=== PATIENT | female | born 1950 | race Caucasian/White ===

== ENCOUNTER → 2019-09-03 15:00 | Outpatient (BNVA) | payer MEDICARE, SELFPAY | PROVIDERS: Family Provider Nurse Practitioner Family; PCP Specialist; Visit Provider Internal Medicine | DX: L40.50 Arthropathic psoriasis, unspecified (principal); I10 Essential (primary) hypertension; G62.9 Polyneuropathy, unspecified | CPT/HCPCS: 80053; 85025; 85651 ==

== ENCOUNTER → 2019-10-17 15:02 | Outpatient (BNVA) | payer MEDICARE, SELFPAY | PROVIDERS: Family Provider Nurse Practitioner Family; PCP Specialist; Visit Provider Internal Medicine Rheumatology | DX: M19.90 Unspecified osteoarthritis, unspecified site (principal); Z79.899 Other long term (current) drug therapy; Z11.59 Encounter for screening for other viral diseases; Z11.1 Encounter for screening for respiratory tuberculosis; L40.0 Psoriasis vulgaris; Z72.89 Other problems related to lifestyle | CPT/HCPCS: 36415; 80076; 82306; 82565; 85025; 85651; 86140; 86431; 86480; 86704; 86803; 87340; 99204 ==

== ENCOUNTER 2019-10-22 12:22 | Outpatient (CLI) | payer MEDICARE, SELFPAY ==
--- NOTE | 2019-10-22 12:27 | XR_ITS ---
WS: [id number] RIGHT HAND: 3 VIEW(S) TECHNIQUE: PA, oblique and lateral. HISTORY: inflammatory arthritis COMPARISON: None available. No acute fracture or dislocation. Mild diffuse interphalangeal joint space narrowing. Most significant at the second DIP joint. No subl uxations. No erosions at the metacarpal heads. No ulnar styloid erosion. XR/XR hand RT min 3V* [id number] IMPRESSION: Mild osteoarthritis.
--- NOTE | 2019-10-22 12:27 | XR_ITS ---
WS: [id number] CHEST 2 VIEWS HISTORY: inflammatory arthritis COMPARISON: 06/24/2013 Lungs: Clear with no abnormality. No pleural effusion or pneumothorax. Cardiac size: Normal. Mediastinum/Aorta: Mild atherosclerosis aorta. Bones: Thoracic spondylosis. XR/XR chest 2V* [id number] IMPRESSION: Mild atherosclerosis aorta.
--- NOTE | 2019-10-22 12:27 | XR_ITS ---
WS: [id number] LEFT HAND: 3 VIEW(S) TECHNIQUE: PA, oblique and lateral. HISTORY: inflammatory arthritis COMPARISON: None available. No acute fracture or dislocation. Mild interphalangeal joint space narrowing. No erosions at the metacarpal heads. XR/XR hand LT min 3V* [id number] IMPRESSION: Mild osteoarthritis. No metacarpal head erosions.
--- NOTE | 2019-10-22 12:27 | XR_ITS ---
WS: [id number] LEFT FOOT: 3 VIEW(S) TECHNIQUE: AP, oblique and lateral. HISTORY: inflammatory arthritis COMPARISON: 10/22/2008 No acute fracture or dislocation. Normal tarsal/metatarsal alignment. No erosions. No soft tissue abnormality or bone destruction. Moderate calcaneal spur. XR/XR foot LT min 3V* [id number] IMPRESSION: No metatarsal erosions. Moderate calcaneal spur.
--- NOTE | 2019-10-22 12:27 | XR_ITS ---
WS: [id number] RIGHT FOOT: 3 VIEW(S) TECHNIQUE: AP, oblique and lateral. HISTORY: inflammatory arthritis COMPARISON: 10/22/2008 No acute fracture or dislocation. Normal tarsal/metatarsal alignment. No erosions. No soft tissue abnormality or bone destruction. Small calcaneal spur. XR/XR foot RT min 3V* [id number] IMPRESSION: No erosions or inflammatory arthritic changes.
== END 2019-10-22 12:23 | disposition home or self-care (01) ==
LOC: RADWPI 12:26
PROVIDERS: Family Provider Nurse Practitioner Family; PCP Specialist; Visit Provider Internal Medicine Rheumatology
DX: M77.31 Calcaneal spur, right foot; M19.042 Primary osteoarthritis, left hand; M19.041 Primary osteoarthritis, right hand; M77.32 Calcaneal spur, left foot; I70.0 Atherosclerosis of aorta
CPT/HCPCS: 71046; 73130; 73630

== ENCOUNTER 2019-11-06 20:48 | Emergency (ER) | payer MEDICARE, SELFPAY ==
[2019-11-06 21:07] VITALS: BP 164/73; PULSE 70; RESP 16; TEMP 36.7; O2SAT 99; BMI 26.4
--- NOTE | 2019-11-06 21:27 | W.ED.GENADLT ---
HPI - General Adult General: Chief complaint: General Medical Stated complaint: back pain Time Seen by Provider: 11/06/19 21:27 History of Present Illness: HPI narrative: Patient is a 69-year-old female who comes to the ED with right-sided abdominal and back pain. Past medical history of psoriatic arthritis, hypertension, peripheral neuropathy and hyperlipidemia. patient says pain started about 2 weeks ago, but has gotten significantly worse in the last 2 to 3 days. Patient says the pain is rated as a 9 out of 10. Location of the pain is right upper quadrant of the abdomen and right thoracic back. Patient has a prescription for hydrocodone's for her psoriatic arthritis and has taken those to help with right sided abdominal pain and that has not provided any relief. Denies any recent trauma or injury to cause pain. Endorses decreased appetite and having some nausea and vomiting due to pain over the last 24 hours. She denies any fever, chills, diarrhea, constipation, dysuria, hematuria. Associated symptoms: Reports nausea and vomiting; Deny chest pain, dyspnea, headache(s), rash or palpitations Review of Systems Const: Reports: change in appetite (decrease); Denies: fever(s), chills or fatigue Eyes: Denies: change in vision or eye discomfort ENMT: Denies: throat pain, odynophagia, nasal discharge or nasal congestion Card: Denies: chest pain, palpitations, edema, swelling of feet/ankles, dyspnea on exertion or orthopnea Resp: Denies: dyspnea, productive cough or non-productive cough GI: Reports: abdominal pain, nausea and vomiting; Denies: diarrhea, constipation or hematochezia : Denies: flank pain, dysuria or hematuria Musc: Reports: back pain (right sided thoracic back pain); Denies: neck pain or extremity swelling Skin/Breast: Denies: rash or new lesions Neuro: Denies: headache(s), numbness in extremities or weakness in extremities PFS ED PFSH: Medical History Depression Essential (primary) hypertension Hyperlipemia Peripheral neuropathy Surgical History History of appendectomy History of carpal tunnel surgery History of section Family History Mother Cancer Other Aneurysm COPD (chronic obstructive pulmonary disease) Social History Smoking and tobacco status: former smoker Alcohol intake: former History of recent travel: No Current gender identity: Female Physical Exam Const: COMMON NORMALS: no acute distress, patient oriented x3 and alert GENERAL APPEARANCE: cooperative, comfortable and well hydrated HENMT: COMMON NORMALS: normocephalic HEAD & SCALP: normocephalic MOUTH: Normal oral and palatal mucosa present THROAT: posterior oropharynx normal and uvula midline Eye: COMMON NORMALS: Equal, round and reactive pupils present PUPIL: Yes Equal, round and reactive pupils present Neck/C-Spine: COMMON NORMALS: supple GENERAL: Yes normal visual inspection Resp: COMMON NORMALS: normal respiratory effort, No retractions, No use of accessory muscles and clear to auscultation bilaterally AUSCULTATION: clear to auscultation bilaterally Cardio: COMMON NORMALS: regular rate, regular rhythm, S1 normal heart sound present, S2 normal heart sound present, No gallops present (Cardio), No clicks present (Cardio), No murmurs present (Cardio) and Peripheral pulses 2+ throughout RATE: regular rate RHYTHM: regular rhythm HEART SOUNDS: S1 normal heart sound present and S2 normal heart sound present PERIPHERAL PULSES: Peripheral pulses 2+ throughout GI: COMMON NORMALS: Soft to palpation, non-tender and no masses INSPECTION: Yes normal to inspection and Yes central obesity AUSCULTATION: Yes normoactive bowel sounds PALPATION: Yes Soft to palpation and Yes Tenderness to palpation present (GI) Details: RUQ (mod tenderness, Positive dunham's sign) : COMMON NORMALS: Yes no CVA tenderness BLADDER/KIDNEY EXAM: Yes no CVA tenderness Back/Pelvis: COMMON NORMALS: no CVA tenderness Extremity: COMMON NORMALS: normal to inspection and no pedal edema Neuro: COMMON NORMALS: patient oriented x3 and moves all extremities SENSORIUM/ORIENTATION: Yes alert Skin: COMMON NORMALS: no rashes or lesions noted GENERAL SKIN EXAM: no rashes or lesions noted and dry skin Course Vital Signs: Vital signs: Vital Signs Temperature 98.1 F 11/06/19 21:07 Pulse Rate 60 11/07/19 00:30 Respiratory Rate 16 11/07/19 00:30 Blood Pressure 148/77 11/07/19 00:30 Pulse Oximetry 98 11/07/19 00:30 MDM - General Adult MDM Narrative: Medical decision making narrative: Patient is a 69-year-old female comes to the ED with right-sided abdominal pain and back pain. Physical exam was remarkable for right upper quadrant tenderness and a positive Dunham sign. Vital signs BP 148/77, pulse 60, respirations 16, temp 98.1, O2 98% on room air. CBC and UA was unremarkable, patient had a creatinine of 1.5 and a GFR of 32 but after looking back in patient's records that appears to be her norm. Sodium was 132. Total bili 0.3. ultrasound gallbladder was performed and showed some common bile duct dilation but no gallbladder wall thickness or stones seen. Patient was given IV fluids, Zofran and morphine to help manage pain while here in the ED. Patient diagnosed with biliary colic and told to follow-up with PCP in the next 5 to 7 days. I placed general surgery referral with case management. Patient has previously prescribed hydrocodone meds for psoriatic arthritis pain and I told her to take her hydrocodone pills to help with pain as needed. I told patient she can return to the ED if she is have any worsening symptoms. Patient understood and agreed with plan. Lab Data: Attestation: I reviewed the patient's lab results. Labs: Lab Results 11/06/19 11/06/19 11/06/19 Range/Units 22:40 22:40 23:01 WBC 8.6 (4.0-10.0) 10^3/ uL RBC 4.10 (4.1-5.3) 10^6/u L Hgb 11.7 (11.5-15.3) g/dL Hct 35.4 L (37.0-47.0) % MCV 86.3 (81-99) fL MCH 28.5 (28.0-34.0) pg MCHC 33.1 (30.0-36.0) g/dL RDW 12.7 (12.1-15.1) % Plt Count 306 (130-400) 10^3/c mm MPV 9.5 (7.4-10.4) fL Neut % (Auto) 61.8 % Lymph % (Auto) 28.2 % [place] % (Auto) 5.8 % Eos % (Auto) 3.5 % Baso % (Auto) 0.5 % Neut # (Auto) 5.3 (1.8-7.7) 10^3/u L Lymph # (Auto) 2.4 (0.8-4.8) 10^3/u L [place] # (Auto) 0.5 (0.2-0.9) 10^3/u L Eos # (Auto) 0.3 (0.0-0.8) 10^3/u L Baso # (Auto) 0.0 (0.0-0.1) 10^3/u L Nucleated RBC % (a uto) 0 % Nucleated RBCs # 0.0 /100WBC Sodium 132 L (136-145) mmol/L Potassium 4.2 (3.5-5.1) mmol/L Chloride 95 L (98-107) mmol/L Carbon Dioxide 22 (22-29) mmol/L Anion Gap 19.2 H (5-19) BUN 32 H (8-23) mg/dL Creatinine 1.5 H (0.5-0.9) mg/dL GFR Calculation 34.6 L (90-130) mL/min Glucose 115 (65-115) mg/dL Calculated Osmolal ity 272 L (285-295) mOsm/k g Calcium 10.4 (8.5-10.5) mg/dL Total Bilirubin 0.3 (0.15-1.2) mg/dL AST 22 (0-32) U/L ALT 14 (0-33) U/L Alkaline Phosphata se 109 H (35-105) IU/L Total Protein 8.4 (6.6-8.7) g/dL Albumin 4.7 (3.5-5.2) g/dL Globulin 3.7 (1.3-4.6) g/dL Lipase 22 (13-60) U/L Urine Color Yellow (Yellow) Urine Appearance Clear (CLEAR) Urine pH 5 (5-7) Ur Specific Gravit y 1.010 (1.005-1.030) Urine Protein Neg (Negative) Urine Glucose (UA) Norm (Normal) Urine Ketones Negative (Negative) Urine Blood 2+ H (Negative) Urine Nitrate Negative (Negative) Urine Bilirubin Neg (NEGATIVE) Urine Urobilinogen Norm (Negative) mg/dL Ur Leukocyte Jia ase 1+ H (Negative) Urine RBC Rare (0-2) /hpf Urine WBC 0-4 H (0-5) /hpf Ur Squamous Epith Cells 0-4 H (0-5) Urine Bacteria 1+ H (NONE) Imaging Data^: US: Attestation: I personally reviewed and interpreted this imaging study as follows: Radiologist's impression: Ultrasound gallbladder?prelim report--no gallbladder wall thickening, stones or inflammation. Common bile duct is dilated. Discharge Plan Discharge Patient Disposition: Home, Self-Care Clinical Impression: Biliary colic symptom Condition: Stable Prescriptions: No Action losartan-hydrochlorothiazide [Hyzaar] 100-25 mg tablet 1 tab PO DAILY RF: 0 amlodipine 2.5 mg tablet 2.5 mg PO DAILY RF: 0 hydrochlorothiazide 12.5 mg tablet 12.5 mg PO DAILY RF: 0 hydrocodone-acetaminophen [[place]] 7.5-325 mg tablet 1 - 2 tab PO Q6H PRNRF: 0 baclofen 10 mg tablet 10 mg PO TID RF: 0 ciprofloxacin HCl 500 mg tablet 500 mg PO BID Qty: 14 RF: 0 leflunomide 10 mg tablet 10 mg PO DAILY Qty: 30 RF: 2 Linzess 290 mcg capsule 290 mcg PO DAILY Qty: 30 RF: 3 Enbrel 50 mg/mL (1 mL) syringe 50 mg SUBCUT .Q7days Qty: 4 RF: 3 Discharge Orders: Discharge Order (Routine); Ordered 11/06/19 Ordered By: Alan Waldron Referrals: BRADFORD Travis, [facility] [Primary Care Provider] - Discharge Diet: Low Fat Discharge Activity: Resume usual activity Patient Instructions: Biliary Colic (ED) Activity Restrictions/Additional Instructions: Call your PCP to set up a follow-up appointment in the next 5 to 7 days. I placed a referral to general surgery, so you should be receiving a call from them to schedule an appointment in the next few days. Monitor your diet and try to avoid greasy and fatty foods that could aggravate symptoms. If you are having any pain you can take your previously prescribed hydrocodone tablets. Drink plenty of fluids and stay hydrated. 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
--- NOTE | 2019-11-06 22:11 | US_ITS ---
WS: [id number] ULTRASOUND ABDOMEN LIMITED CLINICAL INFORMATION: RUQ pain with positive johnson's sign COMPARISON: None. FINDINGS: Liver Size: Normal. Craniocaudal length: 11.9 cm. Echogenicity: Normal. Surface nodularity: None. Mass (size and location): None. Bile ducts Intrahepatic ducts: Dilated Common bile duct diameter: 1.3 cm. Gallbladder Fluid distended gallbladder. No significant gallbladder wall thickening. Gallbladder wall measures 1. 2 mm. No pericholecystic fluid. Pancreas Normal as visualized. Right kidney: Normal. Hydronephrosis: None. Size: 10.1 cm x 4.1 cm x 4.3 cm. Abdominal aorta and IVC Visualized portions are normal. Ascites: None. US/US gall bladder [id number] IMPRESSION: 1. Fluid distended gallbladder with normal gallbladder wall. No significant ch olelithiasis. 2. Dilated extrahepatic and common bile duct. Common bile duct measures 13 mm. This can be further evaluated MRCP.
[2019-11-06 22:48] LABS: Basophils % 0.5 %; Eosinophils # 0.3 10^3/uL (0.0-0.8); Eosinophils % 3.5 %; Hematocrit 35.4 % (37.0-47.0); Hemoglobin 11.7 g/dL (11.5-15.3); Lymphocytes # 2.4 10^3/uL (0.8-4.8); Lymphocytes % 28.2 %; Mean Corpuscular HGB Conc 33.1 g/dL (30.0-36.0); Mean Corpuscular Hemoglobin 28.5 pg (28.0-34.0); Mean Corpuscular Volume 86.3 fL (81-99); Mean Platelet Volume 9.5 fL (7.4-10.4); Monocytes # 0.5 10^3/uL (0.2-0.9); Monocytes % 5.8 %; Neutrophils # 5.3 10^3/uL (1.8-7.7); Neutrophils % 61.8 %; Nucleated Red Blood Cells % 0 %; Platelet Count 306 10^3/cmm (130-400); Red Cell Distribution Width 12.7 % (12.1-15.1); White Blood Count 8.6 10^3/uL (4.0-10.0)
[2019-11-06] MEDS: ketorolac 30 mg/mL INJ IVP (22:48)
[2019-11-06] MEDS: orphenadrine 30 mg/mL Inj 2 mL 60 MG IVP (22:49)
[2019-11-06] MEDS: sodium chloride 0.9% 500 ML IV (22:49)
[2019-11-06 23:02] LABS: Alanine Aminotransferase 14 U/L (0-33); Albumin Level 4.7 g/dL (3.5-5.2); Alkaline Phosphatase 109 IU/L (35-105); Anion Gap 19.2 (5-19); Aspartate Amino Transferase 22 U/L (0-32); Blood Urea Nitrogen 32 mg/dL (8-23); Calcium 10.4 mg/dL (8.5-10.5); Carbon Dioxide 22 mmol/L (22-29); Chloride 95 mmol/L (98-107); Globulin 3.7 g/dL (1.3-4.6); Glomerular Filtration Rate 34.6 mL/min (90-130); Glucose 115 mg/dL (65-115); Lipase 22 U/L (13-60); Osmolality Calculated 272 mOsm/kg (285-295); Potassium 4.2 mmol/L (3.5-5.1); Sodium 132 mmol/L (136-145); Total Bilirubin 0.3 mg/dL (0.15-1.2); Total Protein 8.4 g/dL (6.6-8.7)
[2019-11-06 23:23] VITALS: RESP 18; O2SAT 98
[2019-11-06] MEDS: ondansetron 2 mg/ML SDV 2 mL 4 MG IVP (23:23)
[2019-11-06] MEDS: morphine 4 mg/mL SDV 1 mL IVP (23:23)
[2019-11-06 23:33] LABS: Bacteria Urine 1+; Bilirubin Urine Neg (NEGATIVE); Blood Urine 2+ (Negative); Glucose Urine UA Norm (Normal); Ketones Urine Negative (Negative); Leukocyte Esterase Urine 1+ (Negative); Nitrate Urine Negative (Negative); Protein Urine Neg (Negative); RBC Urine RARE /hpf (0-2); Squamous Epithelial Cell Urine 0-4 (0-5); Urine Appearance Clear (CLEAR); Urine Color Yellow (Yellow); Urobilinogen Urine Norm (Negative); WBC Urine 0-4 /hpf (0-5); pH Urine 5 (5-7)
[2019-11-07 00:30] VITALS: BP 148/77; PULSE 60; RESP 16; O2SAT 98
--- NOTE | 2019-11-07 10:33 | DCPLANNER ---
manager property had message to schedule a follow up appointment for patient with general surgery. manager property called [facility], spoke with Maria E, a follow up appointment was scheduled for Tuesday, November 12, 2019 at 3:[address] Slaughter. Clinic will call patient with appointment information.
--- NOTE | 2019-11-13 14:21 | DCPLANNER ---
Patients appointment scheduled for 11.12.19 with [facility] was cancelled.
== END 2019-11-07 00:32 | disposition home or self-care (01) ==
PROVIDERS: Emergency Provider Physician Assistant; PCP Nurse Practitioner Family
DX: K80.50 Calculus of bile duct without cholangitis or cholecystitis without obstruction (principal); I10 Essential (primary) hypertension; E78.5 Hyperlipidemia, unspecified; Z87.891 Personal history of nicotine dependence
CPT/HCPCS: 12345; 76705; 80053; 81001; 83690; 85025; 96361; 96374; 96375; 99282; 99283; J1885; J2270; J2360; J2405; J7040

== ENCOUNTER 2019-11-28 09:21 | Outpatient (CLI) | payer MEDICARE, SELFPAY ==
[2019-11-28 10:10] LABS: Basophils % 0.7 %; Eosinophils # 0.2 10^3/uL (0.0-0.8); Eosinophils % 4.5 %; Hematocrit 36.8 % (37.0-47.0); Hemoglobin 11.9 g/dL (11.5-15.3); Lymphocytes # 2.2 10^3/uL (0.8-4.8); Lymphocytes % 50.7 %; Mean Corpuscular HGB Conc 32.3 g/dL (30.0-36.0); Mean Corpuscular Hemoglobin 29.2 pg (28.0-34.0); Mean Corpuscular Volume 90.2 fL (81-99); Mean Platelet Volume 9.9 fL (7.4-10.4); Monocytes # 0.3 10^3/uL (0.2-0.9); Monocytes % 5.7 %; Neutrophils # 1.7 10^3/uL (1.8-7.7); Neutrophils % 38.2 %; Nucleated Red Blood Cells % 0 %; Platelet Count 275 10^3/cmm (130-400); Red Blood Count 4.08 10^6/uL (4.1-5.3); Red Cell Distribution Width 13.1 % (12.1-15.1); White Blood Count 4.4 10^3/uL (4.0-10.0)
[2019-11-28 10:24] LABS: Alanine Aminotransferase 10 U/L (0-33); Albumin Level 4.7 g/dL (3.5-5.2); Alkaline Phosphatase 104 IU/L (35-105); Aspartate Amino Transferase 16 U/L (0-32); Globulin 2.7 g/dL (1.3-4.6); Glomerular Filtration Rate 37.5 mL/min (90-130); Total Bilirubin 0.2 mg/dL (0.15-1.2); Total Protein 7.4 g/dL (6.6-8.7)
[2019-11-28 11:04] LABS: C Reactive Protein 0.8 mg/L (0.0-4.9)
[2019-11-28 11:10] LABS: Erythrocyte Sedimentation Rate 38 mm/hr (0-15)
== END 2019-11-28 09:22 | disposition home or self-care (01) ==
LOC: LAB 09:27
PROVIDERS: PCP Internal Medicine; Visit Provider Internal Medicine Rheumatology
DX: L40.50 Arthropathic psoriasis, unspecified (principal); Z79.899 Other long term (current) drug therapy
CPT/HCPCS: 36415; 80076; 82565; 85025; 85651; 86140

== ENCOUNTER → 2019-12-24 13:00 | Outpatient (BNVA) | payer MEDICARE, SELFPAY | PROVIDERS: PCP Nurse Practitioner Family; Visit Provider Internal Medicine Rheumatology | DX: L40.50 Arthropathic psoriasis, unspecified (principal); L40.0 Psoriasis vulgaris; Z79.899 Other long term (current) drug therapy; K82.8 Other specified diseases of gallbladder | CPT/HCPCS: 99214 ==

== ENCOUNTER 2020-01-14 07:54 | Outpatient (CLI) | payer MEDICARE, SELFPAY ==
--- NOTE | 2020-01-14 08:02 | NM_ITS ---
WS: [id number] NUCLEAR MEDICINE HIDA SCAN CLINICAL INFORMATION: DYSFUNCTIONAL GALLBLADDER TECHNIQUE: Following intravenous administration of 8.2 mCi of technetium 99m mebrofenin, images of th e abdomen were obtained over the course of 60 minutes. Next, gallbladder ejection fraction was determ ined by obtaining preprandial and one-hour postprandial images of the gallbladder following oral shawn stion of Ensure. COMPARISON: Ultrasound November 06, 2019 and HIDA 8 FINDINGS: Normal hepatic uptake at 5 minutes. Common bile duct is visualized by 20 minutes. Normal gallbladder at 40 minutes. No evidence of acute cholecystitis. Gallbladder ejection fraction 68% within normal limits. No evidence of chronic cholecystitis. NM/NM hepatobiliary w phar* [id number] IMPRESSION: 1. No evidence of acute or chronic cholecystitis. 2. Gallbladder ejection fraction 68% within normal limits
== END 2020-01-14 07:55 | disposition home or self-care (01) ==
PROVIDERS: PCP Nurse Practitioner Family; Visit Provider Internal Medicine
DX: K82.8 Other specified diseases of gallbladder (principal)
CPT/HCPCS: 78227; A9537

== ENCOUNTER → 2020-05-03 13:03 | Outpatient (BNVA) | payer MEDICARE, SELFPAY | PROVIDERS: PCP Internal Medicine; Visit Provider Internal Medicine Rheumatology | DX: L40.50 Arthropathic psoriasis, unspecified (principal); Z79.899 Other long term (current) drug therapy; L40.0 Psoriasis vulgaris; M15.9 Polyosteoarthritis, unspecified; Z87.891 Personal history of nicotine dependence | CPT/HCPCS: 99214 ==

== ENCOUNTER 2020-05-05 09:13 | Outpatient (CLI) | payer MEDICARE, SELFPAY ==
[2020-05-05 09:42] LABS: Basophils % 0.1 %; Hematocrit 37.2 % (37.0-47.0); Lymphocytes % 12.9 %; Mean Corpuscular HGB Conc 32.3 g/dL (30.0-36.0); Mean Corpuscular Hemoglobin 29.8 pg (28.0-34.0); Mean Corpuscular Volume 92.3 fL (81-99); Mean Platelet Volume 9.7 fL (7.4-10.4); Monocytes # 0.4 10^3/uL (0.2-0.9); Monocytes % 5.3 %; Neutrophils # 6.53 10^3/uL (1.8-7.7); Neutrophils % 81.1 %; Nucleated Red Blood Cells % 0 %; Platelet Count 259 10^3/cmm (130-400); Red Blood Count 4.03 10^6/uL (4.1-5.3); Red Cell Distribution Width 13.5 % (12.1-15.1); White Blood Count 8.1 10^3/uL (4.0-10.0)
[2020-05-05 10:02] LABS: Alanine Aminotransferase 211 U/L (0-33); Albumin Level 4.7 g/dL (3.5-5.2); Alkaline Phosphatase 153 IU/L (35-105); Aspartate Amino Transferase 80 U/L (0-32); C Reactive Protein 0.4 mg/L (0.0-4.9); Globulin 3.1 g/dL (1.3-4.6); Glomerular Filtration Rate 32.2 mL/min (90-130); Total Bilirubin 0.2 mg/dL (0.15-1.2); Total Protein 7.8 g/dL (6.6-8.7)
[2020-05-05 10:35] LABS: Erythrocyte Sedimentation Rate 28 mm/hr (0-15)
== END 2020-05-05 09:14 | disposition home or self-care (01) ==
LOC: LAB 09:18
PROVIDERS: PCP Internal Medicine; Visit Provider Internal Medicine Rheumatology
DX: Z79.899 Other long term (current) drug therapy (principal)
CPT/HCPCS: 36415; 80076; 82565; 85025; 85651; 86140

== ENCOUNTER → 2020-05-12 11:00 | Outpatient (BNVA) | payer MEDICARE, SELFPAY | PROVIDERS: PCP Internal Medicine; Visit Provider Internal Medicine Rheumatology | DX: Z79.899 Other long term (current) drug therapy (principal) | CPT/HCPCS: 80076; 82565; 85025; 85651; 86140 ==

== ENCOUNTER 2020-05-21 13:34 | Outpatient (CLI) | payer MEDICARE, SELFPAY ==
[2020-05-21 14:14] LABS: Basophils % 0.6 %; Eosinophils # 0.1 10^3/uL (0.0-0.8); Eosinophils % 2.7 %; Hematocrit 34.7 % (37.0-47.0); Hemoglobin 11.2 g/dL (11.5-15.3); Lymphocytes % 42.1 %; Mean Corpuscular HGB Conc 32.3 g/dL (30.0-36.0); Mean Corpuscular Hemoglobin 29.6 pg (28.0-34.0); Mean Corpuscular Volume 91.6 fL (81-99); Monocytes # 0.5 10^3/uL (0.2-0.9); Monocytes % 10.5 %; Neutrophils # 2.08 10^3/uL (1.8-7.7); Neutrophils % 43.7 %; Nucleated Red Blood Cells % 0 %; Platelet Count 204 10^3/cmm (130-400); Red Blood Count 3.79 10^6/uL (4.1-5.3); Red Cell Distribution Width 13.4 % (12.1-15.1); White Blood Count 4.8 10^3/uL (4.0-10.0)
[2020-05-21 14:34] LABS: Alanine Aminotransferase 66 U/L (0-33); Albumin Level 3.8 g/dL (3.5-5.2); Alkaline Phosphatase 79 IU/L (35-105); Aspartate Amino Transferase 46 U/L (0-32); Globulin 2.8 g/dL (1.3-4.6); Glomerular Filtration Rate 40.9 mL/min (90-130); Total Bilirubin 0.3 mg/dL (0.15-1.2); Total Protein 6.6 g/dL (6.6-8.7)
== END 2020-05-21 13:35 | disposition home or self-care (01) ==
PROVIDERS: PCP Internal Medicine; Visit Provider Internal Medicine Rheumatology
DX: L40.0 Psoriasis vulgaris (principal); Z79.899 Other long term (current) drug therapy
CPT/HCPCS: 36415; 80076; 82565; 85025

== ENCOUNTER 2020-06-14 16:53 | Outpatient (CLI) | payer MEDICARE, SELFPAY ==
[2020-06-14 17:33] LABS: Basophils % 0.7 %; Eosinophils # 0.3 10^3/uL (0.0-0.8); Eosinophils % 6.1 %; Hematocrit 37.7 % (37.0-47.0); Hemoglobin 11.9 g/dL (11.5-15.3); Lymphocytes # 2.1 10^3/uL (0.8-4.8); Lymphocytes % 47.3 %; Mean Corpuscular HGB Conc 31.6 g/dL (30.0-36.0); Mean Corpuscular Hemoglobin 29.5 pg (28.0-34.0); Mean Corpuscular Volume 93.5 fL (81-99); Monocytes # 0.4 10^3/uL (0.2-0.9); Monocytes % 9.9 %; Neutrophils # 1.59 10^3/uL (1.8-7.7); Neutrophils % 35.8 %; Nucleated Red Blood Cells % 0 %; Platelet Count 254 10^3/cmm (130-400); Red Blood Count 4.03 10^6/uL (4.1-5.3); Red Cell Distribution Width 12.8 % (12.1-15.1); White Blood Count 4.4 10^3/uL (4.0-10.0)
[2020-06-14 17:48] LABS: INR 0.99 (0.8-1.2)
[2020-06-14 17:49] LABS: Partial Thromboplastin Time 34.5 SECONDS (23.9-36.7)
== END 2020-06-14 16:54 | disposition home or self-care (01) ==
PROVIDERS: PCP Internal Medicine; Visit Provider Internal Medicine Gastroenterology
DX: K75.4 Autoimmune hepatitis (principal)
CPT/HCPCS: 36415; 85025; 85610; 85730

== ENCOUNTER 2020-08-17 12:53 | Outpatient (CLI) | payer MEDICARE, SELFPAY ==
[2020-08-17 13:19] LABS: Basophils % 0.1 %; Hematocrit 41.8 % (37.0-47.0); Hemoglobin 13.4 g/dL (11.5-15.3); Lymphocytes # 1.5 10^3/uL (0.8-4.8); Mean Corpuscular HGB Conc 32.1 g/dL (30.0-36.0); Mean Corpuscular Hemoglobin 29.8 pg (28.0-34.0); Mean Corpuscular Volume 93.1 fL (81-99); Monocytes # 0.3 10^3/uL (0.2-0.9); Monocytes % 2.8 %; Neutrophils # 8.52 10^3/uL (1.8-7.7); Neutrophils % 82.4 %; Nucleated Red Blood Cells % 0 %; Platelet Count 319 10^3/cmm (130-400); Red Blood Count 4.49 10^6/uL (4.1-5.3); Red Cell Distribution Width 12.2 % (12.1-15.1); White Blood Count 10.3 10^3/uL (4.0-10.0)
[2020-08-17 13:30] LABS: INR 0.91 (0.8-1.2)
[2020-08-17 13:31] LABS: Partial Thromboplastin Time 20.6 SECONDS (23.9-36.7)
== END 2020-08-17 12:54 | disposition home or self-care (01) ==
LOC: LAB 12:55
PROVIDERS: PCP Internal Medicine; Visit Provider Internal Medicine Gastroenterology
DX: K75.4 Autoimmune hepatitis (principal)
CPT/HCPCS: 36415; 85025; 85610; 85730

== ENCOUNTER 2020-09-22 09:50 | Outpatient (CLI) | payer MEDICARE, SELFPAY ==
[2020-09-22 10:27] LABS: Basophils % 0.3 %; Eosinophils % 0.3 %; Hematocrit 37.5 % (37.0-47.0); Hemoglobin 11.6 g/dL (11.5-15.3); Lymphocytes # 1.1 10^3/uL (0.8-4.8); Mean Corpuscular HGB Conc 30.9 g/dL (30.0-36.0); Mean Corpuscular Volume 93.8 fL (81-99); Mean Platelet Volume 8.9 fL (7.4-10.4); Monocytes # 0.3 10^3/uL (0.2-0.9); Monocytes % 4.5 %; Neutrophils # 6.06 10^3/uL (1.8-7.7); Neutrophils % 80.1 %; Nucleated Red Blood Cells % 0 %; Platelet Count 255 10^3/cmm (130-400); Red Cell Distribution Width 13.5 % (12.1-15.1); White Blood Count 7.6 10^3/uL (4.0-10.0)
[2020-09-22 10:43] LABS: Alanine Aminotransferase 15 U/L (0-33); Albumin Level 4.1 g/dL (3.5-5.2); Alkaline Phosphatase 41 IU/L (35-105); Anion Gap 13.3 (5-19); Aspartate Amino Transferase 13 U/L (0-32); Blood Urea Nitrogen 22 mg/dL (8-23); Calcium 8.8 mg/dL (8.5-10.5); Carbon Dioxide 28 mmol/L (22-29); Chloride 102 mmol/L (98-107); Globulin 2.6 g/dL (1.3-4.6); Glomerular Filtration Rate 49.4 mL/min (90-130); Glucose 104 mg/dL (65-115); Osmolality Calculated 292 mOsm/kg (285-295); Potassium 4.3 mmol/L (3.5-5.1); Sodium 139 mmol/L (136-145); Total Bilirubin 0.3 mg/dL (0.15-1.2); Total Protein 6.7 g/dL (6.6-8.7)
== END 2020-09-22 09:51 | disposition home or self-care (01) ==
LOC: LAB 10:03
PROVIDERS: PCP Internal Medicine; Visit Provider Internal Medicine Gastroenterology
DX: K75.4 Autoimmune hepatitis (principal)
CPT/HCPCS: 36415; 80053; 85025

== ENCOUNTER 2020-10-14 13:36 | Outpatient (CLI) | payer MEDICARE, SELFPAY ==
[2020-10-14 14:03] LABS: Basophils % 0.2 %; Hematocrit 36.8 % (37.0-47.0); Hemoglobin 11.8 g/dL (11.5-15.3); Lymphocytes # 1.5 10^3/uL (0.8-4.8); Lymphocytes % 17.5 %; Mean Corpuscular HGB Conc 32.1 g/dL (30.0-36.0); Mean Corpuscular Hemoglobin 29.2 pg (28.0-34.0); Mean Corpuscular Volume 91.1 fL (81-99); Mean Platelet Volume 9.1 fL (7.4-10.4); Monocytes # 0.3 10^3/uL (0.2-0.9); Monocytes % 3.8 %; Neutrophils # 6.78 10^3/uL (1.8-7.7); Neutrophils % 77.5 %; Nucleated Red Blood Cells % 0 %; Platelet Count 346 10^3/cmm (130-400); Red Blood Count 4.04 10^6/uL (4.1-5.3); Red Cell Distribution Width 13.3 % (12.1-15.1); White Blood Count 8.8 10^3/uL (4.0-10.0)
[2020-10-14 14:15] LABS: Alanine Aminotransferase 11 U/L (0-33); Alkaline Phosphatase 50 IU/L (35-105); Anion Gap 15.6 (5-19); Aspartate Amino Transferase 12 U/L (0-32); Blood Urea Nitrogen 18 mg/dL (8-23); Calcium 8.7 mg/dL (8.5-10.5); Carbon Dioxide 24 mmol/L (22-29); Chloride 102 mmol/L (98-107); Globulin 2.5 g/dL (1.3-4.6); Glomerular Filtration Rate 55.1 mL/min (90-130); Glucose 102 mg/dL (65-115); Osmolality Calculated 286 mOsm/kg (285-295); Potassium 4.6 mmol/L (3.5-5.1); Sodium 137 mmol/L (136-145); Total Bilirubin 0.3 mg/dL (0.15-1.2); Total Protein 6.5 g/dL (6.6-8.7)
== END 2020-10-14 13:37 | disposition home or self-care (01) ==
LOC: LAB 13:39
PROVIDERS: PCP Internal Medicine; Visit Provider Internal Medicine Gastroenterology
DX: K75.4 Autoimmune hepatitis (principal)
CPT/HCPCS: 36415; 80053; 85025

== ENCOUNTER → 2020-10-20 13:11 | Outpatient (BNVA) | payer MEDICARE, SELFPAY | PROVIDERS: PCP Internal Medicine; Visit Provider Internal Medicine Rheumatology | DX: L40.50 Arthropathic psoriasis, unspecified (principal); L40.0 Psoriasis vulgaris; K75.4 Autoimmune hepatitis; Z79.899 Other long term (current) drug therapy; K82.8 Other specified diseases of gallbladder; Z87.891 Personal history of nicotine dependence | CPT/HCPCS: 99214 ==

== ENCOUNTER 2020-11-18 16:53 | Outpatient (CLI) | payer MEDICARE, SELFPAY ==
[2020-11-18 17:25] LABS: Basophils % 0.4 %; Eosinophils # 0.1 10^3/uL (0.0-0.8); Eosinophils % 1.8 %; Hemoglobin 11.4 g/dL (11.5-15.3); Lymphocytes # 2.7 10^3/uL (0.8-4.8); Lymphocytes % 49.7 %; Mean Corpuscular HGB Conc 30.8 g/dL (30.0-36.0); Mean Corpuscular Hemoglobin 28.4 pg (28.0-34.0); Monocytes # 0.4 10^3/uL (0.2-0.9); Neutrophils % 40.7 %; Nucleated Red Blood Cells % 0 %; Platelet Count 364 10^3/cmm (130-400); Red Blood Count 4.02 10^6/uL (4.1-5.3); Red Cell Distribution Width 12.9 % (12.1-15.1); White Blood Count 5.4 10^3/uL (4.0-10.0)
[2020-11-18 17:53] LABS: Alanine Aminotransferase 8 U/L (0-33); Albumin Level 3.5 g/dL (3.5-5.2); Alkaline Phosphatase 110 IU/L (35-105); Anion Gap 14.4 (5-19); Aspartate Amino Transferase 14 U/L (0-32); Blood Urea Nitrogen 11 mg/dL (8-23); Calcium 8.4 mg/dL (8.5-10.5); Carbon Dioxide 23 mmol/L (22-29); Chloride 102 mmol/L (98-107); Globulin 2.9 g/dL (1.3-4.6); Glomerular Filtration Rate 62.3 mL/min (90-130); Glucose 132 mg/dL (65-115); Osmolality Calculated 283 mOsm/kg (285-295); Potassium 3.4 mmol/L (3.5-5.1); Sodium 136 mmol/L (136-145); Total Bilirubin 0.2 mg/dL (0.15-1.2); Total Protein 6.4 g/dL (6.6-8.7)
== END 2020-11-18 16:54 | disposition home or self-care (01) ==
LOC: LAB 16:57
PROVIDERS: PCP Internal Medicine; Visit Provider Internal Medicine Gastroenterology
DX: K75.4 Autoimmune hepatitis (principal)
CPT/HCPCS: 36415; 80053; 85025

== ENCOUNTER 2020-12-23 14:22 | Outpatient (CLI) | payer MEDICARE, SELFPAY ==
[2020-12-23 14:44] LABS: Basophils % 0.2 %; Eosinophils % 0.2 %; Hematocrit 38.6 % (37.0-47.0); Hemoglobin 12.1 g/dL (11.5-15.3); Lymphocytes # 2.9 10^3/uL (0.8-4.8); Lymphocytes % 32.9 %; Mean Corpuscular HGB Conc 31.3 g/dL (30.0-36.0); Mean Corpuscular Hemoglobin 26.9 pg (28.0-34.0); Mean Corpuscular Volume 85.8 fL (81-99); Monocytes # 0.3 10^3/uL (0.2-0.9); Monocytes % 3.7 %; Neutrophils # 5.58 10^3/uL (1.8-7.7); Neutrophils % 62.8 %; Nucleated Red Blood Cells % 0 %; Platelet Count 316 10^3/cmm (130-400); Red Cell Distribution Width 12.8 % (12.1-15.1); White Blood Count 8.9 10^3/uL (4.0-10.0)
[2020-12-23 14:59] LABS: Alanine Aminotransferase 13 U/L (0-33); Albumin Level 3.9 g/dL (3.5-5.2); Alkaline Phosphatase 66 IU/L (35-105); Anion Gap 16.3 (5-19); Aspartate Amino Transferase 17 U/L (0-32); Blood Urea Nitrogen 18 mg/dL (8-23); Calcium 8.5 mg/dL (8.5-10.5); Carbon Dioxide 21 mmol/L (22-29); Chloride 103 mmol/L (98-107); Globulin 2.8 g/dL (1.3-4.6); Glomerular Filtration Rate 71.3 mL/min (90-130); Glucose 126 mg/dL (65-115); Osmolality Calculated 285 mOsm/kg (285-295); Potassium 4.3 mmol/L (3.5-5.1); Sodium 136 mmol/L (136-145); Total Bilirubin 0.2 mg/dL (0.15-1.2); Total Protein 6.7 g/dL (6.6-8.7)
== END 2020-12-23 14:23 | disposition home or self-care (01) ==
LOC: LAB 14:29
PROVIDERS: PCP Internal Medicine; Visit Provider Internal Medicine Gastroenterology
DX: K75.4 Autoimmune hepatitis (principal)
CPT/HCPCS: 36415; 80053; 85025

== ENCOUNTER → 2021-01-12 10:34 | Outpatient (BNVA) | payer MEDICARE, SELFPAY | PROVIDERS: PCP Internal Medicine; Visit Provider Internal Medicine Rheumatology | DX: L40.50 Arthropathic psoriasis, unspecified (principal); N12 Tubulo-interstitial nephritis, not specified as acute or chronic; Z71.89 Other specified counseling; Z79.899 Other long term (current) drug therapy | CPT/HCPCS: 36415 ==

== ENCOUNTER 2021-01-25 11:12 | Outpatient (CLI) | payer MEDICARE, SELFPAY ==
[2021-01-25 11:34] LABS: Basophils % 0.3 %; Eosinophils # 0.1 10^3/uL (0.0-0.8); Eosinophils % 0.9 %; Hematocrit 37.7 % (37.0-47.0); Hemoglobin 11.3 g/dL (11.5-15.3); Lymphocytes # 2.8 10^3/uL (0.8-4.8); Lymphocytes % 35.4 %; Mean Corpuscular Hemoglobin 26.8 pg (28.0-34.0); Mean Corpuscular Volume 89.3 fL (81-99); Mean Platelet Volume 9.5 fL (7.4-10.4); Monocytes # 0.3 10^3/uL (0.2-0.9); Monocytes % 4.3 %; Neutrophils # 4.65 10^3/uL (1.8-7.7); Neutrophils % 58.8 %; Nucleated Red Blood Cells % 0 %; Platelet Count 264 10^3/cmm (130-400); Red Blood Count 4.22 10^6/uL (4.1-5.3); Red Cell Distribution Width 12.9 % (12.1-15.1); White Blood Count 7.9 10^3/uL (4.0-10.0)
[2021-01-25 12:01] LABS: Alanine Aminotransferase 18 U/L (0-33); Albumin Level 3.7 g/dL (3.5-5.2); Alkaline Phosphatase 76 IU/L (35-105); Anion Gap 14.3 (5-19); Aspartate Amino Transferase 22 U/L (0-32); Blood Urea Nitrogen 17 mg/dL (8-23); Calcium 8.6 mg/dL (8.5-10.5); Carbon Dioxide 22 mmol/L (22-29); Chloride 102 mmol/L (98-107); Globulin 3.2 g/dL (1.3-4.6); Glomerular Filtration Rate 55.1 mL/min (90-130); Glucose 171 mg/dL (65-115); Osmolality Calculated 284 mOsm/kg (285-295); Potassium 4.3 mmol/L (3.5-5.1); Sodium 134 mmol/L (136-145); Total Bilirubin 0.2 mg/dL (0.15-1.2); Total Protein 6.9 g/dL (6.6-8.7)
== END 2021-01-25 11:13 | disposition home or self-care (01) ==
PROVIDERS: PCP Internal Medicine; Referring Provider Internal Medicine Rheumatology; Visit Provider Internal Medicine Gastroenterology
DX: K75.4 Autoimmune hepatitis (principal)
CPT/HCPCS: 36415; 80053; 82248; 85025; 86140

== ENCOUNTER → 2021-01-27 13:01 | Outpatient (BNVA) | payer MEDICARE, SELFPAY | PROVIDERS: PCP Internal Medicine; Visit Provider Internal Medicine Rheumatology | DX: L40.50 Arthropathic psoriasis, unspecified (principal); L40.0 Psoriasis vulgaris; K75.4 Autoimmune hepatitis; K82.8 Other specified diseases of gallbladder; Z79.899 Other long term (current) drug therapy; Z71.89 Other specified counseling; Z87.891 Personal history of nicotine dependence | CPT/HCPCS: 99214 ==

== ENCOUNTER 2021-05-11 10:35 | Outpatient (CLI) | payer MEDICARE, SELFPAY ==
[2021-05-11 10:52] LABS: Basophils % 0.5 %; Eosinophils # 0.2 10^3/uL (0.0-0.8); Eosinophils % 2.9 %; Hematocrit 38.1 % (37.0-47.0); Hemoglobin 11.8 g/dL (11.5-15.3); Lymphocytes # 3.6 10^3/uL (0.8-4.8); Lymphocytes % 45.7 %; Mean Corpuscular Hemoglobin 28.1 pg (28.0-34.0); Mean Corpuscular Volume 90.7 fl (81-99); Mean Platelet Volume 8.9 fL (7.4-10.4); Monocytes # 0.5 10^3/uL (0.2-0.9); Monocytes % 6.1 %; Neutrophils # 3.52 10^3/uL (1.8-7.7); Neutrophils % 44.5 %; Nucleated Red Blood Cells % 0 %; Platelet Count 264 10^3/cmm (130-400); Red Cell Distribution Width 13.3 % (12.1-15.1); White Blood Count 7.9 10^3/uL (4.0-10.0)
[2021-05-11 11:19] LABS: Alanine Aminotransferase 10 U/L (0-33); Albumin Level 3.8 g/dL (3.5-5.2); Alkaline Phosphatase 78 IU/L (35-105); Aspartate Amino Transferase 13 U/L (0-32); Blood Urea Nitrogen 16 mg/dL (8-23); Calcium 8.4 mg/dL (8.5-10.5); Carbon Dioxide 23 mmol/L (22-29); Chloride 101 mmol/L (98-107); Globulin 2.7 g/dL (1.3-4.6); Glomerular Filtration Rate 40.7 mL/min (90-130); Glucose 163 mg/dL (65-115); Osmolality Calculated 289 mOsm/kg (285-295); Sodium 137 mmol/L (136-145); Total Bilirubin 0.2 mg/dL (0.15-1.2); Total Protein 6.5 g/dL (6.6-8.7)
== END 2021-05-11 10:36 | disposition home or self-care (01) ==
LOC: LAB 10:39
PROVIDERS: PCP Internal Medicine; Visit Provider Internal Medicine Gastroenterology
DX: K75.4 Autoimmune hepatitis (principal)
CPT/HCPCS: 80053; 85025

== ENCOUNTER → 2021-06-01 13:09 | Outpatient (BNVA) | payer MEDICARE, SELFPAY | PROVIDERS: PCP Internal Medicine; Visit Provider Internal Medicine Rheumatology | DX: L40.50 Arthropathic psoriasis, unspecified (principal); L40.0 Psoriasis vulgaris; R79.89 Other specified abnormal findings of blood chemistry; Z79.899 Other long term (current) drug therapy; K75.4 Autoimmune hepatitis; Z71.89 Other specified counseling; Z87.891 Personal history of nicotine dependence | CPT/HCPCS: 99214 ==

== ENCOUNTER 2021-09-05 14:08 | Outpatient (CLI) | payer MEDICARE, SELFPAY ==
[2021-09-05 14:34] LABS: Basophils % 0.4 %; Eosinophils # 0.3 10^3/uL (0.0-0.8); Hemoglobin 11.1 g/dL (11.5-15.3); Lymphocytes # 4.3 10^3/uL (0.8-4.8); Lymphocytes % 45.6 %; Mean Corpuscular HGB Conc 30.8 g/dL (30.0-36.0); Mean Corpuscular Hemoglobin 26.2 pg (28.0-34.0); Mean Corpuscular Volume 84.9 fl (81-99); Mean Platelet Volume 9.1 fL (7.4-10.4); Monocytes # 0.8 10^3/uL (0.2-0.9); Neutrophils # 4.02 10^3/uL (1.8-7.7); Neutrophils % 42.7 %; Nucleated Red Blood Cells % 0 %; Platelet Count 320 10^3/cmm (130-400); Red Blood Count 4.24 10^6/uL (4.1-5.3); Red Cell Distribution Width 13.2 % (12.1-15.1); White Blood Count 9.4 10^3/uL (4.0-10.0)
[2021-09-05 14:55] LABS: Alanine Aminotransferase 12 U/L (0-33); Albumin Level 4.1 g/dL (3.5-5.2); Alkaline Phosphatase 104 IU/L (35-105); Anion Gap 16.8 (5-19); Aspartate Amino Transferase 20 U/L (0-32); Blood Urea Nitrogen 13 mg/dL (8-23); Calcium 9.3 mg/dL (8.5-10.5); Carbon Dioxide 24 mmol/L (22-29); Chloride 99 mmol/L (98-107); Globulin 3.6 g/dL (1.3-4.6); Glomerular Filtration Rate 49.2 mL/min (90-130); Glucose 115 mg/dL (65-115); Osmolality Calculated 281 mOsm/kg (285-295); Potassium 4.8 mmol/L (3.5-5.1); Sodium 135 mmol/L (136-145); Total Bilirubin 0.2 mg/dL (0.15-1.2); Total Protein 7.7 g/dL (6.6-8.7)
== END 2021-09-05 14:09 | disposition home or self-care (01) ==
LOC: LAB 14:10
PROVIDERS: PCP Internal Medicine; Visit Provider Internal Medicine Gastroenterology
DX: Z01.89 Encounter for other specified special examinations (principal)
CPT/HCPCS: 36415; 80053; 85025

== ENCOUNTER → 2021-10-24 14:45 | Outpatient (BNVA) | payer MEDICARE, SELFPAY | PROVIDERS: PCP Internal Medicine; Visit Provider Internal Medicine Rheumatology | DX: L40.50 Arthropathic psoriasis, unspecified (principal); L40.0 Psoriasis vulgaris; K75.4 Autoimmune hepatitis; Z79.899 Other long term (current) drug therapy; Z71.89 Other specified counseling | CPT/HCPCS: 99214 ==

== ENCOUNTER → 2021-12-27 15:10 | Outpatient (BNVA) | payer MEDICARE, SELFPAY | PROVIDERS: PCP Internal Medicine; Visit Provider Internal Medicine | DX: R42 Dizziness and giddiness (principal); R55 Syncope and collapse; I10 Essential (primary) hypertension | CPT/HCPCS: 80053; 83550; 84443; 85025 ==

== ENCOUNTER 2022-01-17 13:00 | Inpatient (IN) | payer MEDICARE, SELFPAY ==
--- NOTE | 2022-01-17 13:16 | XRR_ITS ---
PROCEDURE INFORMATION: Exam: XR Right Foot Exam date and time: 01/17/2022 1:23 PM Age: 71 years old Clinical indication: Pain; Swelling, leg or foot; Right; Additional info: Foot pain TECHNIQUE: Imaging protocol: Radiologic exam of the Right foot. Views: 1 or 2 views. COMPARISON: CR XR foot RT min 3V* [id number] 10/22/2019 12:31 PM FINDINGS: Bones/joints: Normal. Soft tissues: Normal. XR/XR foot RT 2V [id number] IMPRESSION: No acute findings.
[2022-01-17 14:15] VITALS: BP 166/68; PULSE 75; RESP 16; TEMP 36.3; O2SAT 94; BMI 26.5
--- NOTE | 2022-01-17 14:35 | W.ED.EXTPRO ---
Documented by User: MARTHA Lee 01/18/22 07:19 HPI - Extremity Problem General: Chief complaint: Extremity Problem,Nontraumatic Stated complaint: right foot pain Time Seen by Provider: 01/17/22 14:27 Source: patient and family Mode of arrival: ambulatory Limitations: no limitations History of Present Illness: Patient is a 71-year-old female who presents to ED today after being evaluated at a walk-in clinic by Dr. Eagle and referred to the ED for evaluation/treatment of right foot cellulitis. Patient states she initially began noticing symptoms approximately a week ago. She was seen by her PCP Dr. Her who for IM Rocephin and placed her on doxycycline. Patient states she has failed to improve. She does feel like redness and swelling worsens with ambulation. Patient states she does have a history of psoriatic arthritis. She states she is immunosuppressed secondary to her autoimmune hepatitis. She denies history of gout. MD Complaint: extremity pain, extremity swelling, joint swelling and joint pain Onset (ago): day(s) Pain Consistency: constant Location: right and lower extremity (foot) Radiation: none Relieving factors: elevation Exacerbating factors: weight bearing and walking Associated symptoms: Reports no associated symptoms; Deny chest pain or fever(s) Review of Systems Const: Denies: fever(s), chills, body aches, fatigue or malaise Card: Denies: chest pain Resp: Denies: dyspnea GI: Denies: abdominal pain Musc: Reports: extremity pain, extremity swelling, joint pain, joint swelling, joint redness and joint warmth; Denies: neck pain or back pain Neuro: Denies: headache(s), numbness in extremities or sensory changes PFSH ED PFSH: Medical History Autoimmune hepatitis Depression Dysfunctional gallbladder Encounter for screening for other viral diseases Essential (primary) hypertension High risk medication use Hyperlipemia Immunization counseling Inflammatory arthritis Insomnia Peripheral neuropathy Plaque psoriasis Psoriasis Surgical History History of appendectomy History of carpal tunnel surgery History of section Family History Mother Cancer Other Aneurysm COPD (chronic obstructive pulmonary disease) Social History (Reviewed 01/17/22 @ 15:23 by MARCELLUS Lee Smoking and tobacco status: former smoker Alcohol intake: former History of recent travel: No Current gender identity: Female Physical Exam Const: COMMON NORMALS: no acute distress, patient oriented x3, no limitations, alert and well nourished GENERAL APPEARANCE: cooperative ORIENTATION/CONSCIOUSNESS: Yes awake, Yes oriented to person, Yes oriented to place and Yes oriented to time HENMT: COMMON NORMALS: atraumatic HEAD & SCALP: atraumatic Resp: COMMON NORMALS: normal respiratory effort and clear to auscultation bilaterally AUSCULTATION: clear to auscultation bilaterally Cardio: COMMON NORMALS: regular rate and regular rhythm RATE: regular rate RHYTHM: regular rhythm Extremity: COMMON NORMALS: capillary refill normal and no calf tenderness GENERAL: Yes normal exam except as noted LEFT LOWER EXTREMITY: Yes foot & digits OTHER: pt has swelling, erythema, and warmth affecting mainly the distal medial portion of her R foot and mainly focusing around the 1st MTP joint; she maintains good fairly painless ROM here; there does appear to be some fluctuance/effusion; no lymphangitic streaking; no abrasions/puncture wounds/or infection entrance points noted Neuro: COMMON NORMALS: patient oriented x3 SENSORIUM/ORIENTATION: Yes alert, Yes oriented to person, Yes oriented to place and Yes oriented to time Course Vital Signs: Vital signs: Vital Signs Temperature 98.6 F 01/18/22 04:00 Pulse Rate 82 01/18/22 04:00 Respiratory Rate 18 01/18/22 04:32 Blood Pressure 148/67 01/18/22 04:00 Pulse Oximetry 92 01/18/22 04:00 Oxygen Delivery Me thod 01/18/22 04:00 MDM - Extremity (Nontraumatic) Lab Data : 01/18/22 04:36 01/18/22 04:36 Radiology Impressions Foot X-Ray 01/17/22 13:16 IMPRESSION: No acute findings. Foot CT 01/17/22 15:19 IMPRESSION: 1. Findings suspicious for an abscess with surrounding cellulitis/soft tissue infection virtually surrounding the head of the 1st metatarsal and the sesamoid bones in the right foot. Fluid also extends proximally along the extensive pollicis longus tendon to the level of the ankle, concerning for infected tenosynovitis. 2. Lysis on the under surface of the medial sesamoid bone. Possible osteomyelitis cannot be ruled out. Further evaluation with MRI of the the right foot without and with contrast may be obtained to further evaluate for osteomyelitis and possible septic arthritis. 3. Incidental/nonacute findings are listed in the report. ADDENDUM: 01/17/22 [id number] THIS REPORT CONTAINS FINDINGS THAT MAY BE CRITICAL TO PATIENT CARE. The findings were verbally communicated via telephone conference with MARTHA Waldron at 6:54 PM CDT on 01/17/2022. The findings were acknowledged and understood. Laboratory Results WBC 8.4 10^3/uL (4.0-10.0) 01/17/22 15:12 RBC 3.19 10^6/uL (4.1-5.3) L 01/17/22 15:12 Hgb 9.2 g/dL (11.5-15.3) L 01/17/22 15:12 Hct 28.5 % (37.0-47.0) L 01/17/22 15:12 MCV 89.3 fl (81-99) 01/17/22 15:12 MCH 28.8 pg (28.0-34.0) 01/17/22 15:12 MCHC 32.3 g/dL (30.0-36.0) 01/17/22 15:12 RDW 14.8 % (12.1-15.1) 01/17/22 15:12 Plt Count 437 10^3/cmm (130-400) H 01/17/22 15:12 MPV 9.5 fL (7.4-10.4) 01/17/22 15:12 Neut % (Auto) 60.1 % 01/17/22 15:12 Lymph % (Auto) 30.5 % 01/17/22 15:12 [place] % (Auto) 7.3 % 01/17/22 15:12 Eos % (Auto) 0.8 % 01/17/22 15:12 Baso % (Auto) 0.2 % 01/17/22 15:12 Neut # (Auto) 5.02 10^3/uL (1.8-7.7) 01/17/22 15:12 Lymph # (Auto) 2.6 10^3/uL (0.8-4.8) 01/17/22 15:12 [place] # (Auto) 0.6 10^3/uL (0.2-0.9) 01/17/22 15:12 Eos # (Auto) 0.1 10^3/uL (0.0-0.8) 01/17/22 15:12 Baso # (Auto) 0.0 10^3/uL (0.0-0.1) 01/17/22 15:12 Nucleated RBC % (auto) 0 % 01/17/22 15:12 Nucleated RBCs # 0.0 /100WBC 01/17/22 15:12 ESR 27 mm/hr (0-15) H 01/17/22 15:12 Sodium 130 mmol/L (136-145) L 01/17/22 15:12 Potassium 4.1 mmol/L (3.5-5.1) 01/17/22 15:12 Chloride 93 mmol/L (98-107) L 01/17/22 15:12 Carbon Dioxide 24 mmol/L (22-29) 01/17/22 15:12 Anion Gap 17.1 (5-19) 01/17/22 15:12 BUN 17 mg/dL (8-23) 01/17/22 15:12 Creatinine 1.2 mg/dL (0.5-0.9) H 01/17/22 15:12 GFR Calculation 44.5 mL/min (90-130) L 01/17/22 15:12 Glucose 111 mg/dL (65-115) 01/17/22 15:12 Estimat Average Glucose 120 01/17/22 15:12 Hemoglobin A1c 5.8 % (4.0-6.0) 01/17/22 15:12 Calculated Osmolality 272 mOsm/kg (285-295) L 01/17/22 15:12 Uric Acid 8.5 mg/dL (2.4-5.7) H 01/17/22 15:12 Calcium 9.4 mg/dL (8.5-10.5) 01/17/22 15:12 Total Bilirubin 0.3 mg/dL (0.15-1.2) 01/17/22 15:12 AST 32 U/L (0-32) 01/17/22 15:12 ALT 23 U/L (0-33) 01/17/22 15:12 Alkaline Phosphatase 88 IU/L (35-105) 01/17/22 15:12 C-Reactive Protein 79.7 mg/L (0.0-4.9) H 01/17/22 15:12 Total Protein 7.5 g/dL (6.6-8.7) 01/17/22 15:12 Albumin 3.5 g/dL (3.5-5.2) 01/17/22 15:12 Globulin 4.0 g/dL (1.3-4.6) 01/17/22 15:12 Discharge Plan Discharge Patient Disposition: Admitted As Inpatient Admit Provider: Kia Rodriguez Clinical Impression: Abscess of right foot Condition: Stable Sign Out Sign Out Data: Patient Sign Out occurred on 01/17/22 at 17:13. Patient's care was discussed, and care was transferred from to MARTHA Carr. Coding Level of Care Code ED Wood Science Professor for Chg Fwd Exam Detailed Documented by User: MARTHA Carr 01/17/22 20:48 HPI - Extremity Problem General: Chief complaint: Extremity Problem,Nontraumatic Stated complaint: right foot pain Time Seen by Provider: 01/17/22 14:27 PFSH ED PFSH: Medical History Autoimmune hepatitis Depression Dysfunctional gallbladder Encounter for screening for other viral diseases Essential (primary) hypertension High risk medication use Hyperlipemia Immunization counseling Inflammatory arthritis Insomnia Peripheral neuropathy Plaque psoriasis Psoriasis Surgical History History of appendectomy History of carpal tunnel surgery History of section Family History Mother Cancer Other Aneurysm COPD (chronic obstructive pulmonary disease) Social History Smoking and tobacco status: former smoker Alcohol intake: former History of recent travel: No Current gender identity: Female Course Consultations: Consultation #1: I contacted Dr. Begum and told about patient case and CT right foot findings of an abscess and also some signs of osteomyelitis of the medial sesamoid bone. He recommended having patient admitted and he will take her to the OR to drain abscess in the morning. Time: 18:55 Consultation #2: I contacted the hospitalist, spoke with them about patient case and that Dr. Begum wants patient admitted and patient will be taken to the OR tomorrow to have abscess and right foot drain. She accepted admission of patient. Time: 19:10 Vital Signs: Vital signs: Vital Signs Temperature 98.6 F 01/18/22 04:00 Pulse Rate 82 01/18/22 04:00 Respiratory Rate 18 01/18/22 04:32 Blood Pressure 148/67 01/18/22 04:00 Pulse Oximetry 92 01/18/22 04:00 Oxygen Delivery Me thod 01/18/22 04:00 MDM - Extremity (Nontraumatic) Medical Decision Making Patient is a 71-year-old female who comes to the ED with right foot pain and swelling. She was seen by her primary care doctor back on 01/11/2022 and diagnosed with cellulitis and put on antibiotic. Symptoms have not improved and she filled out patient antibiotic treatment. She was sent over here to the ED by Dr. Eagle for further evaluation and a CT of her right foot. White blood cell count was 8.4 CRP was 79.7 and ESR was 27. CT of right foot showed an abscess with surrounding cellulitis of the head of first metatarsal and sesamoid bones of right foot. Concern for infected tenosynovitis along with possible osteomyelitis of medial sesamoid bone. I contacted Dr. Begum and he recommended having patient admitted to hospitalist and he will see patient in the OR tomorrow to have abscess drained. I contacted the admitting hospitalist and told her about patient case and they agreed to have patient admitted. Patient was given IV Vanco while here in the ED. Dr. Cabral placed the admitting orders. Lab Data I reviewed the patient's lab results. : 01/18/22 04:36 01/18/22 04:36 Radiology Impressions Foot X-Ray 01/17/22 13:16 IMPRESSION: No acute findings. Foot CT 01/17/22 15:19 IMPRESSION: 1. Findings suspicious for an abscess with surrounding cellulitis/soft tissue infection virtually surrounding the head of the 1st metatarsal and the sesamoid bones in the right foot. Fluid also extends proximally along the extensive pollicis longus tendon to the level of the ankle, concerning for infected tenosynovitis. 2. Lysis on the under surface of the medial sesamoid bone. Possible osteomyelitis cannot be ruled out. Further evaluation with MRI of the the right foot without and with contrast may be obtained to further evaluate for osteomyelitis and possible septic arthritis. 3. Incidental/nonacute findings are listed in the report. ADDENDUM: 01/17/22 [id number] THIS REPORT CONTAINS FINDINGS THAT MAY BE CRITICAL TO PATIENT CARE. The findings were verbally communicated via telephone conference with MARTHA Waldron at 6:54 PM CDT on 01/17/2022. The findings were acknowledged and understood. Laboratory Results WBC 8.4 10^3/uL (4.0-10.0) 01/17/22 15:12 RBC 3.19 10^6/uL (4.1-5.3) L 01/17/22 15:12 Hgb 9.2 g/dL (11.5-15.3) L 01/17/22 15:12 Hct 28.5 % (37.0-47.0) L 01/17/22 15:12 MCV 89.3 fl (81-99) 01/17/22 15:12 MCH 28.8 pg (28.0-34.0) 01/17/22 15:12 MCHC 32.3 g/dL (30.0-36.0) 01/17/22 15:12 RDW 14.8 % (12.1-15.1) 01/17/22 15:12 Plt Count 437 10^3/cmm (130-400) H 01/17/22 15:12 MPV 9.5 fL (7.4-10.4) 01/17/22 15:12 Neut % (Auto) 60.1 % 01/17/22 15:12 Lymph % (Auto) 30.5 % 01/17/22 15:12 [place] % (Auto) 7.3 % 01/17/22 15:12 Eos % (Auto) 0.8 % 01/17/22 15:12 Baso % (Auto) 0.2 % 01/17/22 15:12 Neut # (Auto) 5.02 10^3/uL (1.8-7.7) 01/17/22 15:12 Lymph # (Auto) 2.6 10^3/uL (0.8-4.8) 01/17/22 15:12 [place] # (Auto) 0.6 10^3/uL (0.2-0.9) 01/17/22 15:12 Eos # (Auto) 0.1 10^3/uL (0.0-0.8) 01/17/22 15:12 Baso # (Auto) 0.0 10^3/uL (0.0-0.1) 01/17/22 15:12 Nucleated RBC % (auto) 0 % 01/17/22 15:12 Nucleated RBCs # 0.0 /100WBC 01/17/22 15:12 ESR 27 mm/hr (0-15) H 01/17/22 15:12 Sodium 130 mmol/L (136-145) L 01/17/22 15:12 Potassium 4.1 mmol/L (3.5-5.1) 01/17/22 15:12 Chloride 93 mmol/L (98-107) L 01/17/22 15:12 Carbon Dioxide 24 mmol/L (22-29) 01/17/22 15:12 Anion Gap 17.1 (5-19) 01/17/22 15:12 BUN 17 mg/dL (8-23) 01/17/22 15:12 Creatinine 1.2 mg/dL (0.5-0.9) H 01/17/22 15:12 GFR Calculation 44.5 mL/min (90-130) L 01/17/22 15:12 Glucose 111 mg/dL (65-115) 01/17/22 15:12 Estimat Average Glucose 120 01/17/22 15:12 Hemoglobin A1c 5.8 % (4.0-6.0) 01/17/22 15:12 Calculated Osmolality 272 mOsm/kg (285-295) L 01/17/22 15:12 Uric Acid 8.5 mg/dL (2.4-5.7) H 01/17/22 15:12 Calcium 9.4 mg/dL (8.5-10.5) 01/17/22 15:12 Total Bilirubin 0.3 mg/dL (0.15-1.2) 01/17/22 15:12 AST 32 U/L (0-32) 01/17/22 15:12 ALT 23 U/L (0-33) 01/17/22 15:12 Alkaline Phosphatase 88 IU/L (35-105) 01/17/22 15:12 C-Reactive Protein 79.7 mg/L (0.0-4.9) H 01/17/22 15:12 Total Protein 7.5 g/dL (6.6-8.7) 01/17/22 15:12 Albumin 3.5 g/dL (3.5-5.2) 01/17/22 15:12 Globulin 4.0 g/dL (1.3-4.6) 01/17/22 15:12 Discharge Plan Discharge Patient Disposition: Admitted As Inpatient Admit Provider: Kia Rodriguez Clinical Impression: Abscess of right foot Condition: Stable Sign Out Sign Out Data: Patient Sign Out occurred on 01/17/22 at 17:13. Patient's care was discussed, and care was transferred from to MARTHA Carr. Coding Level of Care Code ED Wood Science Professor for Yasemin Fwd Exam Detailed
--- NOTE | 2022-01-17 15:19 | CTR_ITS ---
PROCEDURE INFORMATION: Exam: CT Right Lower Extremity With Contrast, Foot Exam date and time: 01/17/2022 5:41 PM Age: 71 years old Clinical indication: Pain; Cellulitis and swelling, leg or foot; Right; Additional info: Cellulitis; Fluctuance at 1st mtp joint TECHNIQUE: Imaging protocol: CT of the Right lower extremity with intravenous contrast was performed. Exam focused on the foot. Sagittal and coronal reformatted images were created and reviewed. Radiation optimization: All CT scans at this facility use at least one of these dose optimization techniques: automated exposure control; mA and/or kV adjustment per patient size (includes targeted exams where dose is matched to clinical indication); or iterative reconstruction. Contrast material: OMNIPAQUE 350; Contrast volume: 90 ml; Contrast route: INTRAVENOUS (IV); COMPARISON: CR XR foot RT 2V [id number] 01/17/2022 1:23 PM RADIATION DOSE METRICS: Total DLP (mGy-cm): 197.91 FINDINGS: Bones/joints: Small plantar calcaneal bone spur. No acute fracture. No dislocation. Normal bone mineralization. No joint effusion. Rim enhancing fluid collection virtually surrounding the head of the 1st metatarsal and the sesamoid bones in the right foot, this measures 1.8 x 3.8 x 3.1 cm (series 7, image 5 and series 3, image 141). Findings are suspicious for an abscess. Fluid also extends proximally along the extensive pollicis longus tendon to the level of the ankle, concerning for infected tenosynovitis. Lysis on the under surface of the medial sesamoid bone (series 7, image 8). Possible osteomyelitis cannot be ruled out. Soft tissues: Small calcified enthesophyte at the Achilles tendon insertion. Marked subcutaneous/soft tissue inflammation around the distal 1st metatarsal extending distally to the proximal 1st toe. No radiopaque foreign body. CT/CT foot RT w con [id number] IMPRESSION: 1. Findings suspicious for an abscess with surrounding cellulitis/soft tissue infection virtually surrounding the head of the 1st metatarsal and the sesamoid bones in the right foot. Fluid also extends proximally along the extensive pollicis longus tendon to the level of the ankle, concerning for infected tenosynovitis. 2. Lysis on the under surface of the medial sesamoid bone. Possible osteomyelitis cannot be ruled out. Further evaluation with MRI of the the right foot without and with contrast may be obtained to further evaluate for osteomyelitis and possible septic arthritis. 3. Incidental/nonacute findings are listed in the report.
[2022-01-17 15:28] LABS: Basophils % 0.2 %; Eosinophils # 0.1 10^3/uL (0.0-0.8); Eosinophils % 0.8 %; Hematocrit 28.5 % (37.0-47.0); Hemoglobin 9.2 g/dL (11.5-15.3); Lymphocytes # 2.6 10^3/uL (0.8-4.8); Lymphocytes % 30.5 %; Mean Corpuscular HGB Conc 32.3 g/dL (30.0-36.0); Mean Corpuscular Hemoglobin 28.8 pg (28.0-34.0); Mean Corpuscular Volume 89.3 fl (81-99); Mean Platelet Volume 9.5 fL (7.4-10.4); Monocytes # 0.6 10^3/uL (0.2-0.9); Monocytes % 7.3 %; Neutrophils # 5.02 10^3/uL (1.8-7.7); Neutrophils % 60.1 %; Nucleated Red Blood Cells % 0 %; Platelet Count 437 10^3/cmm (130-400); Red Blood Count 3.19 10^6/uL (4.1-5.3); Red Cell Distribution Width 14.8 % (12.1-15.1); White Blood Count 8.4 10^3/uL (4.0-10.0)
[2022-01-17 15:33] LABS: Erythrocyte Sedimentation Rate 27 mm/hr (0-15)
[2022-01-17 15:48] LABS: Alanine Aminotransferase 23 U/L (0-33); Albumin Level 3.5 g/dL (3.5-5.2); Alkaline Phosphatase 88 IU/L (35-105); Anion Gap 17.1 (5-19); Aspartate Amino Transferase 32 U/L (0-32); Blood Urea Nitrogen 17 mg/dL (8-23); C Reactive Protein 79.7 mg/L (0.0-4.9); Calcium 9.4 mg/dL (8.5-10.5); Carbon Dioxide 24 mmol/L (22-29); Chloride 93 mmol/L (98-107); Glomerular Filtration Rate 44.5 mL/min (90-130); Glucose 111 mg/dL (65-115); Osmolality Calculated 272 mOsm/kg (285-295); Potassium 4.1 mmol/L (3.5-5.1); Sodium 130 mmol/L (136-145); Total Bilirubin 0.3 mg/dL (0.15-1.2); Total Protein 7.5 g/dL (6.6-8.7); Uric Acid 8.5 mg/dL (2.4-5.7)
[2022-01-17] MEDS: vancomycin 1,000 MG in sodium chloride 0.9% 250 ML 250 MG IV (16:11)
[2022-01-17] MEDS: sodium chloride 0.9% 500 ML 999 ML IV (18:13)
--- NOTE | 2022-01-17 19:45 | P.CONIM_ITS ---
Providers/Reason For Consult Consulting Physician/Specialty*: Dc Begum D.P.M. Reason for Consult*: Podiatry Primary Care Provider: Carlos Manuel Her MD History of Present Illness History of Present Illness Usman Hilliard is a 71 year old female presents to the emergency department with red hot swollen right first metatarsal phalangeal joint that started last week. She was seen by primary care on 01/11/2022 for this as well was given 1 g of intramuscular ceftriaxone and sent home with oral doxycycline 100 mg twice daily for 7 days. Over the weekend she endorsed a episode of fevers and chills. Went to urgent care today and was directed to the emergency department. Patient denies history of gout. History of autoimmune hepatitis. Low-dose prednisone 2.5 mg daily. Also has psoriasis. Is accompanied by her granddaughter. Medications/Allergies Home Medications Medication Instructions Recorded Confirmed Last Taken Type oxycodone 10 mg tablet 10 mg PO QID PRN 07/28/20 01/17/22 Unknown History amlodipine 2.5 mg tablet 2.5 mg PO DAILY #90 tabs 11/18/20 01/17/22 Unknown Rx amitriptyline 25 mg tablet 25 mg PO .hs 01/27/21 01/17/22 Unknown History prednisone 2.5 mg tablet 2.5 mg PO DAILY 01/27/21 01/17/22 Unknown History linaclotide 290 mcg capsule 290 mcg PO DAILY #30 caps 09/07/21 01/17/22 Unknown Rx (Linzess) tofacitinib 5 mg tablet (Xeljanz) 5 mg PO BID #60 tabs 11/29/21 01/17/22 Unknown Rx doxycycline hyclate 100 mg capsule 100 mg PO BID #14 caps 01/11/22 01/17/22 Unknown Rx ondansetron HCl 4 mg tablet 4 mg PO TID PRN nausea and 01/13/22 01/17/22 Unknown Rx vomiting #20 tabs Allergies Allergy/AdvReac Type Severity Reaction Status Date / Time codeine Allergy Mild Unknown Verified 01/17/22 12:18 isosorbide Allergy Mild Unknown Verified 01/17/22 12:18 lidocaine [From Lidoderm] Allergy Mild Unknown Verified 01/17/22 12:18 methadone Allergy Mild Unknown Verified 01/17/22 12:18 leflunomide AdvReac Mild nausea and Verified 01/17/22 12:18 vomiting azathioprine [From Imuran] AdvReac Unknown ADR-Vomitin Verified 01/17/22 12:18 g PFSH Acute PFSH: Medical History Autoimmune hepatitis Depression Dysfunctional gallbladder Encounter for screening for other viral diseases Essential (primary) hypertension High risk medication use Hyperlipemia Immunization counseling Inflammatory arthritis Insomnia Peripheral neuropathy Plaque psoriasis Psoriasis Surgical History History of appendectomy History of carpal tunnel surgery History of section Family History Mother Cancer Other Aneurysm COPD (chronic obstructive pulmonary disease) Social History Smoking and tobacco status: former smoker Alcohol intake: former History of recent travel: No Current gender identity: Female Vitals/I&O/Wt Last Vital Signs Temp 97.4 F L 01/17/22 14:15 Pulse 75 01/17/22 14:15 Resp 16 01/17/22 14:15 BP 166/68 01/17/22 14:15 Pulse Ox 94 01/17/22 14:15 O2 Del Method 01/17/22 14:15 Weight last 48 hrs Weight 145 lb Physical Exam Narrative: GENERAL: Patient is alert and oriented ?3 and in no acute distress. The following is a focused right lower extremity exam. Accompanied by her granddaughter bedside. VASCULAR: Dorsalis pedis palpable. Posterior tibial arteries palpable. Cap illary refill time less than 3 seconds to the distal hallux bilaterally. Calf is supple and nontender proximally and distally. Decreased pedal hair growth bilaterally. Edema to the right medial forefoot. NEUROLOGICAL: Protective sensation intact to light touch. DERMATOLOGICAL: Erythema with streaking to the midfoot medially from the first metatarsal phalangeal joint. No open wound. No crepitus with soft tissue palpation. Warmth at the first metatarsal phalangeal joint, right foot. MUSCULOSKELETAL: Tenderness to palpation right first metatarsal phalangeal joint, mild tenderness with range of motion, no crepitus. Data : 01/17/22 15:12 01/17/22 15:12 Micro: Microbiology 01/17/22 15:17 Blood Culture - Preliminary Blood SPECIMEN COLLECTED 01/17/22 15:12 Blood Culture - Preliminary Blood SPECIMEN COLLECTED A&P Assessment and plan (1) Right foot pain: Status: Acute (2) Cellulitis of right foot: Status: Acute Plan 71-year-old female presents with a red hot swollen right first metatarsal phalangeal joint over 1 week in duration, outpatient received 1 g of Rocephin and 7 days of doxycycline 100 mg twice daily with minimal improvement. Had an episode of fevers and chills over the weekend. At emergency department she is afebrile, no leukocytosis, ESR 27 and CRP 79.7 mg/L. No acute findings on x-ray right foot [address] scan of the right foot is suspicious for abscess with cellulitis surrounding the first metatarsal phalangeal joint and sesamoids with fluid tracking along the extensor houses longus tendon to the level of the ankle. She has erosive changes to the medial portion of the tibial sesamoid, osteomyelitis cannot be ruled out with CT. -Will follow-up imaging with MRI with and without contrast to rule out acute osteomyelitis and further evaluate for abscess collection. -Joint aspiration performed, right first metatarsal phalangeal joint -Patient getting admitted will start with antibiotics empirically -Will await imaging and potentially lab work-up for gout prior to surgical intervention. After obtaining verbal and written consent the right first metatarsophalangeal joint was scrubbed with chlorhexidine and 18-gauge needle utilized for joint aspiration total of 2.5 cc of serosanguineous fluid was collected and sent to laboratory. Ordered joint aspiration pathology to rule out gout/crystals, specimen also sent for microbiology for gram stain, culture and sensitivity. Consult Attestations Medical Necessity Statement: Cellulitis right lower extremity. Coding Level of Care Code Acute Nut Roaster Helper for [facility] Fw Diagnoses Right foot pain M79.671 Cellulitis of right foot L03.115
--- NOTE | 2022-01-17 19:56 | PM.HP ---
Providers/Chief Complaint Primary Care Provider: Carlos Manuel Her MD Chief Complaint: right foot pain History of Present Illness Usman Hilliard is a 71 year old female with history of autoimmune hepatitis, depression, hypertension, hyperlipidemia, psoriasis presented to the ER today after being sent from wound care clinic by Dr. Eagle for right foot cellulitis. She started noticing symptoms about a week ago and she was seen by her primary care doctor who ordered intramuscular Rocephin and placed on doxycycline. Patient did not improve and the redness and swelling has been worsening with ambulation. Patient denies a history of gout. She has 1 day left from her outpatient antibiotic. There is swelling and edema around the area as well. Patient follows with Dr. Ellington for rheumatology. Please see last note by rn peritoneal dialysis dated 10/24/2021 for rheumatological work-up and medications. ER course: On arrival BP 166/68, respiratory 16, pulse 75, temperature 97.4, pulse ox 94%. Foot CT was done which showed findings suspicious for abscess with surrounding cellulitis/soft tissue infection virtually surrounding head of first metatarsal and Sessa Gates bones in the right foot. Fluid also extends proximally along extensor pollicis longus tendon to the level of ankle concerning for infective tenosynovitis. Lysis on undersurface of medial sesamoid bone. Possible osteomyelitis cannot be ruled out. Further evaluation with MRI of the right foot without and with contrast may be obtained to further evaluate for osteomyelitis and possible septic arthritis. ER doctor spoke to Dr. Begum from podiatry who will take patient to the OR in a.m. for debridement. We will start empiric antibiotics. Dr. Begum evaluated patient in ER. He aspirated fluid from MTP joint to send for cytology and culture and crystals. He has a suspicion for gout. MRI has been ordered which will be done at 4 AM. Medications/Allergies Home Medications Medication Instructions Recorded Confirmed Last Taken Type oxycodone 10 mg tablet 10 mg PO QID PRN 07/28/20 01/17/22 Unknown History amlodipine 2.5 mg tablet 2.5 mg PO DAILY #90 tabs 11/18/20 01/17/22 Unknown Rx amitriptyline 25 mg tablet 25 mg PO .hs 01/27/21 01/17/22 Unknown History prednisone 2.5 mg tablet 2.5 mg PO DAILY 01/27/21 01/17/22 Unknown History linaclotide 290 mcg capsule 290 mcg PO DAILY #30 caps 09/07/21 01/17/22 Unknown Rx (Linzess) tofacitinib 5 mg tablet (Xeljanz) 5 mg PO BID #60 tabs 11/29/21 01/17/22 Unknown Rx doxycycline hyclate 100 mg capsule 100 mg PO BID #14 caps 01/11/22 01/17/22 Unknown Rx ondansetron HCl 4 mg tablet 4 mg PO TID PRN nausea and 01/13/22 01/17/22 Unknown Rx vomiting #20 tabs Allergies Allergy/AdvReac Type Severity Reaction Status Date / Time codeine Allergy Mild Unknown Verified 01/17/22 12:18 isosorbide Allergy Mild Unknown Verified 01/17/22 12:18 lidocaine [From Lidoderm] Allergy Mild Unknown Verified 01/17/22 12:18 methadone Allergy Mild Unknown Verified 01/17/22 12:18 leflunomide AdvReac Mild nausea and Verified 01/17/22 12:18 vomiting azathioprine [From Imuran] AdvReac Unknown ADR-Vomitin Verified 01/17/22 12:18 g PFSH Acute PFSH: Medical History Autoimmune hepatitis Depression Dysfunctional gallbladder Encounter for screening for other viral diseases Essential (primary) hypertension High risk medication use Hyperlipemia Immunization counseling Inflammatory arthritis Insomnia Peripheral neuropathy Plaque psoriasis Psoriasis Surgical History History of appendectomy History of carpal tunnel surgery History of section Family History Mother Cancer Other Aneurysm COPD (chronic obstructive pulmonary disease) Social History Smoking and tobacco status: former smoker Alcohol intake: former History of recent travel: No Current gender identity: Female Vitals/I&O/Wt Last Vital Signs Temp 97.4 F L 01/17/22 14:15 Pulse 75 01/17/22 14:15 Resp 16 01/17/22 14:15 BP 166/68 01/17/22 14:15 Pulse Ox 94 01/17/22 14:15 O2 Del Method 01/17/22 14:15 Weight last 48 hrs Weight 65.771 kg Physical Exam Narrative: General: Alert oriented x3, patient seen sitting up in bed appearing comfortable at this time HEENT: Normocephalic, atraumatic, EOMI, breathing normally without any acute distress. Cardio: Regular rate rhythm, normal S1-S2, Respiratory: Clear to auscultation bilaterally no wheezes no rhonchi GI: Abdomen soft, nontender, nondistended, bow swelling, erythema, warmth affecting distal medial portion of right foot around first MTP joint. Unrestricted range of motion, no pain elicited with movement. Some fluctuance noted around first MTP joint, no puncture wounds identified on examination Data : 01/17/22 15:12 01/17/22 15:12 Micro: Microbiology 01/17/22 15:17 Blood Culture - Preliminary Blood SPECIMEN COLLECTED 01/17/22 15:12 Blood Culture - Preliminary Blood SPECIMEN COLLECTED A&P Assessment and plan (1) Abscess of right foot: Status: Acute (2) Cellulitis of foot, right: Status: Acute (3) Essential (primary) hypertension: Status: Acute (4) Hyperlipemia: Status: Acute (5) Depression: Status: Acute Plan #Right Foot Cellulitis with Tenosynovitis, osteomyelitis not ruled out #History of autoimmune hepatitis, depression, hypertension, hyperlipidemia, psoriasis #Chronic kidney disease, baseline creatinine 1.1 ? ESR pending, CRP elevated, uric acid elevated. Denies history of gout ? CT foot shows findings suspicious for abscess, tenosynovitis, osteomyelitis cannot be ruled out ? We will check foot MRI with and without contrast ? Started on normal saline 100 cc/h ? N.p.o. at midnight ? Podiatry consulted. Fluid aspirated from MTP joint for evaluation of cytology culture, crystals. ? Decision for our department after results of fluid and MRI. Dr. Begum on board and following. -Continue patient's amitriptyline, amlodipine, prednisone 2.5 twice daily, tofacitinib and linaclotide. Some rheumatological medications are unavailable which patient will have to bring from home. -Patient's daughter updated at bedside. Full code DVT prophylaxis: Heparin subcu. We will hold morning dose. Attestations Medical Necessity Statement*: Expected to cross greater than 2 midnights for management of right foot cellulitis tenosynovitis and Osteomyelitis. Patient will go for debridement in OR in a.m. 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
--- NOTE | 2022-01-17 20:32 | PC.PHAR ---
Vancomycin is dosed at 1gm IVPB every 24 hours to produce a predicted trough level of 13.20 (population based pharmacokinetic analysis). A trough level has been ordered from the lab to be obtained before the fourth dose to confirm and adjust if needed. The Zosyn is dosed at 3.375gm IVPB every 8 hours on the basis of the creatinine clearance of 39.37
[2022-01-17 20:42] LABS: Estmated Average Glucose 120; Hemoglobin A1C 5.8 % (4.0-6.0)
--- NOTE | 2022-01-17 23:02 | MR_ITS ---
WS: [id number] MRI RIGHT FOOT with and without CONTRAST. COMPARISON: 01/17/2022 Multiplanar, multisequence imaging is performed with and without contrast. Sagittal and axial T1 fat sat sequences post-MultiHance 15 cc IV. The bursa surrounding the first metatarsal head is markedly distended with fluid with mild peripheral enhancement on the postcontrast sequences. Marked soft tissue thickening surrounds the extensor barraza ucis longus and brevis tendons and there is also edema and fluid extending to the abductor hallucis a nd flexor hallucis tendons. There is more significant edema displacing the abductor hallucis tendon w ith edema around the tendon sheath. Significant enhancement along the tendon sheath consistent with t enosynovitis. There is loss of the normal low signal cortex along the plantar surface of the first me tatarsal neck and head highly suspicious for osteomyelitis. There is increased T2 signal within the m edial sesamoid associated with the first metatarsal head but there is no enhancement. There are small erosions along the medial and lateral first metatarsal head. There is narrowing of th e first metatarsophalangeal joint. The remaining metatarsal heads are normal signal. Distal Achilles tendon is normal. There is a large amount of soft tissue edema throughout the foot but greatest along the medial foot e xtending from the tarsal bones to the distal first toe. MR/MR foot RT wo/w con [id number] IMPRESSION: 1. Marked bursal distention surrounding the first metatarsal head with periphe ral enhancement. Differential includes bursitis and septic joint. 2. Additional significant soft tissue enhancement involving the tendons surrou nding the first metatarsal and toe. 3. Suspect tenosynovitis and possible abscess development within the extensor hallucis tendon. 4. Loss of the normal cortex along the plantar surface first metatarsal neck w ith abnormal adjacent soft tissue enhancement. Highly suspicious for superficia l osteomyelitis.
[2022-01-17 23:10] VITALS: BP 158/68; PULSE 79; RESP 19; TEMP 36.9; O2SAT 100
[2022-01-17 23:16] VITALS: BP 158/68; PULSE 79; RESP 19; TEMP 36.9; O2SAT 100
[2022-01-18] VITALS (13 sets, daily range): BP systolic 123–155; BP diastolic 61–73; PULSE 70–84; RESP 12–20; TEMP 36.8–37.2; O2SAT 92–100; BMI 130.0
[2022-01-18] MEDS: oxyCODONE 5 mg IR Tab/Cap 10 MG PO ×2 (00:17→09:01)
[2022-01-18] MEDS: amitriptyline 25 mg Tablet PO ×2 (00:17→22:06)
[2022-01-18] MEDS: sodium chloride 0.9% 1,000 ML 100 ML IV ×2 (00:19→11:31)
[2022-01-18] MEDS: heparin 5,000 unit/mL INJ 1 mL 5000 UNIT SUBCUT ×2 (00:20→11:32)
[2022-01-18] MEDS: piperacillin-tazobactam 3.375 GM in sodium chloride 0.9% (plus) 50 ML IV ×4 (00:20→23:18)
[2022-01-18] MEDS: ondansetron 2 mg/ML SDV 2 mL 4 MG IVP (02:41)
[2022-01-18] MEDS: morphine 4 mg/mL SDV 1 mL 2 MG IVP ×3 (04:32→18:08)
[2022-01-18 05:38] LABS: Basophils % 0.3 %; Eosinophils # 0.1 10^3/uL (0.0-0.8); Eosinophils % 1.1 %; Hemoglobin 8.6 g/dL (11.5-15.3); Lymphocytes # 1.7 10^3/uL (0.8-4.8); Lymphocytes % 27.3 %; Mean Corpuscular HGB Conc 31.9 g/dL (30.0-36.0); Mean Corpuscular Hemoglobin 28.7 pg (28.0-34.0); Mean Platelet Volume 9.6 fL (7.4-10.4); Monocytes # 0.6 10^3/uL (0.2-0.9); Monocytes % 9.2 %; Neutrophils # 3.77 10^3/uL (1.8-7.7); Nucleated Red Blood Cells % 0 %; Platelet Count 447 10^3/cmm (130-400); Red Cell Distribution Width 15.2 % (12.1-15.1); White Blood Count 6.2 10^3/uL (4.0-10.0)
[2022-01-18 06:08] LABS: Alanine Aminotransferase 19 U/L (0-33); Alkaline Phosphatase 73 IU/L (35-105); Anion Gap 14.8 (5-19); Aspartate Amino Transferase 25 U/L (0-32); Blood Urea Nitrogen 13 mg/dL (8-23); Calcium 8.6 mg/dL (8.5-10.5); Carbon Dioxide 24 mmol/L (22-29); Chloride 102 mmol/L (98-107); Globulin 3.4 g/dL (1.3-4.6); Glomerular Filtration Rate 49.2 mL/min (90-130); Glucose 84 mg/dL (65-115); Osmolality Calculated 281 mOsm/kg (285-295); Potassium 4.8 mmol/L (3.5-5.1); Sodium 136 mmol/L (136-145); Total Bilirubin 0.2 mg/dL (0.15-1.2); Total Protein 6.4 g/dL (6.6-8.7)
[2022-01-18] MEDS: gadobenate dimeglumine 5 mL vial IV (06:36)
--- NOTE | 2022-01-18 07:26 | P.PN_ITS ---
Subjective Subjective: Patient seen bedside, denies any acute events overnight. Endorses pain to the right foot. Patient denies any subjective nausea, vomiting, fever, chills, shortness of breath or chest pain. Requesting pain medication to mirror her baseline at home pain medication. Vitals/I&O/Wt Last Vital Signs Temp 98.6 F 01/18/22 04:00 Pulse 82 01/18/22 04:00 Resp 18 01/18/22 04:32 BP 148/67 01/18/22 04:00 Pulse Ox 92 01/18/22 04:00 O2 Del Method 01/18/22 04:00 01/17/22 01/18/22 01/18/22 22:59 06:59 14:59 Intake Total 50 / 50 Balance 50 / 50 Weight last 48 hrs Weight 145 lb Weight 145 lb Physical Exam Narrative: ?Patient is alert and oriented ?3 and in no acute distress.? The following is a focused right lower extremity exam.? Accompanied by her granddaughter bedside. VASCULAR: Dorsalis pedis palpable.? Posterior tibial arteries palpable.? Capillary refill time less than 3 seconds to the distal hallux bilaterally. Calf is supple and nontender proximally and distally.? Decreased pedal hair growth bilaterally.? Edema to the right medial forefoot. NEUROLOGICAL: Protective sensation intact to light touch. DERMATOLOGICAL: Erythema with streaking to the midfoot medially from the first metatarsal phalangeal joint.? No open wound.? No crepitus with soft tissue palpation.? Warmth at the first metatarsal phalangeal joint, right foot. MUSCULOSKELETAL: Tenderness to palpation right first metatarsal phalangeal joint, mild tenderness with range of motion, no crepitus. Data : 01/18/22 04:36 01/18/22 04:36 Micro: Microbiology 01/17/22 15:17 Blood Culture - Preliminary Blood SPECIMEN COLLECTED 01/17/22 15:12 Blood Culture - Preliminary Blood SPECIMEN COLLECTED A&P Assessment and plan (1) Cellulitis of foot, right: Status: Acute (2) Right foot pain: Status: Acute Plan 71-year-old female presents with a red hot swollen right first metatarsal phalangeal joint over 1 week in duration, outpatient received 1 g of Rocephin and 7 days of doxycycline 100 mg twice daily with minimal improvement.? Had an episode of fevers and chills over the weekend.? At emergency department she is afebrile, no leukocytosis, ESR 27 and CRP 79.7 mg/L.? No acute findings on x-ray right foot [address] scan of the right foot is suspicious for abscess with cellulitis surrounding the first metatarsal phalangeal joint and sesamoids with fluid tracking along the extensor houses longus tendon to the level of the ankle.? She has erosive changes to the medial portion of the tibial sesamoid, osteomyelitis cannot be ruled out with CT. -MRI report pending this a.m. -Joint aspiration performed, right first metatarsal phalangeal joint, fluid analysis pending. -Empiric IV antibiotics for now -Will hold off on surgery this morning, MRI report is pending as well as fluid analysis for crystals also pending would like to have these finalized prior to I&D should this be gout. -Tentatively planning on surgical debridement tomorrow morning 01/19/2022 at 7 AM. 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
[2022-01-18] MEDS: predniSONE 1 mg Tablet 2.5 MG PO (07:58)
[2022-01-18] MEDS: amlodipine 5 mg Tablet 2.5 MG PO (07:59)
--- NOTE | 2022-01-18 10:26 | PC.CHAP ---
Pastoral Care Encounter/Spiritual Assessment Type of Contact [] Declined appliance parts counter clerk visit [] Patient/Family/Request visit [] Outpatient visit [] Follow-up visit [] Physician referral [] Code/Alert [x] Routine visit [] Staff referral [] Actively dying [] Patient sleeping [] Family support [] [] Out of room [] Palliative care [] [] Receiving care in room [] Pre-surgical visit [] Trauma [] Long length of stay [] ICU visit [] Other: Relational/Emotional Strength [x] Patient feels connected with others/family/visitors/staff [] Distress [] Loneliness/isolation [] Abandonment Spirituality of Patient [x] Person of Nery [x] Attends Latter Day of their Nery [x] Believes in Prayer [] Reads Bible or Uatsdin materials [] There are Spiritual issues to be addressed Landscape Maintenance Internship Interventions [x] Prayer [x] Active listening [] Non-anxious presence [] Spiritual/emotional support [] Crisis/trauma care [] Spiritual counseling [] Bereavement support [] Provided bereavement packet [] Provided Bible/devotional materials [] Provided toy/stuffed animal, coloring book to patient or family member [] Provided Communion [] Anointing/[place] [] Salvation [x] Completed spiritual assessment [] Other: Impact on Illness or Injury [] Angry [] Fearful [] Anxious [] Often cries [] Exhaustion [] Unable to work [] Unable to attend advent [] Unable to walk/stand [] Unable to read [] Unable to drive [] Unable to eat/drink [] Unable to sleep [] Unable to be with family [] Patient intubated [] Other: Summary Time spent with patient 10 min
[2022-01-18 10:59] LABS: Crystals, Fluid See Path Consult
--- NOTE | 2022-01-18 12:29 | PM.PN ---
Subjective Subjective: No active bleed, hemoglobin 8.6 No leukocytosis or fever MRI showed abscess, as per the pathology report there is evidence of inflammation and crystals from the fluid taken in the ER from her joint Septic joint with abscess Plan for I&D tomorrow Vitals/I&O/Wt Last Vital Signs Temp 98.5 F 01/18/22 12:00 Pulse 72 01/18/22 12:00 Resp 16 01/18/22 12:00 BP 134/64 01/18/22 12:00 Pulse Ox 97 01/18/22 12:00 O2 Del Method 01/18/22 12:00 01/17/22 01/18/22 01/18/22 22:59 06:59 14:59 Intake Total 750 / 750 50 / 800 1290 / 1290 Balance 750 / 750 50 / 800 1290 / 1290 Weight last 48 hrs Weight 65.771 kg Weight 65.771 kg Physical Exam Narrative: Her foot erythema noted, has demarcated the area No active swelling No signs of gangrene Patient is awake and alert Nonfocal neuro exam Satting well on room air Very pleasant and cooperative Euvolemic Abdomen soft Data : 01/18/22 04:36 01/18/22 04:36 Micro: Microbiology 01/17/22 15:17 Blood Culture - Preliminary Blood SPECIMEN COLLECTED 01/17/22 15:12 Blood Culture - Preliminary Blood SPECIMEN COLLECTED A&P Assessment and plan (1) Cellulitis of right foot: Status: Acute (2) Right foot pain: Status: Acute (3) Abscess of right foot: Status: Acute (4) Pre-syncope: Status: Acute (5) Plaque psoriasis: Status: Acute (6) Psoriatic arthritis: Status: Acute Plan Septic joint Abscess formation Crystal formation seen by the pathologist Tenosynovitis She has creatinine 1.1 which is on her baseline, judicious use of anti-inflammatory medication I will treat her with steroids for anti-inflammatory effect I&D tomorrow N.p.o. after midnight Avoid DVT prophylaxis Attestations Medical Necessity Statement*: I&D tomorrow Time Spent in Patient Care: 40 Coding Level of Care Code Acute Fourdrinier Tender for [facility] Fwd Diagnoses Cellulitis of right foot L03.115 Right foot pain M79.671 Abscess of right foot L02.611 Pre-syncope R55 Plaque psoriasis L40.0 Psoriatic arthritis L40.50
[2022-01-18] MEDS: predniSONE 20 mg Tablet 40 MG PO ×2 (13:28→18:05)
[2022-01-18] MEDS: oxyCODONE 5 mg IR Tab/Cap PO ×2 (15:35→22:06)
[2022-01-18] MEDS: vancomycin 1,000 MG in sodium chloride 0.9% 250 ML 250 MG IV (15:35)
[2022-01-19] VITALS (19 sets, daily range): BP systolic 94–171; BP diastolic 32–87; PULSE 65–93; RESP 14–20; TEMP 36.2–37.1; O2SAT 91–100; BMI 24.7
[2022-01-19] MEDS: sodium chloride 0.9% 1,000 ML 100 ML IV ×2 (01:36→15:24)
[2022-01-19] MEDS: oxyCODONE 5 mg IR Tab/Cap PO ×3 (04:06→17:54)
[2022-01-19 04:27] LABS: Basophils % 0.3 %; Hemoglobin 8.6 g/dL (11.5-15.3); Lymphocytes # 0.8 10^3/uL (0.8-4.8); Lymphocytes % 11.1 %; Mean Corpuscular HGB Conc 31.9 g/dL (30.0-36.0); Mean Corpuscular Hemoglobin 29.1 pg (28.0-34.0); Mean Corpuscular Volume 91.2 fl (81-99); Mean Platelet Volume 9.5 fL (7.4-10.4); Monocytes # 0.2 10^3/uL (0.2-0.9); Monocytes % 3.3 %; Neutrophils % 82.9 %; Nucleated Red Blood Cells % 0 %; Platelet Count 439 10^3/cmm (130-400); Red Blood Count 2.96 10^6/uL (4.1-5.3)
[2022-01-19 04:51] LABS: Blood Urea Nitrogen 12 mg/dL (8-23); Calcium 8.9 mg/dL (8.5-10.5); Carbon Dioxide 23 mmol/L (22-29); Chloride 104 mmol/L (98-107); Glucose 132 mg/dL (65-115); Osmolality Calculated 286 mOsm/kg (285-295); Sodium 137 mmol/L (136-145)
[2022-01-19] MEDS: piperacillin-tazobactam 3.375 GM in sodium chloride 0.9% (plus) 50 ML IV ×2 (09:10→16:58)
[2022-01-19] MEDS: predniSONE 20 mg Tablet 40 MG PO ×2 (09:12→17:54)
[2022-01-19] MEDS: amlodipine 5 mg Tablet 2.5 MG PO (09:13)
--- NOTE | 2022-01-19 11:38 | PM.PN ---
Subjective Subjective: Patient seen bedside in the preop holding. Has been n.p.o. since midnight in preparation for incision and debridement to the right foot. Has cellulitis with gout superimposed on possible abscess. Patient denies any subjective nausea, vomiting, fever, chills, shortness of breath or chest pain. Vitals/I&O/Wt Last Vital Signs Temp 98.8 F 01/19/22 11:36 Pulse 93 01/19/22 11:35 Resp 18 01/19/22 11:35 BP 169/69 01/19/22 11:35 Pulse Ox 100 01/19/22 11:35 O2 Del Method 01/19/22 11:35 01/18/22 01/19/22 01/19/22 22:59 06:59 14:59 Intake Total 1060 / 2350 350 / 2700 Balance 1060 / 2350 350 / 2700 Weight last 48 hrs Weight 145 lb Weight 145 lb Physical Exam Narrative: ?Patient is alert and oriented ?3 and in no acute distress.? The following is a focused right lower extremity exam.? Accompanied by her granddaughter bedside. VASCULAR: Dorsalis pedis palpable.? Posterior tibial arteries palpable.? Capillary refill time less than 3 seconds to the distal hallux bilaterally. Calf is supple and nontender proximally and distally.? Decreased pedal hair growth bilaterally.? Edema to the right medial forefoot. NEUROLOGICAL: Protective sensation intact to light touch. DERMATOLOGICAL: Erythema with streaking to the midfoot medially from the first metatarsal phalangeal joint.? No open wound.? No crepitus with soft tissue palpation.? Warmth at the first metatarsal phalangeal joint, right foot. MUSCULOSKELETAL: Tenderness to palpation right first metatarsal phalangeal joint, mild tenderness with range of motion, no crepitus. Data : 01/19/22 03:59 01/19/22 03:59 Micro: Microbiology 01/17/22 21:00 Gram Stain - Final Toe - Aspirate Body Fluid Culture - Preliminary 01/17/22 15:17 Blood Culture - Preliminary Blood NEGATIVE TO DATE 01/17/22 15:12 Blood Culture - Preliminary Blood NEGATIVE TO DATE A&P Assessment and plan (1) Cellulitis of foot, right: Status: Acute (2) Right foot pain: Status: Acute Plan 71-year-old female presents with a red hot swollen right first metatarsal phalangeal joint over 1 week in duration, outpatient received 1 g of Rocephin and 7 days of doxycycline 100 mg twice daily with minimal improvement.? Had an episode of fevers and chills over the weekend.? At emergency department she is afebrile, no leukocytosis, ESR 27 and CRP 79.7 mg/L.? No acute findings on x-ray right foot [address] scan of the right foot is suspicious for abscess with cellulitis surrounding the first metatarsal phalangeal joint and sesamoids with fluid tracking along the extensor houses longus tendon to the level of the ankle.? She has erosive changes to the medial portion of the tibial sesamoid, osteomyelitis cannot be ruled out with CT. -MRI right foot is suspicious for osteomyelitis at the medial aspect of the first metatarsal head and neck, tenosynovitis with possible abscess at the extensor houses longus tendon, differential also includes septic joint to the right first metatarsal phalangeal joint. -Joint aspiration performed, right first metatarsal phalangeal joint, fluid analysis positive for crystals. Concern for infection superimposed on gout. -Empiric IV antibiotics for now Has been n.p.o. 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
--- NOTE | 2022-01-19 11:41 | W.PM.OPSUD ---
Surgery/Procedure H&P Update DATE OF PROCEDURE: January 17, 2022 DATE H&P PERFORMED: 01/17/22 CHANGES TO PREVIOUS DOCUMENTATION: None PLANNED PROCEDURE: Operation Date: 01/19/22 12:00 Proposed Procedures p Incision And Drainage right foot(Right) - Dc Begum DPM
[2022-01-19] MEDS: sodium chloride 0.9% 1,000 ML 30 ML IV (11:45)
--- NOTE | 2022-01-19 12:20 | PM.PN ---
Subjective Subjective: Plan for I&D today Septic joint, osteomyelitis first metatarsal medial aspect No bacteremia, patient is not septic, afebrile No leukocytosis Vitals/I&O/Wt Last Vital Signs Temp 98.8 F 01/19/22 11:36 Pulse 93 01/19/22 11:35 Resp 18 01/19/22 11:35 BP 169/69 01/19/22 11:35 Pulse Ox 100 01/19/22 11:35 O2 Del Method 01/19/22 11:35 01/18/22 01/19/22 01/19/22 22:59 06:59 14:59 Intake Total 1060 / 2350 350 / 2700 Balance 1060 / 2350 350 / 2700 Weight last 48 hrs Weight 65.771 kg Weight 65.771 kg Physical Exam Narrative: Patient is awake and alert Nonfocal neuro exam Satting well on room air Abdomen soft No audible stridor or wheezing Right foot erythema improved Tender to touch No vascular compromise Data : 01/19/22 03:59 01/19/22 03:59 Micro: Microbiology 01/17/22 21:00 Gram Stain - Final Toe - Aspirate Body Fluid Culture - Preliminary 01/17/22 15:17 Blood Culture - Preliminary Blood NEGATIVE TO DATE 01/17/22 15:12 Blood Culture - Preliminary Blood NEGATIVE TO DATE A&P Assessment and plan (1) Cellulitis of right foot: Status: Acute (2) Right foot pain: Status: Acute (3) Abscess of right foot: Status: Acute (4) Cellulitis of foot, right: Status: Acute (5) Dizziness: Status: Acute (6) Plaque psoriasis: Status: Acute Plan Right foot first metatarsal septic joint MRI also showing changes concerning for osteomyelitis Will touch base with Dr. Begum For now continue IV antibiotics I&D today for abscess drainage Patient has remained afebrile Cultures negative to date, no leukocytosis No signs of bacteremia or sepsis Psoriasis plaques no acute exacerbation For possible gout flareup I have increased the dose of prednisone which has improved erythema of her foot I would not add allopurinol for acute presentation We can start DVT prophylaxis after her drainage She can have regular diet after her procedure I do not think patient will need rehab regarding treatment of osteomyelitis we will make further plans after discussion with Dr. 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
--- NOTE | 2022-01-19 13:07 | PM.OP ---
Operative Report Date of procedure: January 19, 2022 Pre-op diagnosis: Abscess right foot Post-op diagnosis: Septic joint right foot first metatarsal phalangeal joint Post-op findings: Color changes to the medial aspect of the first metatarsal head off yellow, normal density Procedure done: Incision and debridement down to bone cortex right foot. CPT code 62200 Implants: 4-0 Monocryl, 4-0 nylon, quarter inch silicone drain Specimens removed/disposition: Medial aspect of the right first metatarsal head sent to microbiology for gram stain and culture. Pathology: Additional bone wafer sent to pathology first metatarsal head medial aspect for evaluation for possible osteomyelitis Surgeon: Dc Begum D.P.M. [employer] Agent: Jeni Estimated blood loss: 5 16 IV fluids: 0 Urine output: None Complications: None Findings: See post finding Brief History: Red hot swollen right first metatarsophalangeal joint extending to the forefoot. Elevated CRP. MRI and CT both suggestive of possible osteomyelitis and septic joint. Joint aspiration shows gout crystals. Mixed clinical and laboratory work-up. Given imaging and laboratory and clinical work-up being mixed recommended I&D with possible bone culture patient is agreeable wishes to proceed. Has been n.p.o. since midnight. Risks include but are not limited to pain, bleeding, numbness, infection, need for further surgical intervention. Procedure: Under mild sedation the patient was brought to the operating room and remained on the gurney in supine position. A timeout was performed. Anesthesia was then administered by the anesthesia service. Local anesthesia was injected by myself consisting of one-to-one mixture 0.25% Marcaine plain and 1% lidocaine plain and a right Botello block fashion total of 25 cc utilized. Well-padded pneumatic tourniquet applied to the right ankle. Right lower extremity was then scrubbed, prepped and draped utilizing normal aseptic technique. Right foot was elevated and the tourniquet inflated to 250 mmHg. Attention was directed to the dorsal medial aspect of the right first metatarsal phalangeal joint where a linear longitudinal incision was made with a #15 blade through skin with dissection carried down through subcutaneous tissue utilizing sharp and blunt technique with care taken to retract and preserve neurovascular and tendinous structures. All bleeders were ligated and cauterized as necessary. Area of joint capsule medial to the first metatarsal phalangeal joint had a abnormal color was dark brown and was of poor consistency this was incised and medial aspect of the first metatarsal head was exposed also this area had a dark yellow-grayish appearance and was not bright white however density was appropriate. Small piece of bone sent to microbiology for gram stain, culture and sensitivity as well as await for utilizing osteotomy and osteotome sent to pathology for review to rule out osteomyelitis. The incision was flushed with copious months of sterile skin solution. No crepitus with soft tissue palpation or at the first metatarsal phalangeal joint with range of motion. The first metatarsal phalangeal joint was also irrigated with copious amounts of sterile skin solution. Subcutaneous tissue and capsule reapproximated with 4-0 Monocryl and skin with 4-0 nylon quarter inch silicone drain was inserted at the proximal/apex of the incision. Incision site was dressed with Adaptic, sterile 4 x 4's, Kerlix, Gary wrap and postop shoe. Tourniquet was deflated and a prompt hyperemic response is noted to the distal digits of the right foot. Patient tolerated the procedure well and was transferred to the PACU with vital signs stable and vascular status intact. Recommend waiting for bone culture and pathology report before de-escalating antibiotics, these may guide antibiotic selection for potential long-term antibiotic therapy. Will await cultures.
--- NOTE | 2022-01-19 13:12 | ANES.PREANE2 ---
Pre-Anesthetic Assessment Height/Weight: Height 71.12 cm Weight 65.771 kg Temp Pulse Resp BP Pulse Ox O2 Del Method 97.1 F L 79 16 94/61 98 01/19/22 12:46 01/19/22 13:08 01/19/22 13:08 01/19/22 13:08 01/19/22 13:08 01/19/22 13:08 Operation Date: 01/19/22 12:00 Proposed Procedures p Incision And Drainage right foot(Right) - Dc Begum DPM Familial anesthetic complications: none Was Beta Fariba taken within 24 hours: N/A Was Clonidine taken within 24 hours: N/A Last intake: Intake Last Liquid Date 01/19/22 Last Liquid Time 00:00 Last Solid Date 01/18/22 Last Solid Time 19:30 Social No alcohol and No tobacco Exam alert, oriented x 3, clear to auscultation bilaterally and regular rate & rhythm Airway Submandibular: within normal limits Cervical ROM: within normal limits Mallampati: Class II Dentition: false CV/HEM Hypertension Hepatic Hepatitis Metabolic Hyperlipidemia chronic steroids Neuropsych Depression and Neuropathy Anesthetic Plan ASA status: 3 Anesthesia: General Medications/Allergies Home Medications Medication Instructions Recorded Confirmed Last Taken Type oxycodone 10 mg tablet 10 - 20 mg PO QID PRN pain 07/28/20 01/18/22 Unknown History amlodipine 2.5 mg tablet 2.5 mg PO DAILY #90 tabs 11/18/20 01/18/22 Unknown Rx amitriptyline 25 mg tablet 25 mg PO BEDTIME 01/27/21 01/18/22 Unknown History prednisone 2.5 mg tablet 2.5 mg PO DAILY 01/27/21 01/18/22 Unknown History linaclotide 290 mcg capsule 290 mcg PO DAILY #30 caps 09/07/21 01/18/22 Unknown Rx (Linzess) tofacitinib 5 mg tablet (Xeljanz) 5 mg PO BID #60 tabs 11/29/21 01/18/22 Unknown Rx ondansetron HCl 4 mg tablet 4 mg PO TID PRN nausea and 01/13/22 01/18/22 Unknown Rx vomiting #20 tabs Allergies Allergy/AdvReac Type Severity Reaction Status Date / Time codeine Allergy Mild Unknown Verified 01/18/22 08:31 isosorbide Allergy Mild Unknown Verified 01/18/22 08:31 latex Allergy ALGY-Rash Verified 01/19/22 11:42 leflunomide AdvReac Mild nausea and Verified 01/18/22 08:31 vomiting azathioprine [From Imuran] AdvReac Unknown ADR-Vomitin Verified 01/18/22 08:31 g Current Medications Generic Name Dose Route Start Last Admin Trade Name Freq PRN Reason Stop Dose Admin Amitriptyline HCl 25 mg 01/17/22 23:30 01/18/22 22:06 Amitriptyline 25 Mg Tablet PO 25 mg BEDTIME COLTEN Administration Amlodipine Besylate 2.5 mg 01/18/22 09:00 01/19/22 09:13 Amlodipine 5 Mg Tablet PO 2.5 mg DAILY COLTEN Administration Famotidine 20 mg 01/18/22 09:00 01/19/22 09:14 Famotidine 20 Mg Tablet PO Not Given BID COLTEN Heparin Sodium (Porcine) 5,000 unit 01/18/22 00:00 01/18/22 11:32 Heparin 5,000 Unit/Ml Inj 1 Ml SUBCUT 5,000 unit Q12H COLTEN Administration Sodium Chloride 1,000 mls @ 100 mls/hr 01/17/22 20:15 01/19/22 01:36 Sodium Chloride 0.9% IV 100 mls/hr .Q10H COLTEN Administration Vancomycin HCl 1,000 mg/ 250 mls @ 250 mls/hr 01/18/22 16:00 01/18/22 16:35 Sodium Chloride IV Infused Q24H COLTEN Infusion Protocol As Directed Piperacillin Sod/Tazobactam 50 mls @ 12.5 mls/hr 01/18/22 00:00 01/19/22 09:10 Sod 3.375 gm/ Sodium Chloride IV 12.5 mls/hr Q8H COLTEN Administration Protocol Sodium Chloride 1,000 mls @ 30 mls/hr 01/19/22 11:45 01/19/22 11:45 Sodium Chloride 0.9% IV 01/20/22 11:44 30 mls/hr .Q24H COLTEN Administration Morphine Sulfate 2 mg 01/18/22 02:26 01/18/22 18:08 Morphine 4 Mg/Ml Sdv 1 Ml IVP 2 mg Q4H PRN Administration SEVERE PAIN Non-Formulary Medication 5 mg 01/18/22 09:00 01/19/22 10:48 Tofacitinib PO Not Given BID COLTEN Ondansetron HCl 4 mg 01/17/22 20:04 01/18/22 02:41 Ondansetron 2 Mg/Ml Sdv 2 Ml IVP 4 mg Q8H PRN Administration vomiting, or N/V if npo Oxycodone HCl 10 - 20 mg 01/18/22 12:00 01/19/22 10:48 Oxycodone 5 Mg Ir Tab/Cap PO 10 mg QID PRN Administration pain Prednisone 40 mg 01/18/22 12:35 01/19/22 09:12 Prednisone 20 Mg Tablet PO 40 mg BID COLTEN Administration PFSH Anesthesia Medical History Autoimmune hepatitis Depression Dysfunctional gallbladder Encounter for screening for other viral diseases Essential (primary) hypertension High risk medication use Hyperlipemia Immunization counseling Inflammatory arthritis Insomnia Peripheral neuropathy Plaque psoriasis Psoriasis Surgical History History of appendectomy History of carpal tunnel surgery History of section Family History Mother Cancer Other Aneurysm COPD (chronic obstructive pulmonary disease) Social History Smoking and tobacco status: former smoker Alcohol intake: former History of recent travel: No Current gender identity: Female Data Anesthesia : 01/19/22 03:59 01/19/22 03:59 Short CBC 01/17/22 01/18/22 01/19/22 Range/Units 15:12 04:36 03:59 WBC 8.4 6.2 7.0 (4.0-10.0) 10^3/uL Hgb 9.2 L 8.6 L 8.6 L (11.5-15.3) g/dL Hct 28.5 L 27.0 L 27.0 L (37.0-47.0) % MCV 89.3 90.0 91.2 (81-99) fl Plt Count 437 H 447 H 439 H (130-400) 10^3/cmm Neut % (Auto) 60.1 61.0 82.9 % Neut # (Auto) 5.02 3.77 5.80 (1.8-7.7) 10^3/uL BMP 01/17/22 01/18/22 01/19/22 15:12 04:36 03:59 Sodium 130 L 136 137 Potassium 4.1 4.8 5.0 Chloride 93 L 102 104 Carbon Dioxide 24 24 23 BUN 17 13 12 Creatinine 1.2 H 1.1 H 1.0 H Glucose 111 84 132 H Calcium 9.4 8.6 8.9 Liver Function 01/17/22 01/18/22 Range/Units 15:12 04:36 Total Bilirubin 0.3 0.2 (0.15-1.2) mg/dL AST 32 25 (0-32) U/L ALT 23 19 (0-33) U/L Alkaline Phosphatase 88 73 (35-105) IU/L Albumin 3.5 3.0 L (3.5-5.2) g/dL Coags 01/17/22 01/17/22 15:12 15:12 ESR 27 H C-Reactive Protein 79.7 H Microbiology 01/17/22 21:00 Gram Stain - Final Toe - Aspirate Body Fluid Culture - Preliminary 01/17/22 15:17 Blood Culture - Preliminary Blood NEGATIVE TO DATE 01/17/22 15:12 Blood Culture - Preliminary Blood NEGATIVE TO DATE Cardiac Studies: No Data to Display
--- NOTE | 2022-01-19 13:42 | ANE.PACU2 ---
Inpatient post-anesthesia follow up: Airway intact: Yes Vital signs: Temperature 97.1 F Pulse Rate 79 Respiratory Rate 16 Blood Pressure 94/61 Pulse Oximetry 98 Oxygen Delivery Me thod Room Air Oxygen Flow Rate Fraction of Inspir ed Oxygen Hydration adequate: Yes Nausea and vomiting: No Pain level: 1 Mental status: Baseline
[2022-01-19] MEDS: heparin 5,000 unit/mL INJ 1 mL 5000 UNIT SUBCUT (15:05)
[2022-01-19] MEDS: vancomycin 1,000 MG in sodium chloride 0.9% 250 ML 250 MG IV (15:24)
--- NOTE | 2022-01-19 15:28 | PC.NURSE ---
Patient returned from surgery without issues. Patient has no nausea or vomitting. Patient is back to regular diet at dinner time.
[2022-01-19] MEDS: morphine 4 mg/mL SDV 1 mL 2 MG IVP (19:51)
[2022-01-19] MEDS: amitriptyline 25 mg Tablet PO (21:17)
[2022-01-20] VITALS (10 sets, daily range): BP systolic 136–179; BP diastolic 69–78; PULSE 70–104; RESP 16–21; TEMP 36.6–36.7; O2SAT 95–98
[2022-01-20] MEDS: piperacillin-tazobactam 3.375 GM in sodium chloride 0.9% (plus) 50 ML IV ×4 (00:14→23:46)
[2022-01-20] MEDS: oxyCODONE 5 mg IR Tab/Cap PO ×2 (00:15→08:40)
[2022-01-20] MEDS: heparin 5,000 unit/mL INJ 1 mL 5000 UNIT SUBCUT ×3 (00:15→23:46)
[2022-01-20] MEDS: sodium chloride 0.9% 1,000 ML 100 ML IV (02:36)
[2022-01-20] MEDS: amlodipine 5 mg Tablet 2.5 MG PO (08:41)
[2022-01-20] MEDS: predniSONE 20 mg Tablet 40 MG PO (08:41)
[2022-01-20] MEDS: naproxen 500 mg Tablet PO ×2 (10:39→20:17)
--- NOTE | 2022-01-20 10:59 | P.PN_ITS ---
Subjective Subjective: This morning patient is stating that pain was unbearable this morning Will escalate her pain regimen Continue bowel regimen Last bowel movement was yesterday I did tell her that she might have to stay here until Sunday to see her final tissue culture report This might be too early to say cultures are negative She does have gouty arthritis presentation however there is concern for osteomyelitis as well continue antibiotics She has been afebrile no signs of sepsis We are waiting to see final culture report before making decision regarding PICC line Vitals/I&O/Wt Last Vital Signs Temp 98.0 F 01/20/22 07:13 Pulse 104 H 01/20/22 07:13 Resp 17 01/20/22 08:40 BP 176/71 01/20/22 07:13 Pulse Ox 98 01/20/22 08:40 O2 Del Method 01/20/22 07:13 01/19/22 01/20/22 01/20/22 22:59 06:59 14:59 Intake Total 1085 / 2135 1115 / 3250 240 / 240 Balance 1085 / 2133 1115 / 3248 240 / 240 Weight last 48 hrs Weight 61.235 kg Physical Exam Narrative: Patient is awake and alert Nonfocal exam Satting well on room air Abdomen soft S1, S2 Right foot is covered in Gary wraps Dressing was not removed No signs of ischemic ulcer of toes Family at the bedside Data : 01/19/22 03:59 01/19/22 03:59 Micro: Microbiology 01/19/22 12:30 Gram Stain - Final Foot - #1 01/17/22 21:00 Gram Stain - Final Toe - Aspirate Body Fluid Culture - Preliminary A&P Assessment and plan (1) Right foot pain: Status: Acute (2) Cellulitis of right foot: Status: Acute (3) Abscess of right foot: Status: Acute (4) Cellulitis of foot, right: Status: Acute (5) Gouty arthritis: Status: Acute (6) Hyperlipemia: Status: Acute (7) Depression: Status: Acute (8) Psoriatic arthritis: Status: Acute (9) Plaque psoriasis: Status: Acute Plan Gouty arthritis She is currently on steroids high-dose Signs of formation getting reduced Afebrile I would not start allopurinol, she will need uric acid level checked within 2 to 3 months She can start allopurinol once acute stages subsided Creatinine is not worsening, we can try NSAIDs for acute pain relief, will give her 1 dose of ketorolac Osteomyelitis to be ruled out MRI did show concerning changes Will have to wait until final cultures are back, waiting on PICC line placement for now Sandra might wait until Sunday For opioid I will add Dilaudid for her foot pain, oxycodone is also on board Continue bowel regimen Full code DVT prophylaxis on board Chronic kidney disease creatinine stable Acute on chronic anemia hemoglobin stable for now Attestations Medical Necessity Statement*: Will stay over the weekend Time Spent in Patient Care: 40 Coding Level of Care Code 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
--- NOTE | 2022-01-20 11:51 | PC.NURSE ---
Patient refused Ketorolac. Stated her pain is under control. She let it get out of control early this am but has had pain med and level is down to a 5
--- NOTE | 2022-01-20 12:34 | PM.OP ---
Operative Report Date of procedure: January 20, 2022 Pre-op diagnosis: Abscess right foot 119
--- NOTE | 2022-01-20 13:17 | PM.PN ---
Subjective Subjective: Patient seen bedside this morning, endorses some pain to her right foot. Had increased pain overnight. No strikethrough the dressing. States the pain is under control after getting back on her medications apparently there was an issue with Pyxis overnight. Patient denies any subjective nausea, vomiting, fever, chills, shortness of breath or chest pain. Vitals/I&O/Wt Last Vital Signs Temp 98.0 F 01/20/22 07:13 Pulse 85 01/20/22 11:33 Resp 16 01/20/22 11:33 BP 167/75 01/20/22 11:33 Pulse Ox 97 01/20/22 11:33 O2 Del Method 01/20/22 11:33 01/19/22 01/20/22 01/20/22 22:59 06:59 14:59 Intake Total 1085 / 2135 1115 / 3250 240 / 240 Balance 1085 / 2133 1115 / 3248 240 / 240 Weight last 48 hrs Weight 135 lb Physical Exam Narrative: ?Patient is alert and oriented ?3 and in no acute distress.? The following is a focused right lower extremity exam.? Accompanied by her granddaughter bedside. VASCULAR: Dorsalis pedis palpable.? Posterior tibial arteries palpable.? Capillary refill time less than 3 seconds to the distal hallux bilaterally. Calf is supple and nontender proximally and distally.? Decreased pedal hair growth bilaterally.? Edema to the right medial forefoot. NEUROLOGICAL: Protective sensation intact to light touch. DERMATOLOGICAL: Erythema with streaking to the midfoot medially from the first metatarsal phalangeal joint.? No open wound.? No crepitus with soft tissue palpation.? Warmth at the first metatarsal phalangeal joint, right foot. MUSCULOSKELETAL: Tenderness to palpation right first metatarsal phalangeal joint, mild tenderness with range of motion, no crepitus. Data : 01/19/22 03:59 01/19/22 03:59 Micro: Microbiology 01/19/22 12:30 Gram Stain - Final Foot - #1 01/17/22 21:00 Gram Stain - Final Toe - Aspirate Body Fluid Culture - Final A&P Assessment and plan (1) Cellulitis of foot, right: Status: Acute (2) Right foot pain: Status: Acute Plan 71-year-old female presents with a red hot swollen right first metatarsal phalangeal joint over 1 week in duration, outpatient received 1 g of Rocephin and 7 days of doxycycline 100 mg twice daily with minimal improvement.? Had an episode of fevers and chills over the weekend.? At emergency department she is afebrile, no leukocytosis, ESR 27 and CRP 79.7 mg/L.? No acute findings on x-ray right foot [address] scan of the right foot is suspicious for abscess with cellulitis surrounding the first metatarsal phalangeal joint and sesamoids with fluid tracking along the extensor houses longus tendon to the level of the ankle.? She has erosive changes to the medial portion of the tibial sesamoid, osteomyelitis cannot be ruled out with CT. -MRI right foot is suspicious for osteomyelitis at the medial aspect of the first metatarsal head and neck, tenosynovitis with possible abscess at the extensor houses longus tendon, differential also includes septic joint to the right first metatarsal phalangeal joint. -Joint aspiration performed, right first metatarsal phalangeal joint, fluid analysis positive for crystals. Concern for infection superimposed on gout. -Empiric IV antibiotics for now -Micro bone culture and pathology bone specimen reports are both pending. -New dry sterile dressing applied, there is a decrease in erythema and no purulent drainage appreciated. Added naproxen 500 mg twice daily for underlying gout flare. 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
--- NOTE | 2022-01-20 15:21 | PC.SOCIAL ---
IMM Update pg 2 of IMM updated and reviewed w/ patient. Copy provided and Copy dated, initialed and placed in chart.
[2022-01-20 15:33] LABS: Vancomycin Trough 12.9 ug/mL (10-15)
[2022-01-20] MEDS: oxyCODONE 5 mg IR Tab/Cap 10 MG PO ×2 (16:38→21:28)
[2022-01-20] MEDS: vancomycin 1,000 MG in sodium chloride 0.9% 250 ML 250 MG IV (16:47)
[2022-01-20] MEDS: amitriptyline 25 mg Tablet PO (20:17)
[2022-01-20] MEDS: morphine 4 mg/mL SDV 1 mL 2 MG IVP (23:57)
[2022-01-21] VITALS (11 sets, daily range): BP systolic 140–194; BP diastolic 62–91; PULSE 68–79; RESP 14–18; TEMP 36.5–37.1; O2SAT 96–99
[2022-01-21] MEDS: oxyCODONE 5 mg IR Tab/Cap 10 MG PO ×5 (02:34→20:31)
[2022-01-21] MEDS: docusate sodium 100 mg Capsule PO ×3 (03:34→18:19)
[2022-01-21] MEDS: sennosides 8.6 mg Tablet PO ×3 (03:34→18:19)
[2022-01-21] MEDS: pantoprazole DR 40 mg Tablet PO ×2 (05:07→08:05)
[2022-01-21] MEDS: ondansetron 2 mg/ML SDV 2 mL 4 MG IVP ×2 (05:07→13:12)
[2022-01-21 05:33] LABS: Basophils # 0.1 10^3/uL (0.0-0.1); Basophils % 0.5 %; Eosinophils % 0.1 %; Hematocrit 30.9 % (37.0-47.0); Hemoglobin 9.1 g/dL (11.5-15.3); Lymphocytes # 1.5 10^3/uL (0.8-4.8); Lymphocytes % 13.9 %; Mean Corpuscular HGB Conc 29.4 g/dL (30.0-36.0); Mean Corpuscular Hemoglobin 28.3 pg (28.0-34.0); Mean Corpuscular Volume 96.3 fl (81-99); Mean Platelet Volume 9.2 fL (7.4-10.4); Monocytes # 0.7 10^3/uL (0.2-0.9); Monocytes % 6.1 %; Neutrophils # 8.33 10^3/uL (1.8-7.7); Neutrophils % 76.3 %; Nucleated Red Blood Cells % 0.3 %; Platelet Count 470 10^3/cmm (130-400); Red Blood Count 3.21 10^6/uL (4.1-5.3); Red Cell Distribution Width 15.7 % (12.1-15.1); White Blood Count 10.9 10^3/uL (4.0-10.0)
[2022-01-21 06:00] LABS: Blood Urea Nitrogen 17 mg/dL (8-23); Calcium 9.2 mg/dL (8.5-10.5); Carbon Dioxide 25 mmol/L (22-29); Chloride 105 mmol/L (98-107); Glomerular Filtration Rate 49.2 mL/min (90-130); Glucose 105 mg/dL (65-115); Osmolality Calculated 296 mOsm/kg (285-295); Sodium 142 mmol/L (136-145)
--- NOTE | 2022-01-21 06:42 | PM.PN ---
Subjective Subjective: Patient seen bedside today status post incision and debridement with incision down to bone cortex, bone culture to micro pending. Patient denies any subjective nausea, vomiting, fever, chills, shortness of breath or chest pain. Has been able to walk around the hospital doing well with this. Vitals/I&O/Wt Last Vital Signs Temp 97.9 F 01/21/22 04:00 Pulse 68 01/21/22 04:00 Resp 14 01/21/22 04:00 BP 166/75 01/21/22 04:00 Pulse Ox 98 01/21/22 04:00 O2 Del Method 01/21/22 04:00 01/20/22 01/20/22 01/21/22 14:59 22:59 06:59 Intake Total 1290 / 1290 2584 / 3874 550 / 4424 Balance 1290 / 1290 2584 / 3874 550 / 4424 Weight last 48 hrs Weight 135 lb Physical Exam Narrative: ?Patient is alert and oriented ?3 and in no acute distress.? The following is a focused right lower extremity exam.? Accompanied by her granddaughter bedside. VASCULAR: Dorsalis pedis palpable.? Posterior tibial arteries palpable.? Capillary refill time less than 3 seconds to the distal hallux bilaterally. Calf is supple and nontender proximally and distally.? Decreased pedal hair growth bilaterally.? Edema to the right medial forefoot. NEUROLOGICAL: Protective sensation intact to light touch. DERMATOLOGICAL:No erythema, warmth or drainage at this time to the right foot. Incision is well coapted with sutures intact. No dehiscence. No periincisional erythema. MUSCULOSKELETAL: No tenderness to palpation right first metatarsal phalangeal joint, mild tenderness with range of motion. No crepitus to soft tissue at the right foot. Data : 01/21/22 05:13 01/21/22 05:13 Micro: Microbiology 01/19/22 12:30 Gram Stain - Final Foot - #1 01/17/22 21:00 Gram Stain - Final Toe - Aspirate Body Fluid Culture - Final A&P Assessment and plan (1) Cellulitis of foot, right: Status: Acute (2) Right foot pain: Status: Acute Plan 71-year-old female presents with a red hot swollen right first metatarsal phalangeal joint over 1 week in duration, outpatient received 1 g of Rocephin and 7 days of doxycycline 100 mg twice daily with minimal improvement.? Had an episode of fevers and chills over the weekend.? At emergency department she is afebrile, no leukocytosis, ESR 27 and CRP 79.7 mg/L.? No acute findings on x-ray right foot [address] scan of the right foot is suspicious for abscess with cellulitis surrounding the first metatarsal phalangeal joint and sesamoids with fluid tracking along the extensor houses longus tendon to the level of the ankle.? She has erosive changes to the medial portion of the tibial sesamoid, osteomyelitis cannot be ruled out with CT. MRI right foot is suspicious for osteomyelitis at the medial aspect of the first metatarsal head and neck, tenosynovitis with possible abscess at the extensor houses longus tendon, differential also includes septic joint to the right first metatarsal phalangeal joint. -Joint aspiration performed, right first metatarsal phalangeal joint, fluid analysis positive for crystals. Concern for infection superimposed on gout. Joint aspiration 01/18/2022 -Empiric IV antibiotics for now -Naproxen 500 mg every 12 for gout flare -New dry sterile dressing applied, there is a decrease in erythema and no purulent drainage appreciated. -Micro bone culture and pathology bone specimen reports are both pending. Once bone culture yields further information antibiotic selection and discharge planning is the neck step. 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
[2022-01-21] MEDS: piperacillin-tazobactam 3.375 GM in sodium chloride 0.9% (plus) 50 ML IV ×2 (08:04→17:49)
[2022-01-21] MEDS: predniSONE 20 mg Tablet 40 MG PO (08:05)
[2022-01-21] MEDS: amlodipine 5 mg Tablet 2.5 MG PO (08:05)
[2022-01-21] MEDS: naproxen 500 mg Tablet PO ×2 (08:08→20:30)
--- NOTE | 2022-01-21 11:40 | PM.PN ---
Subjective Subjective: No fever, mild leukocytosis I did counseling aide patient regarding as needed opiate use and bowel regimen She is hopeful to return home this weekend however she is also aware that we are waiting on bone culture report to decide on antibiotics Vitals/I&O/Wt Last Vital Signs Temp 98.3 F 01/21/22 08:00 Pulse 77 01/21/22 08:00 Resp 15 01/21/22 08:00 BP 140/91 01/21/22 08:00 Pulse Ox 97 01/21/22 08:00 O2 Del Method 01/21/22 08:00 01/20/22 01/21/22 01/21/22 22:59 06:59 14:59 Intake Total 2584 / 3874 550 / 4424 Balance 2584 / 3874 550 / 4424 Weight last 48 hrs Weight 61.235 kg Physical Exam Narrative: Signs ofAwake and alert Euvolemic Abdomen soft Erythema improving Given culture No active pain Very pleasant cooperative Saturating well on room air S1, S2 Data : 01/21/22 05:13 01/21/22 05:13 Micro: Microbiology 01/19/22 12:30 Gram Stain - Final Foot - #1 01/17/22 21:00 Gram Stain - Final Toe - Aspirate Body Fluid Culture - Final A&P Assessment and plan (1) Gouty arthritis: Status: Acute (2) Cellulitis of right foot: Status: Acute (3) Abscess of right foot: Status: Acute (4) Plaque psoriasis: Status: Acute (5) Essential (primary) hypertension: Status: Acute Plan We are waiting on micro bone cultures and pathology report She has gouty arthritis I am giving her prednisone for acute gout flare Her creatinine is 1.1, can try naproxen for 24 hours and see the response Continue IV antibiotics for possible septic joint however cultures are negative to date Afebrile We are waiting on culture report to decide on PICC line and selection of antibiotic at the discharge She may go home on p.o. 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
[2022-01-21] MEDS: heparin 5,000 unit/mL INJ 1 mL 5000 UNIT SUBCUT (12:07)
[2022-01-21] MEDS: vancomycin 1,000 MG in sodium chloride 0.9% 250 ML 250 MG IV (16:27)
[2022-01-21] MEDS: amitriptyline 25 mg Tablet PO (20:31)
[2022-01-22] VITALS (7 sets, daily range): BP systolic 170–213; BP diastolic 72–91; PULSE 67–84; RESP 15–17; TEMP 36.6; O2SAT 96–100
[2022-01-22] MEDS: heparin 5,000 unit/mL INJ 1 mL 5000 UNIT SUBCUT (00:01)
[2022-01-22] MEDS: piperacillin-tazobactam 3.375 GM in sodium chloride 0.9% (plus) 50 ML IV ×2 (00:01→08:19)
[2022-01-22] MEDS: oxyCODONE 5 mg IR Tab/Cap 10 MG PO ×2 (00:04→05:11)
[2022-01-22 07:05] LABS: Basophils % 0.2 %; Eosinophils % 0.1 %; Hematocrit 30.4 % (37.0-47.0); Hemoglobin 9.6 g/dL (11.5-15.3); Lymphocytes # 1.7 10^3/uL (0.8-4.8); Lymphocytes % 19.1 %; Mean Corpuscular HGB Conc 31.6 g/dL (30.0-36.0); Mean Corpuscular Hemoglobin 28.2 pg (28.0-34.0); Mean Corpuscular Volume 89.4 fl (81-99); Mean Platelet Volume 9.4 fL (7.4-10.4); Monocytes # 0.6 10^3/uL (0.2-0.9); Monocytes % 6.8 %; Neutrophils # 6.34 10^3/uL (1.8-7.7); Neutrophils % 69.5 %; Nucleated Red Blood Cells # 0.1 /100WBC; Nucleated Red Blood Cells % 0.5 %; Platelet Count 495 10^3/cmm (130-400); Red Cell Distribution Width 14.8 % (12.1-15.1); White Blood Count 9.1 10^3/uL (4.0-10.0)
[2022-01-22 07:50] LABS: Anion Gap 14.6 (5-19); Blood Urea Nitrogen 20 mg/dL (8-23); Calcium 8.9 mg/dL (8.5-10.5); Carbon Dioxide 25 mmol/L (22-29); Chloride 103 mmol/L (98-107); Glomerular Filtration Rate 44.5 mL/min (90-130); Glucose 82 mg/dL (65-115); Osmolality Calculated 290 mOsm/kg (285-295); Potassium 3.6 mmol/L (3.5-5.1); Sodium 139 mmol/L (136-145)
[2022-01-22] MEDS: pantoprazole DR 40 mg Tablet PO (08:20)
[2022-01-22] MEDS: predniSONE 20 mg Tablet 40 MG PO (08:21)
[2022-01-22] MEDS: naproxen 500 mg Tablet PO (08:21)
[2022-01-22] MEDS: docusate sodium 100 mg Capsule PO (08:21)
[2022-01-22] MEDS: sennosides 8.6 mg Tablet PO (08:21)
[2022-01-22] MEDS: amlodipine 5 mg Tablet 2.5 MG PO (08:21)
--- NOTE | 2022-01-22 09:27 | P.PN_ITS ---
Subjective Subjective: Patient seen bedside this morning. In good spirits. Tolerating regular diet. Denies pain to the right foot. Has been able to ambulate without pain. Patient denies any subjective nausea, vomiting, fever, chills, shortness of breath or chest pain. Vitals/I&O/Wt Last Vital Signs Temp 97.8 F 01/22/22 08:00 Pulse 72 01/22/22 08:00 Resp 17 01/22/22 08:00 BP 191/76 01/22/22 08:00 Pulse Ox 100 01/22/22 08:00 O2 Del Method 01/21/22 08:00 01/21/22 01/22/22 01/22/22 22:59 06:59 14:59 Intake Total 740 / 1350 200 / 1550 Balance 740 / 1350 200 / 1550 Physical Exam Narrative: ?Patient is alert and oriented ?3 and in no acute distress.? The following is a focused right lower extremity exam.? Accompanied by her granddaughter bedside. VASCULAR: Dorsalis pedis palpable.? Posterior tibial arteries palpable.? Capillary refill time less than 3 seconds to the distal hallux bilaterally. Calf is supple and nontender proximally and distally.? Decreased pedal hair growth bilaterally.? Edema to the right medial forefoot. NEUROLOGICAL: Protective sensation intact to light touch. DERMATOLOGICAL:No erythema, warmth or drainage at this time to the right foot. Incision is well coapted with sutures intact. No dehiscence. No periincisional erythema. MUSCULOSKELETAL: No tenderness to palpation right first metatarsal phalangeal joint, mild tenderness with range of motion. No crepitus to soft tissue at the right foot. Data : 01/22/22 06:25 01/22/22 06:25 Micro: Microbiology 01/19/22 12:30 Gram Stain - Final Foot - #1 Tissue Culture - Preliminary Staphylococcus species A&P Assessment and plan (1) Cellulitis of foot, right: Status: Acute (2) Right foot pain: Status: Acute Plan 71-year-old female presents with a red hot swollen right first metatarsal phalangeal joint over 1 week in duration, outpatient received 1 g of Rocephin and 7 days of doxycycline 100 mg twice daily with minimal improvement.? Had an episode of fevers and chills over the weekend.? At emergency department she is afebrile, no leukocytosis, ESR 27 and CRP 79.7 mg/L.? No acute findings on x-ray right foot [address] scan of the right foot is suspicious for abscess with cellulitis surrounding the first metatarsal phalangeal joint and sesamoids with fluid tracking along the extensor houses longus tendon to the level of the ankle.? She has erosive changes to the medial portion of the tibial sesamoid, osteomyelitis cannot be ruled out with CT. MRI right foot is suspicious for osteomyelitis at the medial aspect of the first metatarsal head and neck, tenosynovitis with possible abscess at the extensor houses longus tendon, differential also includes septic joint to the right first metatarsal phalangeal joint. -Micro bone culture and pathology bone specimen reports are both pending. -Micro bone culture and pathology bone specimen reports are both pending. -Clinically much improved, no erythema or warmth, no edema to the right foot. Right foot incision is well-healing with sutures intact. -Surgical culture showing staph species. Okay for discharge given her clinical improvement, planning on doxycycline and steroid taper at discharge. -Weightbearing as tolerated on the right foot, elevate right foot while resting. -Once daily dressing change gauze, Kerlix and Gary wrap. Keep right foot clean and dry at all times. -Will continue to follow culture and sensitivities and make any necessary a djustments to antibiotic regimen outpatient, will follow-up in podiatry clinic this week 01/27/2022 at 1:00 PM. Attestations Medical Necessity Statement*: Cellulitis with abscess right foot Coding Level of Care Code Acute Deputy Sheriff Custody for Yasemin Jay Diagnoses Cellulitis of foot, right L03.115 Right foot pain M79.671
[2022-01-22] MEDS: amlodipine 10 mg Tablet PO (09:45)
[2022-01-22] MEDS: lisinopril 10 mg Tablet PO (09:45)
--- NOTE | 2022-01-22 11:36 | P.DS_ITS ---
Discharge Providers Date of Admission: 01/17/22 19:05 Date of Discharge: January 22, 2022 Attending Provider at Admission: Kia Rodriguez MD Attending Provider at Discharge: Maximus Rinaldi MD Primary Care Provider: Carlos Manuel Her MD Diagnoses at Discharge Discharge Diagnosis (1) Cellulitis of foot, right: Status: Acute (2) Right foot pain: Status: Acute Reason for Visit Reason for Visit: right foot pain Hospital Course Hospital Course Usman Hilliard is a 71-year-old female presents with a red hot swollen right first metatarsal phalangeal joint over 1 week in duration, outpatient received 1 g of Rocephin and 7 days of doxycycline 100 mg twice daily with minimal improvement.? Had an episode of fevers and chills over the weekend.? At emergency department she is afebrile, no leukocytosis, ESR 27 and CRP 79.7 mg/L .? No acute findings on x-ray right foot [address] scan of the right foot is suspicious for abscess with cellulitis surrounding the first metatarsal phalangeal joint and sesamoids with fluid tracking along the extensor houses longus tendon to the level of the ankle.? She has erosive changes to the medial portion of the tibial sesamoid, osteomyelitis cannot be ruled out with CT. MRI right foot is suspicious for osteomyelitis at the medial aspect of the first metatarsal head and neck, tenosynovitis with possible abscess at the extensor houses longus tendon, differential also includes septic joint to the right first metatarsal phalangeal joint. -Micro bone culture and pathology bone specimen reports are both pending. -Micro bone culture and pathology bone specimen reports are both pending. -Clinically much improved, no erythema or warmth, no edema to the right foot.? Right foot incision is well-healing with sutures intact. -Surgical culture showing staph species.? Patient being discharged on doxycycline and steroid taper and oxycodone, bowel regimen prescription -Weightbearing as tolerated on the right foot, elevate right foot while resting. -Once daily dressing change gauze, Kerlix and Gary wrap.? Keep right foot clean and dry at all times. -Will continue to follow culture and sensitivities and make any necessary adjustments to antibiotic regimen outpatient, will follow-up in podiatry clinic this week 01/27/2022 at 1:00 PM. Physical Exam Narrative: Patient is alert and oriented ?3 and in no acute distress.? The following is a focused right lower extremity exam.? Accompanied by her granddaughter bedside. VASCULAR: Dorsalis pedis palpable.? Posterior tibial arteries palpable.? Capillary refill time less than 3 seconds to the distal hallux bilaterally. Calf is supple and nontender proximally and distally.? Decreased pedal hair growth bilaterally.? Edema to the right medial forefoot. NEUROLOGICAL: Protective sensation intact to light touch. DERMATOLOGICAL:No erythema, warmth or drainage at this time to the right foot.? Incision is well coapted with sutures intact.? No dehiscence.? No periincisional erythema. MUSCULOSKELETAL: No tenderness to palpation right first metatarsal phalangeal joint, mild tenderness with range of motion.? No crepitus to soft tissue at the right foot. Discharge Data Studies Completed and Pending Completed Studies During Hospitalization Category Date Time Status CT foot RT w con [id number] Urgent Cat Scan 01/17/22 15:19 Completed XR foot RT 2V [id number] Urgent Exams 01/17/22 13:16 Completed MR foot RT wo/w con [id number] Urgent MRI 01/17/22 23:02 Completed Pending at discharge Category Date Time Status Blood Culture Stat Lab 01/17/22 15:17 Results Tissue Culture and Gram Stain Routine Lab 01/19/22 12:30 Results Pathology: Surgical [PTH] Routine Pth 01/19/22 13:06 Received Radiology Impressions Foot X-Ray 01/17/22 13:16 IMPRESSION: No acute findings. Foot CT 01/17/22 15:19 IMPRESSION: 1. Findings suspicious for an abscess with surrounding cellulitis/soft tissue infection virtually surrounding the head of the 1st metatarsal and the sesamoid bones in the right foot. Fluid also extends proximally along the extensive pollicis longus tendon to the level of the ankle, concerning for infected tenosynovitis. 2. Lysis on the under surface of the medial sesamoid bone. Possible osteomyelitis cannot be ruled out. Further evaluation with MRI of the the right foot without and with contrast may be obtained to further evaluate for osteomyelitis and possible septic arthritis. 3. Incidental/nonacute findings are listed in the report. ADDENDUM: 01/17/22 [id number] THIS REPORT CONTAINS FINDINGS THAT MAY BE CRITICAL TO PATIENT CARE. The findings were verbally communicated via telephone conference with MARTHA Waldron at 6:54 PM CDT on 01/17/2022. The findings were acknowledged and understood. Foot MRI 01/17/22 23:02 IMPRESSION: 1. Marked bursal distention surrounding the first metatarsal head with peripheral enhancement. Differential includes bursitis and septic joint. 2. Additional significant soft tissue enhancement involving the tendons surrounding the first metatarsal and toe. 3. Suspect tenosynovitis and possible abscess development within the extensor hallucis tendon. 4. Loss of the normal cortex along the plantar surface first metatarsal neck with abnormal adjacent soft tissue enhancement. Highly suspicious for superficial osteomyelitis. Laboratory Results WBC 9.1 10^3/uL (4.0-10.0) 01/22/22 06:25 RBC 3.40 10^6/uL (4.1-5.3) L 01/22/22 06:25 Hgb 9.6 g/dL (11.5-15.3) L 01/22/22 06:25 Hct 30.4 % (37.0-47.0) L 01/22/22 06:25 MCV 89.4 fl (81-99) D 01/22/22 06:25 MCH 28.2 pg (28.0-34.0) 01/22/22 06:25 MCHC 31.6 g/dL (30.0-36.0) D 01/22/22 06:25 RDW 14.8 % (12.1-15.1) 01/22/22 06:25 Plt Count 495 10^3/cmm (130-400) H 01/22/22 06:25 MPV 9.4 fL (7.4-10.4) 01/22/22 06:25 Neut % (Auto) 69.5 % 01/22/22 06:25 Lymph % (Auto) 19.1 % 01/22/22 06:25 [place] % (Auto) 6.8 % 01/22/22 06:25 Eos % (Auto) 0.1 % 01/22/22 06:25 Baso % (Auto) 0.2 % 01/22/22 06:25 Neut # (Auto) 6.34 10^3/uL (1.8-7.7) 01/22/22 06:25 Lymph # (Auto) 1.7 10^3/uL (0.8-4.8) 01/22/22 06:25 [place] # (Auto) 0.6 10^3/uL (0.2-0.9) 01/22/22 06:25 Eos # (Auto) 0.0 10^3/uL (0.0-0.8) 01/22/22 06:25 Baso # (Auto) 0.0 10^3/uL (0.0-0.1) 01/22/22 06:25 Nucleated RBC % (auto) 0.5 % 01/22/22 06:25 Nucleated RBCs # 0.1 /100WBC 01/22/22 06:25 ESR 27 mm/hr (0-15) H 01/17/22 15:12 Sodium 139 mmol/L (136-145) 01/22/22 06:25 Potassium 3.6 mmol/L (3.5-5.1) 01/22/22 06:25 Chloride 103 mmol/L (98-107) 01/22/22 06:25 Carbon Dioxide 25 mmol/L (22-29) 01/22/22 06:25 Anion Gap 14.6 (5-19) 01/22/22 06:25 BUN 20 mg/dL (8-23) 01/22/22 06:25 Creatinine 1.2 mg/dL (0.5-0.9) H 01/22/22 06:25 GFR Calculation 44.5 mL/min (90-130) L 01/22/22 06:25 Glucose 82 mg/dL (65-115) 01/22/22 06:25 Estimat Average Glucose 120 01/17/22 15:12 Hemoglobin A1c 5.8 % (4.0-6.0) 01/17/22 15:12 Calculated Osmolality 290 mOsm/kg (285-295) 01/22/22 06:25 Lactic Acid 1.0 mmol/L (0.5-2.2) 01/17/22 20:31 Uric Acid 8.5 mg/dL (2.4-5.7) H 01/17/22 15:12 Calcium 8.9 mg/dL (8.5-10.5) 01/22/22 06:25 Magnesium 2.0 mg/dL (1.7-2.3) 01/18/22 04:36 Total Bilirubin 0.2 mg/dL (0.15-1.2) 01/18/22 04:36 AST 25 U/L (0-32) 01/18/22 04:36 ALT 19 U/L (0-33) 01/18/22 04:36 Alkaline Phosphatase 73 IU/L (35-105) 01/18/22 04:36 C-Reactive Protein 79.7 mg/L (0.0-4.9) H 01/17/22 15:12 Total Protein 6.4 g/dL (6.6-8.7) L 01/18/22 04:36 Albumin 3.0 g/dL (3.5-5.2) L 01/18/22 04:36 Globulin 3.4 g/dL (1.3-4.6) 01/18/22 04:36 Fluid Crystals See path consult 01/17/22 21:00 Vancomycin Trough 12.9 ug/mL (10-15) 01/20/22 15:02 Vitals Last Vital Signs Temp 97.9 F 01/22/22 11:34 Pulse 67 01/22/22 11:34 Resp 16 01/22/22 11:34 BP 170/72 01/22/22 11:34 Pulse Ox 99 01/22/22 11:34 O2 Del Method 01/21/22 08:00 Discharge Plan Discharge Patient Disposition: Home Condition: Stable Prescriptions: New docusate sodium 100 mg Capsule 100 mg PO BID Qty: 60 0RF oxycodone-acetaminophen 7.5-325 mg tablet 1 tab PO Q8H PRN (Reason: pain) Qty: 20 0RF doxycycline hyclate 100 mg tablet 100 mg PO BID 10 Days Qty: 20 0RF prednisone 10 mg tablet 10 mg PO DAILY Qty: 7 0RF Rx Instructions: 30 mg for 2 days, 20 mg for 2 days, 10 mg for 1 day and then you can start 2.5 mg daily sennosides-docusate sodium [Senna-S] 8.6-50 mg tablet 1 tab-cap PO DAILY Qty: 30 0RF Continued prednisone 2.5 mg tablet 2.5 mg PO DAILY amitriptyline 25 mg tablet 25 mg PO BEDTIME oxycodone 10 mg tablet 10 - 20 mg PO QID PRN (Reason: pain) Linzess 290 mcg capsule 290 mcg PO DAILY Qty: 30 3RF Xeljanz 5 mg tablet 5 mg PO BID Qty: 60 3RF ondansetron HCl 4 mg tablet 4 mg PO TID PRN (Reason: nausea and vomiting) Qty: 20 0RF Changed amlodipine 2.5 mg tablet 10 mg PO DAILY Qty: 90 3RF Discharge Orders: Discharge Order (Routine); Ordered 01/22/22 Ordered By: Maximus Rinaldi Referrals: Carlos Manuel Her MD [Primary Care Provider] - Dc Begum DPM [Physician] - 01/27/22 1:00 pm Patient Instructions: Opioid Safety Activity Restrictions/Additional Instructions: Micro bone culture and pathology bone specimen reports are both pending. -Micro bone culture and pathology bone specimen reports are both pending. -Clinically much improved, no erythema or warmth, no edema to the right foot.? Right foot incision is well-healing with sutures intact. -Surgical culture showing staph species.? -Weightbearing as tolerated on the right foot, elevate right foot while resting. -Once daily dressing change gauze, Kerlix and Gary wrap.? Keep right foot clean and dry at all times. -Will continue to follow culture and sensitivities and make any necessary adjustments to antibiotic regimen outpatient, will follow-up in podiatry clinic this week 01/27/2022 at 1:00 PM. Discharge Attestations Time Spent in Discharge Care*: less than 30 min Quality Metrics Clinical Quality Measures [ No reported AMI, CVA or VTE this stay] Coding Level of Care Code Acute Chg FW DC note Diagnoses Cellulitis of foot, right L03.115 Right foot pain M79.671
--- NOTE | 2022-01-22 12:04 | PC.NURSE ---
Discussed discharge, medications and follow up appointments. Verbalize understanding.
--- NOTE | 2022-01-22 13:13 | PC.SOCIAL ---
IMM Update pg 2 of IMM updated and reviewed w/ patient. Copy provided. Copy in chart dated and initialed.
--- NOTE | 2022-01-26 10:38 | PC.NURSE ---
MEDIATIONS CLARIFIED WITH [facility] AND PATIENT UPDATED
== END 2022-01-22 13:47 | disposition home or self-care (01) | DRG 504 ==
LOC: ER 22:02 → MEDSURG 22:47
PROVIDERS: Physician Assistant; Podiatrist Foot & Ankle Surgery; Admitting Provider Internal Medicine; Emergency Provider Physician Assistant; PCP Internal Medicine; Visit Provider Internal Medicine
PROC: 0QBN0ZZ Excision of Right Metatarsal, Open Approach (ICD-10-PCS; principal; 2022-01-19 12:00)
DX: M00.071 Staphylococcal arthritis, right ankle and foot (principal); L02.611 Cutaneous abscess of right foot; L03.115 Cellulitis of right lower limb; M86.9 Osteomyelitis, unspecified; M10.9 Gout, unspecified; K75.4 Autoimmune hepatitis; Z79.52 Long term (current) use of systemic steroids; L40.0 Psoriasis vulgaris; F32.A Depression, unspecified; I12.9 Hypertensive chronic kidney disease with stage 1 through stage 4 chronic kidney disease, or unspecified chronic kidney disease; N18.9 Chronic kidney disease, unspecified; E78.5 Hyperlipidemia, unspecified; G62.9 Polyneuropathy, unspecified; Z87.891 Personal history of nicotine dependence; D63.1 Anemia in chronic kidney disease; Z79.891 Long term (current) use of opiate analgesic; B95.8 Unspecified staphylococcus as the cause of diseases classified elsewhere
CPT/HCPCS: 36415; 73620; 73701; 73720; 80048; 80053; 80202; 80503; 83036; 83605; 83735; 84550; 85025; 85651; 86140; 87040; 87070; 87075; 87077; 87176; 87186; 87205; 88307; 88311; 96365; 96372; 99285; A9577; J1100; J1644; J2270; J2405; J2543; J2704; J3010; J3370; J3490; J7030; J7040; J7050; J7512

== ENCOUNTER → 2022-01-26 15:20 | Outpatient (BNVA) | payer MEDICARE, SELFPAY | PROVIDERS: PCP Internal Medicine; Visit Provider Podiatrist Foot & Ankle Surgery | DX: Z98.890 Other specified postprocedural states (principal); T81.31XA Disruption of external operation (surgical) wound, not elsewhere classified, initial encounter; L03.115 Cellulitis of right lower limb; Y83.8 Other surgical procedures as the cause of abnormal reaction of the patient, or of later complication, without mention of misadventure at the time of the procedure | CPT/HCPCS: 99024; 99213; 99214 ==

== ENCOUNTER → 2022-02-01 13:41 | Outpatient (BNVA) | payer MEDICARE, SELFPAY | PROVIDERS: PCP Internal Medicine; Visit Provider Internal Medicine Rheumatology | DX: L40.50 Arthropathic psoriasis, unspecified (principal); Z79.899 Other long term (current) drug therapy; Z71.89 Other specified counseling; L40.0 Psoriasis vulgaris; M15.9 Polyosteoarthritis, unspecified | CPT/HCPCS: 99214 ==

== ENCOUNTER → 2022-02-03 12:32 | Outpatient (BNVA) | payer MEDICARE, SELFPAY | PROVIDERS: PCP Internal Medicine; Visit Provider Podiatrist Foot & Ankle Surgery | DX: Z98.890 Other specified postprocedural states (principal); T81.31XA Disruption of external operation (surgical) wound, not elsewhere classified, initial encounter; Y83.8 Other surgical procedures as the cause of abnormal reaction of the patient, or of later complication, without mention of misadventure at the time of the procedure; L03.115 Cellulitis of right lower limb | CPT/HCPCS: 99213 ==

== ENCOUNTER → 2022-02-09 14:30 | Outpatient (BNVA) | payer MEDICARE, SELFPAY | PROVIDERS: PCP Internal Medicine; Visit Provider Podiatrist Foot & Ankle Surgery | DX: L03.115 Cellulitis of right lower limb (principal); T81.31XA Disruption of external operation (surgical) wound, not elsewhere classified, initial encounter; Y83.8 Other surgical procedures as the cause of abnormal reaction of the patient, or of later complication, without mention of misadventure at the time of the procedure; Z98.890 Other specified postprocedural states | CPT/HCPCS: 80053; 85025; 85651; 86140; 99024; 99214 ==

== ENCOUNTER → 2022-02-23 13:13 | Outpatient (BNVA) | payer MEDICARE, SELFPAY | PROVIDERS: PCP Internal Medicine; Visit Provider Podiatrist Foot & Ankle Surgery | DX: L03.115 Cellulitis of right lower limb (principal); T81.31XA Disruption of external operation (surgical) wound, not elsewhere classified, initial encounter; Y83.8 Other surgical procedures as the cause of abnormal reaction of the patient, or of later complication, without mention of misadventure at the time of the procedure; Z98.890 Other specified postprocedural states | CPT/HCPCS: 73630; 99214 ==

== ENCOUNTER 2022-03-06 12:59 | Outpatient (CLI) | payer MEDICARE, SELFPAY ==
[2022-03-06 13:39] LABS: Basophils % 0.4 %; Eosinophils # 0.1 10^3/uL (0.0-0.8); Eosinophils % 1.7 %; Hematocrit 34.2 % (37.0-47.0); Hemoglobin 10.6 g/dL (11.5-15.3); Lymphocytes # 3.7 10^3/uL (0.8-4.8); Lymphocytes % 45.3 %; Mean Corpuscular Hemoglobin 27.6 pg (28.0-34.0); Mean Corpuscular Volume 89.1 fl (81-99); Mean Platelet Volume 9.5 fL (7.4-10.4); Monocytes # 0.5 10^3/uL (0.2-0.9); Monocytes % 6.2 %; Neutrophils # 3.79 10^3/uL (1.8-7.7); Neutrophils % 46.2 %; Nucleated Red Blood Cells % 0 %; Platelet Count 311 10^3/cmm (130-400); Red Blood Count 3.84 10^6/uL (4.1-5.3); Red Cell Distribution Width 12.5 % (12.1-15.1); White Blood Count 8.2 10^3/uL (4.0-10.0)
[2022-03-06 13:49] LABS: Erythrocyte Sedimentation Rate 26 mm/hr (0-15)
[2022-03-06 14:03] LABS: Alanine Aminotransferase 17 U/L (0-33); Albumin Level 3.8 g/dL (3.5-5.2); Alkaline Phosphatase 76 U/L (35-105); Anion Gap 13.8 (5-19); Aspartate Amino Transferase 25 U/L (0-32); Blood Urea Nitrogen 12 mg/dL (8-23); C Reactive Protein 3.1 mg/L (0.0-4.9); Calcium 8.7 mg/dL (8.5-10.5); Carbon Dioxide 27 mmol/L (22-29); Chloride 100 mmol/L (98-107); Globulin 3.3 g/dL (1.3-4.6); Glomerular Filtration Rate 49.2 mL/min (90-130); Glucose 144 mg/dL (65-115); Osmolality Calculated 286 mOsm/kg (285-295); Potassium 3.8 mmol/L (3.5-5.1); Sodium 137 mmol/L (136-145); Total Bilirubin 0.2 mg/dL (0.15-1.2); Total Protein 7.1 g/dL (6.6-8.7)
== END 2022-03-06 13:00 | disposition home or self-care (01) ==
LOC: LAB 13:01
PROVIDERS: PCP Internal Medicine; Visit Provider Podiatrist Foot & Ankle Surgery
DX: L03.115 Cellulitis of right lower limb (principal)
CPT/HCPCS: 80053; 85025; 85651; 86140

== ENCOUNTER → 2022-03-07 13:52 | Outpatient (BNVA) | payer MEDICARE, SELFPAY | PROVIDERS: PCP Internal Medicine; Visit Provider Podiatrist Foot & Ankle Surgery | DX: T81.31XA Disruption of external operation (surgical) wound, not elsewhere classified, initial encounter (principal); Y83.8 Other surgical procedures as the cause of abnormal reaction of the patient, or of later complication, without mention of misadventure at the time of the procedure; L03.115 Cellulitis of right lower limb; M10.9 Gout, unspecified | CPT/HCPCS: 73630; 99213; 99214 ==

== ENCOUNTER → 2022-03-28 14:34 | Outpatient (BNVA) | payer MEDICARE, SELFPAY | PROVIDERS: PCP Internal Medicine; Visit Provider Podiatrist Foot & Ankle Surgery | DX: T81.31XA Disruption of external operation (surgical) wound, not elsewhere classified, initial encounter (principal); Y83.8 Other surgical procedures as the cause of abnormal reaction of the patient, or of later complication, without mention of misadventure at the time of the procedure; L03.115 Cellulitis of right lower limb; M10.9 Gout, unspecified; Z98.890 Other specified postprocedural states | CPT/HCPCS: 73630; 99214 ==

== ENCOUNTER → 2022-05-08 13:06 | Outpatient (BNVA) | payer MEDICARE, SELFPAY | PROVIDERS: PCP Internal Medicine; Visit Provider Internal Medicine Rheumatology | DX: L40.50 Arthropathic psoriasis, unspecified (principal); Z79.899 Other long term (current) drug therapy; Z71.89 Other specified counseling; L40.0 Psoriasis vulgaris; Z86.19 Personal history of other infectious and parasitic diseases | CPT/HCPCS: 99214 ==

== ENCOUNTER → 2022-05-31 09:46 | Outpatient (BNVA) | payer MEDICARE, SELFPAY | PROVIDERS: PCP Internal Medicine; Visit Provider Podiatrist Foot & Ankle Surgery | DX: Z98.890 Other specified postprocedural states (principal); T81.31XA Disruption of external operation (surgical) wound, not elsewhere classified, initial encounter; Y83.3 Surgical operation with formation of external stoma as the cause of abnormal reaction of the patient, or of later complication, without mention of misadventure at the time of the procedure; M10.9 Gout, unspecified; L03.115 Cellulitis of right lower limb | CPT/HCPCS: 36415; 73630; 80053; 85025; 85651; 86140; 99214 ==

== ENCOUNTER → 2022-08-15 12:02 | Outpatient (BNVA) | payer MEDICARE, SELFPAY | PROVIDERS: Visit Provider Internal Medicine Rheumatology | DX: R05.9 Cough, unspecified (principal); L40.50 Arthropathic psoriasis, unspecified; Z79.899 Other long term (current) drug therapy; Z71.89 Other specified counseling | CPT/HCPCS: 71046; 99214 ==

== ENCOUNTER 2022-09-11 13:59 | Oncology outpatient (recurring) (ONCR) | payer MEDICARE, SELFPAY ==
[2022-09-11 14:43] VITALS: BMI 26.9
[2022-09-11 15:05] VITALS: BP 194/77; PULSE 70; RESP 16; TEMP 36.1; O2SAT 99
[2022-09-11] MEDS: acetaminophen 325 mg Tablet 650 MG PO (15:17)
[2022-09-11] MEDS: sodium chloride 0.9% 250 ML 75 ML IV (15:19)
[2022-09-11] MEDS: diphenhydrAMINE 50 mg/mL SDV 1mL 25 MG IVP (15:22)
[2022-09-11 15:24] LABS: Basophils % 0.3 %; Eosinophils # 0.2 10^3/uL (0.0-0.8); Eosinophils % 3.3 %; Hematocrit 35.7 % (37.0-47.0); Hemoglobin 11.3 g/dL (11.5-15.3); Mean Corpuscular HGB Conc 31.7 g/dL (30.0-36.0); Mean Corpuscular Hemoglobin 27.8 pg (28.0-34.0); Mean Corpuscular Volume 87.9 fl (81-99); Mean Platelet Volume 8.9 fL (7.4-10.4); Monocytes # 0.4 10^3/uL (0.2-0.9); Monocytes % 6.8 %; Neutrophils % 57.1 %; Nucleated Red Blood Cells % 0 %; Platelet Count 339 10^3/cmm (130-400); Red Blood Count 4.06 10^6/uL (4.1-5.3); Red Cell Distribution Width 13.2 % (12.1-15.1); White Blood Count 6.3 10^3/uL (4.0-10.0)
[2022-09-11 15:34] LABS: Alanine Aminotransferase 20 U/L (0-33); Albumin Level 4.1 g/dL (3.5-5.2); Alkaline Phosphatase 80 U/L (35-105); Aspartate Amino Transferase 25 U/L (0-32); C Reactive Protein 3.3 mg/L (0.0-4.9); Globulin 3.5 g/dL (1.3-4.6); Glomerular Filtration Rate 54.8 mL/min (90-130); Total Bilirubin 0.2 mg/dL (0.15-1.2); Total Protein 7.6 g/dL (6.6-8.7)
[2022-09-11] MEDS: abatacept 500 MG in sodium chloride 0.9% (100 ml) 100 ML 200 MG IV (15:40)
[2022-09-11 16:33] VITALS: BP 158/77; PULSE 69; RESP 16; TEMP 36.5; O2SAT 97
== END 2022-09-15 23:59 | disposition home or self-care (01) ==
PROVIDERS: Visit Provider Internal Medicine Rheumatology
DX: L40.50 Arthropathic psoriasis, unspecified (principal); Z79.899 Other long term (current) drug therapy
CPT/HCPCS: 80076; 82565; 85025; 86140; 96365; 96375; J0129; J1200; J2920; J7050

== ENCOUNTER 2022-10-09 13:30 | Oncology outpatient (recurring) (ONCR) | payer MEDICARE, SELFPAY ==
[2022-09-25 13:24] VITALS: BMI 26.5
[2022-09-25 13:48] VITALS: BP 169/75; PULSE 73; RESP 18; TEMP 36.6; O2SAT 99
[2022-09-25] MEDS: sodium chloride 0.9% 250 ML 75 ML IV (13:50)
[2022-09-25] MEDS: acetaminophen 325 mg Tablet 650 MG PO (13:54)
[2022-09-25] MEDS: diphenhydrAMINE 50 mg/mL SDV 1mL 25 MG IVP (13:54)
[2022-09-25] MEDS: abatacept 500 MG in sodium chloride 0.9% (100 ml) 100 ML 200 MG IV (14:11)
[2022-09-25 15:15] VITALS: BP 152/71; PULSE 70; RESP 16; TEMP 36.6; O2SAT 99
[2022-10-09] MEDS: acetaminophen 325 mg Tablet 650 MG PO (14:10)
[2022-10-09] MEDS: diphenhydrAMINE 50 mg/mL SDV 1mL 25 MG IVP (14:12)
[2022-10-09] MEDS: sodium chloride 0.9% 250 ML 75 ML IV (14:12)
[2022-10-09 14:22] VITALS: BP 127/92; PULSE 87; RESP 16; TEMP 37.1; O2SAT 97
[2022-10-09 14:27] LABS: Basophils % 0.3 %; Eosinophils # 0.1 10^3/uL (0.0-0.8); Eosinophils % 2.1 %; Hematocrit 34.9 % (37.0-47.0); Hemoglobin 10.9 g/dL (11.5-15.3); Lymphocytes # 2.4 10^3/uL (0.8-4.8); Lymphocytes % 35.9 %; Mean Corpuscular HGB Conc 31.2 g/dL (30.0-36.0); Mean Corpuscular Hemoglobin 27.3 pg (28.0-34.0); Mean Corpuscular Volume 87.5 fl (81-99); Mean Platelet Volume 9.1 fL (7.4-10.4); Monocytes # 0.5 10^3/uL (0.2-0.9); Neutrophils # 3.52 10^3/uL (1.8-7.7); Neutrophils % 53.4 %; Nucleated Red Blood Cells % 0 %; Platelet Count 274 10^3/cmm (130-400); Red Blood Count 3.99 10^6/uL (4.1-5.3); Red Cell Distribution Width 13.2 % (12.1-15.1); White Blood Count 6.6 10^3/uL (4.0-10.0)
[2022-10-09] MEDS: abatacept 500 MG in sodium chloride 0.9% (100 ml) 100 ML 200 MG IV (14:33)
[2022-10-09 14:42] LABS: Alanine Aminotransferase 16 U/L (0-33); Albumin Level 3.9 g/dL (3.5-5.2); Alkaline Phosphatase 74 U/L (35-105); Anion Gap 14.4 (5-19); Aspartate Amino Transferase 24 U/L (0-32); Blood Urea Nitrogen 18 mg/dL (8-23); Calcium 8.8 mg/dL (8.5-10.5); Carbon Dioxide 23 mmol/L (22-29); Chloride 97 mmol/L (98-107); Globulin 3.1 g/dL (1.3-4.6); Glomerular Filtration Rate 49.1 mL/min (90-130); Glucose 99 mg/dL (65-115); Osmolality Calculated 272 mOsm/kg (285-295); Potassium 4.4 mmol/L (3.5-5.1); Sodium 130 mmol/L (136-145); Total Bilirubin 0.2 mg/dL (0.15-1.2)
[2022-10-09 15:18] VITALS: BP 194/76; PULSE 90; RESP 18; TEMP 36.6; O2SAT 98
== END 2022-10-15 23:59 | disposition home or self-care (01) ==
PROVIDERS: Internal Medicine Gastroenterology; Visit Provider Internal Medicine Rheumatology
DX: L40.50 Arthropathic psoriasis, unspecified (principal); K75.4 Autoimmune hepatitis
CPT/HCPCS: 80053; 85025; 96375; 96413; J0129; J1200; J2920; J7050

== ENCOUNTER 2022-11-08 13:22 | Oncology outpatient (recurring) (ONCR) | payer MEDICARE, SELFPAY ==
[2022-11-08 13:53] VITALS: BP 148/69; PULSE 76; RESP 18; TEMP 37; O2SAT 98
[2022-11-08] MEDS: acetaminophen 325 mg Tablet 650 MG PO (14:08)
[2022-11-08] MEDS: sodium chloride 0.9% 250 ML 50 ML IV (14:08)
[2022-11-08] MEDS: diphenhydrAMINE 50 mg/mL SDV 1mL 25 MG IVP (14:09)
[2022-11-08] MEDS: dexamethasone 10 mg/mL INJ 6 MG IVP (14:12)
[2022-11-08] MEDS: abatacept 500 MG in sodium chloride 0.9% (100 ml) 100 ML 200 MG IV (14:18)
[2022-11-08 14:59] VITALS: BP 161/78; PULSE 76; RESP 18; TEMP 37.1; O2SAT 99
== END 2022-11-15 23:59 | disposition home or self-care (01) ==
PROVIDERS: Visit Provider Internal Medicine Rheumatology
DX: L40.50 Arthropathic psoriasis, unspecified (principal)
CPT/HCPCS: 96365; 96375; J0129; J1100; J1200; J7050

== ENCOUNTER → 2022-11-14 10:06 | Outpatient (BNVA) | payer MEDICARE, SELFPAY | PROVIDERS: Visit Provider Internal Medicine Rheumatology | DX: L40.50 Arthropathic psoriasis, unspecified (principal); Z79.899 Other long term (current) drug therapy; Z71.89 Other specified counseling | CPT/HCPCS: 99214 ==

== ENCOUNTER 2022-12-06 12:43 | Oncology outpatient (recurring) (ONCR) | payer MEDICARE, SELFPAY ==
[2022-12-06 14:26] VITALS: BP 149/73; PULSE 70; RESP 18; TEMP 36.7; O2SAT 99
[2022-12-06 14:27] LABS: Basophils % 0.3 %; Eosinophils # 0.1 10^3/uL (0.0-0.8); Eosinophils % 1.9 %; Hematocrit 37.6 % (37.0-47.0); Hemoglobin 11.7 g/dL (11.5-15.3); Lymphocytes % 35.3 %; Mean Corpuscular HGB Conc 31.1 g/dL (30.0-36.0); Mean Corpuscular Hemoglobin 26.5 pg (28.0-34.0); Mean Corpuscular Volume 85.1 fl (81-99); Mean Platelet Volume 9.1 fL (7.4-10.4); Monocytes # 0.5 10^3/uL (0.2-0.9); Neutrophils # 3.12 10^3/uL (1.8-7.7); Nucleated Red Blood Cells % 0 %; Platelet Count 282 10^3/cmm (130-400); Red Blood Count 4.42 10^6/uL (4.1-5.3); Red Cell Distribution Width 13.6 % (12.1-15.1); White Blood Count 5.8 10^3/uL (4.0-10.0)
[2022-12-06] MEDS: sodium chloride 0.9% 250 ML 75 ML IV (14:46)
[2022-12-06] MEDS: acetaminophen 325 mg Tablet 650 MG PO (14:47)
[2022-12-06] MEDS: dexamethasone 10 mg/mL INJ 6 MG IVP (14:49)
[2022-12-06] MEDS: diphenhydrAMINE 50 mg/mL SDV 1mL 25 MG IVP (14:55)
[2022-12-06 15:05] LABS: Alanine Aminotransferase 26 U/L (0-33); Albumin Level 3.7 g/dL (3.5-5.2); Alkaline Phosphatase 81 U/L (35-105); Aspartate Amino Transferase 39 U/L (0-32); Globulin 3.2 g/dL (1.3-4.6); Glomerular Filtration Rate 54.8 mL/min (90-130); Total Bilirubin 0.2 mg/dL (0.15-1.2); Total Protein 6.9 g/dL (6.6-8.7)
[2022-12-06] MEDS: abatacept 500 MG in sodium chloride 0.9% (100 ml) 100 ML 200 MG IV (15:07)
[2022-12-06 16:00] VITALS: BP 147/78; PULSE 87; RESP 18; TEMP 36.6; O2SAT 98
== END 2022-12-15 23:59 | disposition home or self-care (01) ==
PROVIDERS: Visit Provider Internal Medicine Rheumatology
DX: L40.50 Arthropathic psoriasis, unspecified (principal)
CPT/HCPCS: 80076; 82565; 85025; 86140; 96365; 96375; J0129; J1100; J1200; J7050

== ENCOUNTER 2023-01-03 13:31 | Oncology outpatient (recurring) (ONCR) | payer MEDICARE, SELFPAY ==
[2023-01-03 13:59] VITALS: PULSE 87; RESP 16; TEMP 36.4; O2SAT 97
[2023-01-03] MEDS: acetaminophen 325 mg Tablet 650 MG PO (14:23)
[2023-01-03] MEDS: sodium chloride 0.9% 250 ML 75 ML IV (14:37)
[2023-01-03] MEDS: diphenhydrAMINE 50 mg/mL SDV 1mL 25 MG IVP (14:38)
[2023-01-03] MEDS: methylPREDNISolone sod succ 40 mg/mL INJ IVP (14:49)
[2023-01-03] MEDS: abatacept 500 MG in sodium chloride 0.9% (100 ml) 100 ML 200 MG IV (15:07)
[2023-01-03 16:00] VITALS: BP 90/61; PULSE 76; RESP 16; TEMP 37.2; O2SAT 97
== END 2023-01-15 23:59 | disposition home or self-care (01) ==
PROVIDERS: Visit Provider Internal Medicine Rheumatology
DX: L40.50 Arthropathic psoriasis, unspecified (principal)
CPT/HCPCS: 96365; 96375; J0129; J1200; J2920; J7050

== ENCOUNTER 2023-01-31 13:49 | Oncology outpatient (recurring) (ONCR) | payer MEDICARE, MEDICAID, SELFPAY ==
[2023-01-31 14:50] VITALS: BP 200/86; PULSE 70; RESP 18; TEMP 37.7; O2SAT 98
[2023-01-31 15:04] LABS: Basophils % 0.5 %; Eosinophils # 0.1 10^3/uL (0.0-0.8); Eosinophils % 1.6 %; Hemoglobin 13.8 g/dL (11.5-15.3); Lymphocytes # 2.7 10^3/uL (0.8-4.8); Lymphocytes % 30.7 %; Mean Corpuscular HGB Conc 32.9 g/dL (30.0-36.0); Mean Corpuscular Hemoglobin 27.9 pg (28.0-34.0); Mean Corpuscular Volume 84.8 fl (81-99); Mean Platelet Volume 8.9 fL (7.4-10.4); Monocytes # 0.6 10^3/uL (0.2-0.9); Monocytes % 7.4 %; Neutrophils # 5.16 10^3/uL (1.8-7.7); Neutrophils % 59.3 %; Nucleated Red Blood Cells % 0 %; Platelet Count 316 10^3/cmm (130-400); Red Blood Count 4.95 10^6/uL (4.1-5.3); Red Cell Distribution Width 13.3 % (12.1-15.1); White Blood Count 8.7 10^3/uL (4.0-10.0)
[2023-01-31 15:06] LABS: Erythrocyte Sedimentation Rate 21 mm/hr (0-15)
[2023-01-31] MEDS: methylPREDNISolone sod succ 40 mg SDV IVP (15:13)
[2023-01-31] MEDS: acetaminophen 325 mg Tablet 650 MG PO (15:13)
[2023-01-31] MEDS: sodium chloride 0.9% 250 ML 75 ML IV (15:13)
[2023-01-31] MEDS: diphenhydrAMINE 50 mg/mL SDV 1mL 25 MG IVP (15:16)
[2023-01-31 15:18] VITALS: BMI 27.1
[2023-01-31 15:22] LABS: Alanine Aminotransferase 21 U/L (0-33); Albumin Level 4.2 g/dL (3.5-5.2); Alkaline Phosphatase 95 U/L (35-105); Aspartate Amino Transferase 30 U/L (0-32); Globulin 3.4 g/dL (1.3-4.6); Glomerular Filtration Rate 44.4 mL/min (90-130); Total Bilirubin 0.2 mg/dL (0.15-1.2); Total Protein 7.6 g/dL (6.6-8.7)
[2023-01-31] MEDS: abatacept 500 MG in sodium chloride 0.9% (100 ml) 100 ML 200 MG IV (15:24)
[2023-01-31 16:17] VITALS: BP 194/88; PULSE 74; RESP 18; TEMP 36.7; O2SAT 100
== END 2023-02-15 23:59 | disposition home or self-care (01) ==
PROVIDERS: PCP Family Medicine; Visit Provider Internal Medicine Rheumatology
DX: L40.50 Arthropathic psoriasis, unspecified (principal)
CPT/HCPCS: 80076; 82565; 85025; 85651; 96365; 96375; J0129; J1200; J2920; J7050

== ENCOUNTER → 2023-02-12 10:11 | Outpatient (BNVA) | payer MEDICARE, SELFPAY | PROVIDERS: PCP Family Medicine; Visit Provider Internal Medicine Rheumatology | DX: L40.50 Arthropathic psoriasis, unspecified (principal); Z79.899 Other long term (current) drug therapy; Z71.89 Other specified counseling | CPT/HCPCS: 99214 ==

== ENCOUNTER 2023-03-07 13:06 | Outpatient (CLI) | payer MEDICARE, SELFPAY ==
[2023-03-07 13:31] LABS: Basophils % 0.4 %; Eosinophils # 0.2 10^3/uL (0.0-0.8); Eosinophils % 2.3 %; Hematocrit 41.3 % (36-47); Lymphocytes # 4.2 10^3/uL (0.8-4.8); Lymphocytes % 39.4 %; Mean Corpuscular HGB Conc 33.2 g/dL (30-55); Mean Corpuscular Hemoglobin 28.5 pg (27-33); Mean Platelet Volume 9.3 fL (7.4-10.4); Monocytes # 0.6 10^3/uL (0.2-0.9); Monocytes % 5.4 %; Neutrophils # 5.58 10^3/uL (1.8-7.7); Neutrophils % 52.4 %; Nucleated Red Blood Cells % 0 %; Platelet Count 299 10^3/cmm (157-399); Red Cell Distribution Width 12.8 % (12.1-15.1); White Blood Count 10.65 10^3/uL (3.29-11.43)
[2023-03-07 14:20] LABS: Alanine Aminotransferase 18 U/L (0-33); Albumin Level 4.5 g/dL (3.5-5.2); Alkaline Phosphatase 104 U/L (35-105); Aspartate Amino Transferase 24 U/L (0-32); Blood Urea Nitrogen 43 mg/dL (8-23); Calcium 9.5 mg/dL (8.5-10.5); Carbon Dioxide 20 mmol/L (22-29); Chloride 101 mmol/L (98-107); Globulin 3.6 g/dL (1.3-4.6); Glucose 195 mg/dL (65-115); Osmolality Calculated 294 mOsm/kg (285-295); Sodium 134 mmol/L (136-145); Total Bilirubin 0.2 mg/dL (0.15-1.2); Total Protein 8.1 g/dL (6.6-8.7)
== END 2023-03-07 13:07 | disposition home or self-care (01) ==
PROVIDERS: PCP Family Medicine; Visit Provider Internal Medicine Gastroenterology
DX: K75.4 Autoimmune hepatitis (principal); Z79.899 Other long term (current) drug therapy
CPT/HCPCS: 36415; 80053; 85025

== ENCOUNTER 2023-03-21 11:49 | Outpatient (CLI) | payer MEDICARE, MEDICAID, SELFPAY ==
--- NOTE | 2023-03-21 12:30 | USCV_ITS ---
Usman Hilliard Age: 72 Gender: F : 1950 Exam Date: 03/21/2023 12:21 Ordering Phys: Grupo Schaefer DO Technologist: RADHA Exam Location: [facility] [place] Indication: BRUIT Risk Factors: Previous Vascular Surgery: Right Brachial BP: / Left Brachial BP: / Right Left Velocity (cm/s) Spectral Plaque Velocity (cm/s) Spectral Plaque Syst/Diast Broadening Syst/Diast Broadening 100.00/13.00 Prox CCA 96.10 / 16.70 93.70/ 9.90 Mid CCA 101.30/ 16.70 66.80/ 13.20 Distal CCA 82.00 / 17.90 115.00/21.10 Prox ICA 122.10/ 26.70 132.30/33.70 Mid ICA 131.50/ 25.70 117.90/21.40 Distal ICA 71.60 / 14.20 162.60 ECA 221.20 1.32 ICA/CCA 1.30 Antegrade Vertebral Antegrade 64.30/ 8.60 cm/s 64.80/ 10.50 cm/s Tri Subclavian Tri 196.0 290.4 0 0 CONCLUSIONS Right ICA stenosis <50%. Moderate atheromatous plaque right carotid bulb/ICA. Left ICA stenosis <50%. Moderate atheromatous plaque left carotid bulb/ICA. Intimal thickening in the common carotid arteries and internal carotid arteries bilaterally. Normal antegrade Doppler flow noted in the right vertebral artery. Normal antegrade Doppler flow noted in the left vertebral artery. Farhad Gomez MD (Electronically Signed) Final Date: 21 March 2023 16:48 S
--- NOTE | 2023-03-21 13:00 | XR_ITS ---
WS: [id number] SCREENING DEXA SCAN [employer] CLINICAL INFORMATION: M81.0 - Age-related osteoporosis without current patholog... COMPARISON: None. FINDINGS: The L1-L4 bone mineral density measures 1.267 g/cm2. This corresponds to a T score score of 0.7 and Z score of 2.4. Left femoral neck bone mineral density measures 1.040 g/cm2. This corresponds to a T score of 0.3 and Z score of 1.8. Right femoral neck bone mineral density measures 0.965 g/cm2. This corresponds to a T score -0.3of an d Z score of 1.2. Mean femoral neck bone mineral density measures 1.003 g/cm2. This corresponds to a T score of 0.0 and Z score of 1.5. IMPRESSION: Normal bone mineralization lumbar spine and femoral necks. Patient's FRAX calculated 10 year probability for major osteoporotic fracture is 24.3% and osteoporot ic hip fracture is 4.1%.
--- NOTE | 2023-03-21 13:05 | MM_ITS ---
WS: [id number] BILATERAL 3D TOMOSYNTHESIS DIGITAL SCREENING MAMMOGRAPHY WITH CAD CLINICAL INFORMATION: Z12.31 - Encounter for screening mammogram for malignant ... HISTORY: Screening mammogram. No current complaints. COMPARISON: 2009 TECHNIQUE: Bilateral CC and MLO views. FINDINGS: Scattered fibroglandular densities bilaterally. No suspicious focal mass, asymmetry, calcifications, or architectural distortion. No evidence of malignancy. Lucent centered calcifications LEFT breast. IMPRESSION: MM/[place] [id number] BI-RADS: 2-Benign FOLLOW UP: 1 Year Follow-up Recommend return to annual screening mammography.
== END 2023-03-21 11:50 | disposition home or self-care (01) ==
PROVIDERS: PCP Family Medicine; Visit Provider Family Medicine
DX: Z12.31 Encounter for screening mammogram for malignant neoplasm of breast (principal); Z13.820 Encounter for screening for osteoporosis; M81.0 Age-related osteoporosis without current pathological fracture; R09.89 Other specified symptoms and signs involving the circulatory and respiratory systems; I65.23 Occlusion and stenosis of bilateral carotid arteries
CPT/HCPCS: 77063; 77067; 77080; 93880

== ENCOUNTER → 2023-05-14 10:48 | Outpatient (BNVA) | payer MEDICARE, MEDICAID, SELFPAY | PROVIDERS: PCP Family Medicine; Visit Provider Internal Medicine Rheumatology | DX: L40.50 Arthropathic psoriasis, unspecified (principal); Z79.899 Other long term (current) drug therapy; Z71.89 Other specified counseling | CPT/HCPCS: 36415; 81001; 82565; 84520; 87077; 87086; 87186; 99214 ==

== ENCOUNTER → 2023-05-16 11:20 | Outpatient (BNVA) | payer MEDICARE, MEDICAID, SELFPAY | PROVIDERS: PCP Family Medicine; Visit Provider Family Medicine | DX: N18.32 Chronic kidney disease, stage 3b (principal); R63.4 Abnormal weight loss; R61 Generalized hyperhidrosis; K75.4 Autoimmune hepatitis; E83.52 Hypercalcemia | CPT/HCPCS: 80053; 82150; 82306; 82728; 83690; 84443; 85025; 85651; 86140; 86480 ==

== ENCOUNTER 2023-05-25 08:37 | Outpatient (CLI) | payer MEDICARE, MEDICAID, SELFPAY ==
--- NOTE | 2023-05-25 08:45 | US_ITS ---
WS: [id number] Complete ABDOMINAL ULTRASOUND HISTORY: Autoimmune hepatitis COMPARISON: 02/05/2018, 11/06/2019. Liver: 14.0 cm in length. Normal size liver and echogenicity. No bile duct dilatation or mass. Portal Vein: Normal hepatopetal flow with monophasic waveform. Gallbladder: Normally distended gallbladder with no stones or wall thickening. CBD: 1.0 cm; common bile duct is dilated. There is been progressive dilatation of the common bile debo t over the last several RIGHT upper quadrant examinations. The pancreatic head is completely obscured on this exam. Pancreas: Completely obscured pancreas. Right kidney: 8.8 cm x 4.1 x 4.4 cm. Cortex:1.0 cm. Mild atrophy and increased echogenicity. No mass or obstruction. Left kidney: 8.5 cm x 2.9 cm x 3.8 cm. Cortex: 1.0 cm. Mild atrophy and increased echogenicity. No mass or obstruction. Spleen: 9.6 cm in length. Normal. Aorta and IVC: Unremarkable abdominal aorta and IVC. Impression: 1. Normal appearance of the liver. 2. Dilated common bile duct. Common bile duct has continued to slowly increase in size over the sever al last ultrasound examinations. Etiology is undetermined. Consider evaluation by MRCP. 3. Nonvisualization of the pancreas. 4. Mild atrophy of each kidney and mild chronic medical renal disease.
== END 2023-05-25 08:38 | disposition home or self-care (01) ==
PROVIDERS: PCP Family Medicine; Visit Provider Family Medicine
DX: R63.4 Abnormal weight loss (principal); R61 Generalized hyperhidrosis; N18.30 Chronic kidney disease, stage 3 unspecified; K75.4 Autoimmune hepatitis
CPT/HCPCS: 76700

== ENCOUNTER 2023-06-01 07:42 | Oncology outpatient (recurring) (ONCR) | payer MEDICARE, MEDICAID, SELFPAY ==
[2023-06-01 08:00] VITALS: BP 146/66; PULSE 75; RESP 16; TEMP 36.3; O2SAT 99
[2023-06-01] MEDS: sodium chloride 0.9% 250 ML 75 ML IV (08:38)
[2023-06-01] MEDS: acetaminophen 325 mg Tablet 650 MG PO (08:38)
[2023-06-01] MEDS: diphenhydrAMINE 50 mg/mL SDV 1mL 25 MG IVP (08:38)
[2023-06-01] MEDS: methylPREDNISolone sod succ 40 mg/mL INJ IVP (08:39)
[2023-06-01] MEDS: abatacept 750 MG in sodium chloride 0.9% (100 ml) 100 ML 200 MG IV (09:14)
[2023-06-01 09:45] VITALS: BP 142/64; PULSE 71; RESP 16; TEMP 36.9; O2SAT 98
== END 2023-06-17 23:59 | disposition home or self-care (01) ==
PROVIDERS: PCP Family Medicine; Visit Provider Internal Medicine Rheumatology
DX: L40.50 Arthropathic psoriasis, unspecified (principal)
CPT/HCPCS: 96365; 96375; A4222; J0129; J1200; J2920; J7050

== ENCOUNTER 2023-06-15 06:02 | Observation (INO) | payer MEDICARE, MEDICAID, SELFPAY ==
[2023-06-15] VITALS (38 sets, daily range): BP systolic 85–171; BP diastolic 34–130; PULSE 34–83; RESP 14–29; TEMP 36.9–37.1; O2SAT 95–100; BMI 25.7
--- NOTE | 2023-06-15 06:22 | ECG_ITS ---
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 Measurements Intervals [place] Rate: 35 P: 59 [place]: 161 QRS: 58 QRSD: 86 T: 70 QT: 476 QTc: 368 Interpretive Statements SINUS BRADYCARDIA No previous ECG available for comparison Electronically Signed On 06-15-2023 14:56:02 GLASS SILVERER by Terence Gong M.D. [id number]
--- NOTE | 2023-06-15 06:22 | XRR_ITS ---
PROCEDURE INFORMATION: Exam: XR Chest Exam date and time: 06/15/2023 6:50 AM Age: 73 years old Clinical indication: Shortness of breath; Additional info: Bradycardia TECHNIQUE: Imaging protocol: Radiologic exam of the chest. Views: 1 view. COMPARISON: CR XR chest 2V* [id number] 08/15/2022 12:03 PM FINDINGS: Tubes, catheters and devices: Transcutaneous pacemaker pads overlie and obscures the lower left chest. Lungs: Unremarkable. No consolidation. Pleural spaces: Unremarkable. No pleural effusion. No pneumothorax. Heart/Mediastinum: Unremarkable. No cardiomegaly. Bones/joints: Degenerative changes noted. XR/XR chest 1V portable [id number] IMPRESSION: Support hardware in place. No acute cardiopulmonary disease.
[2023-06-15] MEDS: sodium chloride 0.9% 1,000 ML 999 ML IV (06:23)
--- NOTE | 2023-06-15 06:25 | ED.C_ITS ---
HPI - Psych 2 General: Chief Complaint: Chest Pain Stated Complaint: hallucinations Time Seen by Provider: 06/15/23 06:21 History of Present Illness: Patient presents to the ER with complaints of hallucinations. And just not feeling well. She said this all started last night. Patient states that she was feeling fine yesterday. Patient says she never had anything like this before. She was just recently treated for UTI by her primary care doctor. 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 Patient denies any alcohol or drug use. Patient says she is never had anything like this before. Review of Systems 2 General: Reports: 10 or more systems reviewed and unremarkable except in HPI and below PFSH ED 2 PFSH: Medical History Psoriatic arthritis Gouty arthritis Cellulitis of right foot Right foot pain Abscess of right foot Cellulitis of foot, right Dizziness Pre-syncope Insomnia Autoimmune hepatitis Plaque psoriasis Dysfunctional gallbladder Inflammatory arthritis Psoriasis Encounter for screening for other viral diseases High risk medication use Immunization counseling Psoriatic arthritis Essential (primary) hypertension Peripheral neuropathy Hyperlipemia Depression Surgical History History of appendectomy History of section History of carpal tunnel surgery Family History Mother Cancer Other Aneurysm COPD (chronic obstructive pulmonary disease) Social History Smoking and tobacco/nicotine status: never used tobacco/nicotine Alcohol intake: former Current gender identity: Female Physical Exam 2 Const: COMMON NORMALS: no acute distress, average body habitus, patient oriented x3, no limitations, healthy appearing, alert and well nourished HENMT: COMMON NORMALS: normocephalic, atraumatic, hearing grossly normal bilaterally, external ears normal, Normal external nose present, moist oral mucous membranes and oropharynx normal HEAD & SCALP: normocephalic and atraumatic NOSE: Normal external nose present EXTERNAL EAR: Yes external ears normal Eye: COMMON NORMALS: Equal, round and reactive pupils present, EOMs intact bilaterally, conjunctivae normal and no scleral icterus CONJUNCTIVA: Yes conjunctivae normal PUPIL: Yes Equal, round and reactive pupils present Neck/C-Spine: COMMON NORMALS: full ROM, no lymphadenopathy, supple, no meningeal signs and no JVD Chest: COMMONS NORMALS: normal inspection of the chest and normal palpation of entire chest wall Resp: COMMON NORMALS: normal respiratory effort, No retractions, No use of accessory muscles and clear to auscultation bilaterally AUSCULTATION: clear to auscultation bilaterally Cardio: COMMON NORMALS: no JVD, regular rhythm, S1 normal heart sound present, S2 normal heart sound present, No gallops present (Cardio), No clicks present (Cardio), No murmurs present (Cardio) and No rub (Cardio); negative for regular rate (Bradycardia) RATE: abnormal rate (Bradycardia) RHYTHM: regular rhythm HEART SOUNDS: S1 normal heart sound present and S2 normal heart sound present GI: COMMON NORMALS: Normal to inspection, nondistended, normoactive bowel sounds present, Soft to palpation, non-tender, No hepatosplenomegaly present and no masses PALPATION: Yes Soft to palpation and Yes No hepatosplenomegaly present Extremity: NARRATIVE EXTREMITY EXAM: Negative edema bilateral lower extremities Neuro: COMMON NORMALS: patient oriented x3 SENSORIUM/ORIENTATION: Yes alert MENINGEAL SIGNS: Yes no meningeal signs Course 2 Vital Signs: Vital signs: Vital Signs Temperature 98.5 F 06/15/23 06:07 Pulse Rate 36 L 06/15/23 07:05 Respiratory Rate 16 06/15/23 07:05 Blood Pressure 90/56 06/15/23 07:05 Pulse Oximetry 97 06/15/23 07:05 Oxygen Delivery Me thod Room Air 06/15/23 06:07 [facility] - Psych Medical Decision Making Patient presents with hallucinations last night and significant bradycardia and hypotension. EKG showed sinus bradycardia. Patient was given a 1 L bolus of normal saline and her blood pressure was raised up to 95/50. Patient is alert and oriented with no complaints at this time. Lab work was essentially unremarkable for the patient however patient did have mild hyponatremia at 128 and improved but elevated BUN/creatinine at [address] Dietz was consulted who agreed to place patient in ICU for further evaluation and treatment. Dr. Cerrato was consulted and has agreed to see the patient. We will get a bladder scan, upright abdominal x-ray, and admit the patient to ICU. Medical Records I reviewed the patient's medical records. Lab Data I reviewed the patient's lab results. 06/15/23 06:21 06/15/23 06:21 Laboratory Results WBC 9.65 10^3/uL (3.29-11.43) 06/15/23 06:21 RBC 4.02 10^6/uL (3.85-5.65) 06/15/23 06:21 Hgb 11.40 g/dL (11.27-16.99) 06/15/23 06:21 Hct 35.3 % (36-47) L 06/15/23 06:21 MCV 87.8 fl (85-98) 06/15/23 06:21 MCH 28.4 pg (27-33) 06/15/23 06:21 MCHC 32.3 g/dL (30-55) 06/15/23 06:21 RDW 12.9 % (12.1-15.1) 06/15/23 06:21 Plt Count 332 10^3/cmm (157-399) 06/15/23 06:21 MPV 9.0 fL (7.4-10.4) 06/15/23 06:21 Neut % (Auto) 56.1 % 06/15/23 06:21 Lymph % (Auto) 34.7 % 06/15/23 06:21 [place] % (Auto) 6.0 % 06/15/23 06:21 Eos % (Auto) 2.6 % 06/15/23 06:21 Baso % (Auto) 0.4 % 06/15/23 06:21 Neut # (Auto) 5.41 10^3/uL (1.8-7.7) 06/15/23 06:21 Lymph # (Auto) 3.4 10^3/uL (0.8-4.8) 06/15/23 06:21 [place] # (Auto) 0.6 10^3/uL (0.2-0.9) 06/15/23 06:21 Eos # (Auto) 0.3 10^3/uL (0.0-0.8) 06/15/23 06:21 Baso # (Auto) 0.0 10^3/uL (0.0-0.1) 06/15/23 06:21 Nucleated RBC % (auto) 0 % 06/15/23 06:21 Nucleated RBCs # 0.0 /100WBC 06/15/23 06:21 PT 13.10 SECONDS (12.1-14.9) 06/15/23 06:21 INR 0.96 (0.8-1.2) 06/15/23 06:21 Sodium 128 mmol/L (136-145) L 06/15/23 06:21 Potassium 4.9 mmol/L (3.5-5.1) 06/15/23 06:21 Chloride 96 mmol/L (98-107) L 06/15/23 06:21 Carbon Dioxide 21 mmol/L (22-29) L 06/15/23 06:21 Anion Gap 15.9 (5-19) 06/15/23 06:21 BUN 25 mg/dL (8-23) H 06/15/23 06:21 Creatinine 1.4 mg/dL (0.5-0.9) H 06/15/23 06:21 GFR Calculation Not Reportable 06/15/23 06:21 Glucose 139 mg/dL (65-115) H 06/15/23 06:21 Calculated Osmolality 273 mOsm/kg (285-295) L 06/15/23 06:21 Calcium 9.3 mg/dL (8.5-10.5) 06/15/23 06:21 Magnesium 1.9 mg/dL (1.7-2.3) 06/15/23 06:21 Total Bilirubin 0.4 mg/dL (0.15-1.2) 06/15/23 06:21 AST 13 U/L (0-32) 06/15/23 06:21 ALT 9 U/L (0-33) 06/15/23 06:21 Alkaline Phosphatase 90 U/L (35-105) 06/15/23 06:21 Troponin T Baseline 12 ng/L (0-10) H 06/15/23 06:21 Total Protein 7.0 g/dL (6.6-8.7) 06/15/23 06:21 Albumin 3.7 g/dL (3.5-5.2) 06/15/23 06:21 Globulin 3.3 g/dL (1.3-4.6) 06/15/23 06:21 TSH 0.64 uIU/mL (0.27-4.20) 06/15/23 06:21 Urine Color Yellow (Yellow) 06/15/23 06:45 Urine Appearance Clear (CLEAR) 06/15/23 06:45 Urine pH 7 (5-7) 06/15/23 06:45 Ur Specific [place] 1.010 (1.005-1.030) 06/15/23 06:45 Urine Protein Neg (Negative) 06/15/23 06:45 Urine Glucose (UA) Norm (Normal) 06/15/23 06:45 Urine Ketones Negative (Negative) 06/15/23 06:45 Urine Blood Neg (Negative) 06/15/23 06:45 Urine Nitrate Negative (Negative) 06/15/23 06:45 Urine Bilirubin Neg (Negative) 06/15/23 06:45 Urine Urobilinogen Norm mg/dL (Negative) 06/15/23 06:45 Ur Leukocyte Esterase Negative (Negative) 06/15/23 06:45 Urine Opiates Screen Negative ng/mL (Negative) 06/15/23 06:45 Ur Barbiturates Screen Negative ng/mL (Negative) 06/15/23 06:45 Ur Phencyclidine Scrn Negative ng/mL (Negative) 06/15/23 06:45 Ur Amphetamines Screen Negative ng/mL (Negative) 06/15/23 06:45 U Benzodiazepines Scrn Negative ng/mL (Negative) 06/15/23 06:45 Urine Cocaine Screen Negative ng/mL (Negative) 06/15/23 06:45 U Marijuana (THC) Screen Negative ng/mL (Negative) 06/15/23 06:45 All radiology interpretation(s) finalized by discharge Discharge Plan Discharge Condition: Stable Prescriptions: No Action oxycodone 10 mg tablet 10 - 20 mg PO QID PRN (Reason: pain) abatacept (with maltose) [Orencia (with maltose)] See Rx Instructions .ROUTE .COMPLEX Rx Instructions: intravenously as directed lisinopril 30 mg tablet 30 mg PO DAILY Qty: 90 3RF amitriptyline 50 mg tablet 50 mg PO BEDTIME Qty: 30 2RF tizanidine 4 mg capsule 4 mg PO BID PRN (Reason: Muscle Spasm) ondansetron 4 mg tablet,disintegrating 4 mg PO Q8H PRN (Reason: nausea and vomiting) Qty: 60 5RF cholecalciferol (vitamin D3) 1,250 mcg (50,000 unit) capsule 50,000 unit PO .once weekly Qty: 12 0RF docusate sodium 100 mg Capsule 100 mg PO BID Qty: 60 0RF amlodipine 10 mg tablet 10 mg PO QPM Linzess 290 mcg capsule 290 mcg PO QPM prednisone 2.5 mg tablet 2.5 mg PO QPM Referrals: Grupo Schaefer DO [Primary Care Provider] - Coding Level of Care Code ED Staff Development Educator for Yasemin Jay
[2023-06-15 06:36] LABS: Basophils % 0.4 %; Eosinophils # 0.3 10^3/uL (0.0-0.8); Eosinophils % 2.6 %; Hematocrit 35.3 % (36-47); Lymphocytes # 3.4 10^3/uL (0.8-4.8); Lymphocytes % 34.7 %; Mean Corpuscular HGB Conc 32.3 g/dL (30-55); Mean Corpuscular Hemoglobin 28.4 pg (27-33); Mean Corpuscular Volume 87.8 fl (85-98); Monocytes # 0.6 10^3/uL (0.2-0.9); Neutrophils # 5.41 10^3/uL (1.8-7.7); Neutrophils % 56.1 %; Nucleated Red Blood Cells % 0 %; Platelet Count 332 10^3/cmm (157-399); Red Blood Count 4.02 10^6/uL (3.85-5.65); Red Cell Distribution Width 12.9 % (12.1-15.1); White Blood Count 9.65 10^3/uL (3.29-11.43)
[2023-06-15 06:50] LABS: INR 0.96 (0.8-1.2)
[2023-06-15 06:52] LABS: Troponin(5th) Baseline 12 ng/L (0-10)
[2023-06-15 06:54] LABS: Add Urine Microscopic? NO; Charge for UA Resulting for Rev
[2023-06-15 06:55] LABS: Alanine Aminotransferase 9 U/L (0-33); Albumin Level 3.7 g/dL (3.5-5.2); Alkaline Phosphatase 90 U/L (35-105); Anion Gap 15.9 (5-19); Aspartate Amino Transferase 13 U/L (0-32); Blood Urea Nitrogen 25 mg/dL (8-23); Calcium 9.3 mg/dL (8.5-10.5); Carbon Dioxide 21 mmol/L (22-29); Chloride 96 mmol/L (98-107); Globulin 3.3 g/dL (1.3-4.6); Glucose 139 mg/dL (65-115); Magnesium 1.9 mg/dL (1.7-2.3); Osmolality Calculated 273 mOsm/kg (285-295); Potassium 4.9 mmol/L (3.5-5.1); Sodium 128 mmol/L (136-145); Total Bilirubin 0.4 mg/dL (0.15-1.2)
[2023-06-15 06:56] LABS: Bilirubin Urine Neg (Negative); Blood Urine Neg (Negative); Glucose Urine UA Norm (Normal); Ketones Urine Negative (Negative); Leukocyte Esterase Urine Negative (Negative); Nitrate Urine Negative (Negative); Protein Urine Neg (Negative); Urine Appearance Clear (CLEAR); Urine Color Yellow (Yellow); Urobilinogen Urine Norm (Negative); pH Urine 7 (5-7)
[2023-06-15 07:01] LABS: Thyroid Stimulating Hormone 0.64 uIU/mL (0.27-4.20)
[2023-06-15 07:04] LABS: Amphetamines Screen Urine Negative (Negative); Barbiturates Screen Urine Negative (Negative); Benzodiazepines Screen Urine Negative (Negative); Cocaine Screen Urine Negative (Negative); Opiate Screen Urine Negative (Negative); PCP Screen Urine Negative (Negative); THC Screen Urine Negative (Negative)
--- NOTE | 2023-06-15 08:02 | ECG_ITS ---
[facility] Test Date: 2023-06-15 Pat Name: Usman Hilliard Department: Room: Gender: Female Distribution Superintendent: : 1950 Requested By: Hay Leon Order Number: [id number] Arnold MD: Terence Gong M.D. Measurements Intervals [place] Rate: 33 P: 110 FL: 169 QRS: 125 QRSD: 79 T: 114 QT: 482 QTc: 362 Interpretive Statements SINUS BRADYCARDIA ARM LEADS REVERSED [INVERTED P AND QRS IN I] Compared to ECG 06/15/2023 06:33:31 No significant changes Electronically Signed On 06-15-2023 15:40:30 CLINICAL NURSE REVIEWER by Terence Gong M.D. [email or web address]
--- NOTE | 2023-06-15 08:05 | XRR_ITS ---
PROCEDURE INFORMATION: Exam: XR Abdomen Exam date and time: 06/15/2023 8:15 AM Age: 73 years old Clinical indication: Abdominal pain; Generalized; Additional info: Bradycardia, ckd, , upright abdomen per Dr sanches TECHNIQUE: Imaging protocol: Radiologic exam of the abdomen. Views: Frontal supine view of the abdomen. 1 View. COMPARISON: US abdomen complete* [id number] 05/25/2023 8:49 AM FINDINGS: The study is limited as the images somewhat overpenetrated and there is exclusion of the lower abdomen and pelvis from the field. Tubes, catheters and devices: Transcutaneous pacemaker pads overlie the left lung base and upper quadrant of the abdomen. Gastrointestinal tract: The bowel gas pattern is nonspecific. Bones/joints: Degenerative changes are noted in the bones. XR/XR abdomen 1V* [id number] IMPRESSION: Limited study. Nonspecific bowel gas pattern.
[2023-06-15] MEDS: sodium chloride 0.9% 1,000 ML 100 ML IV ×2 (08:37→19:50)
[2023-06-15 08:45] LABS: Troponin 5 2HR 12.01 ng/L (0-10); Troponin 5 2HR Delta 0.01 ABS# (0-10)
--- NOTE | 2023-06-15 09:08 | P.HP_ITS ---
Documented by User: dru Juarez 06/15/23 09:55 Providers/Chief Complaint 2 Admitting Physician: Memo Dietz MD Primary Care Provider: Grupo Schaefer DO Chief Complaint: hallucinations History of Present Illness Patient is a 73-year-old female with a past medical history of CKD, IBS, carotid bruits, hypertension, neuropathy who presents the emergency room with acute onset of confusion and hallucinations. Patient will be admitted to the hospital for further medical management of bradycardia. Patient reports last night that she started having increased confusion as well as hallucinations while lying in bed. States that she started seeing trees in her room as well as her quilt turning different colors. Did report that whenever she stood up and went to the bathroom, she developed dizziness and lightheadedness while ambulating. Denies any previous history of this occurrence or any noted profound bradycardia that was found today. Does report some slight shortness of breath in nature though not acute. She denies any fevers, chills, or chest discomfort. States that she was recently treated for a urinary tract infection and completed antibiotic regimen but still feels as though she is not able to fully empty her bladder at this time. Does report some diarrhea and abdominal pain which is chronic in nature but denies any straining. Denies any acute pain at this time but does report chronic pain of neuropathy that is supplemented with narcotics. While in the emergency room, laboratory studies and radiology imaging were performed and discussed below. Patient received 1 L NS bolus. Review of Systems 2 Narrative: Comprehensive 10 point ROS is negative except as noted in the HPI above. Medications/Allergies Home Medications Medication Instructions Recorded Confirmed Last Taken Type oxycodone 10 mg tablet 10 - 20 mg PO QID PRN pain 07/28/20 06/15/23 06/15/23 History docusate sodium 100 mg capsule 100 mg PO BID #60 caps 01/22/22 06/15/23 06/14/23 Rx abatacept (with maltose) [Orencia See Rx Instructions .Route .COMPLEX 02/12/23 06/15/23 05/25/23 History (with maltose)] lisinopril 30 mg tablet 30 mg PO DAILY #90 tabs 02/15/23 06/15/23 06/14/23 Rx amitriptyline 50 mg tablet 50 mg PO BEDTIME #30 tabs 1106/15/23 06/14/23 Rx cholecalciferol (vitamin D3) 1,250 50,000 unit PO .once weekly #12 05/22/23 06/15/23 Unknown Rx mcg (50,000 unit) capsule caps ondansetron 4 mg disintegrating 4 mg PO Q8H PRN nausea and 05/28/23 06/15/23 Unknown Rx tablet vomiting #60 tabs tizanidine 4 mg capsule 4 mg PO BID PRN Muscle Spasm 05/28/23 06/15/23 Unknown History amlodipine 10 mg tablet 10 mg PO QPM 06/15/23 06/15/23 06/14/23 History linaclotide 290 mcg capsule 290 mcg PO QPM 06/15/23 06/15/23 06/14/23 History (Linzess) prednisone 2.5 mg tablet 2.5 mg PO QPM 06/15/23 06/15/23 06/14/23 History Allergies Allergy/AdvReac Type Severity Reaction Status Date / Time codeine Allergy Mild Unknown Verified 06/15/23 06:23 isosorbide Allergy Mild Unknown Verified 06/15/23 06:23 latex Allergy ALGY-Rash Verified 06/15/23 06:23 leflunomide AdvReac Mild nausea and Verified 06/15/23 06:23 vomiting azathioprine [From Imuran] AdvReac Unknown ADR-Vomitin Verified 06/15/23 06:23 g PFSH Acute 2 PFSH: Medical History Psoriatic arthritis Gouty arthritis Cellulitis of right foot Right foot pain Abscess of right foot Cellulitis of foot, right Dizziness Pre-syncope Insomnia Autoimmune hepatitis Plaque psoriasis Dysfunctional gallbladder Inflammatory arthritis Psoriasis Encounter for screening for other viral diseases High risk medication use Immunization counseling Psoriatic arthritis Essential (primary) hypertension Peripheral neuropathy Hyperlipemia Depression Surgical History History of appendectomy History of section History of carpal tunnel surgery Family History Mother Cancer Other Aneurysm COPD (chronic obstructive pulmonary disease) Social History Smoking and tobacco/nicotine status: never used tobacco/nicotine Alcohol intake: former Current gender identity: Female Vitals/I&O/Wt Last Vital Signs Temp 98.5 F 06/15/23 06:07 Pulse 34 L 06/15/23 08:39 Resp 16 06/15/23 08:39 BP 85/47 06/15/23 08:39 Pulse Ox 99 06/15/23 07:54 O2 Del Method Room Air 06/15/23 06:07 06/14/23 06/15/23 06/15/23 22:59 06:59 14:59 Intake Total 1000 / 1000 Balance 1000 / 1000 Weight last 48 hrs Weight 61.689 kg Physical Exam 2 Narrative: General: Alert, able to answer questions appropriately, pleasant HEENT: Dry mucous membranes, normocephalic Neck: Supple Lymph: No lymphadenopathy noted Chest: Normal to inspection, even rise and fall. Respiratory: Nonlabored respirations, clear lung sounds per auscultation throughout Cardio: Bradycardia(30's), distant heart tones, no murmur, no edema throughout GI: Active bowel sounds per auscultation, obese : Morton cath in place, clear urine in tubing. Neuro: Alert and oriented x 4, able to answer questions appropriately Urinary Catheter Management: Morton: Cath Placed During This Visit: yes Urinary Catheter Date of Insertion: 06/15/23 Data 06/15/23 06:21 06/15/23 06:21 Other Labs: Sodium 128, BUN 25, creatinine 1.4, troponin baseline 12, 2-hour post troponin 12, Negative urine drug screen CXR: My impression: Per my interpretation, no acute findings. Defibrillation pads in place Radiologist's impression: No acute cardiopulmonary disease. KUB: My impression: Noted stool and right lower quadrant. Radiologist's impression: No acute findings EKG 1: My Interpretation: Per my interpretation, sinus bradycardia rate 35, inverted T waves noted in V1 and V2. EKG computer-generated impression: Sinus bradycardia, EKG 2: My Interpretation: Per my interpretation, sinus bradycardia rate 33, no ST changes, EKG computer-generated impression: Sinus bradycardia A&P Assessment and plan (1) Bradycardia: Patient noted to be found with profound bradycardia with a heart rate of 30s while in emergency room. This could be multifactorial potentially due to medication usage, vasovagal, or other etiology. EKGs were performed while in the emergency room and discussed above. Patient reports chronic abdominal pain and states does have diarrhea, but denies straining though increased confusion and hallucinations could potentially could have fogged patient's memory. Will obtain CT abdomen pelvis with and without contrast for further evaluation We will hold patient's home medications of amlodipine, lisinopril and amitriptyline until further evaluation. Echocardiogram Cardiology consultation Telemetry N.p.o. CBC, CMP, magnesium in AM. Atropine 0.4mg IV push as needed at bedside for heart rate less than 40. Normal saline at 100 mL/h. (2) Essential hypertension: Noted to be hypotensive at this time. We will hold home medications of amlodipine and lisinopril IV hydration (3) CKD (chronic kidney disease) stage 3, GFR 30-59 ml/min: Elevated BUN. Creatinine noted to be slightly elevated which seems to be consistent with previous creatinine levels and history of chronic kidney disease. Continue to monitor labs. CMP in a.m. Morton cath in place for urinary retention. Qualifiers: Chronic kidney disease stage 3 subtype: stage 3b (GFR 30-44) Qualified Code(s): N18.32 - Chronic kidney disease, stage 3b (4) Peripheral neuropathy: Stable at this time. Patient states that she takes home oxycodone as needed. Plan Plan as stated above. Cardiology consultation. We will obtain an echocardiogram as well as CT abdominal pelvis with contrast and without contrast to further evaluate. Will hold home medications due to profound bradycardia and hypotension. IV hydration. Monitor labs in AM. Atropine at bedside. CODE STATUS: Full code. In the event patient is unable to make decisions for herself, Ruchi daughter, will make decisions for her. DVT prophylaxis: Heparin. Coding Level of Care Code Critical Care >/= 30 minutes Diagnoses Bradycardia R00.1 Essential hypertension I10 Stage 3b chronic kidney disease N18.32 Chronic kidney disease stage 3 subtype: stage 3b (GFR 30-44) Peripheral neuropathy G62.9 Documented by User: Memo Dietz MD 06/15/23 10:16 Providers/Chief Complaint 2 Chief Complaint: hallucinations History of Present Illness Patient is a 73-year-old female with a past medical history of CKD, IBS, carotid bruits, hypertension, neuropathy who presents the emergency room with acute onset of confusion and hallucinations. Patient will be admitted to the hospital for further medical management of bradycardia. Patient reports last night that she started having increased confusion as well as hallucinations while lying in bed. States that she started seeing trees in her room as well as her quilt turning different colors. Did report that whenever she stood up and went to the bathroom, she developed dizziness and lightheadedness while ambulating. Denies any previous history of this occurrence or any noted profound bradycardia that was found today. Does report some slight shortness of breath in nature though not acute. She denies any fevers, chills, or chest discomfort. States that she was recently treated for a urinary tract infection and completed antibiotic regimen but still feels as though she is not able to fully empty her bladder at this time. Does report some diarrhea and abdominal pain which is chronic in nature but denies any straining. Denies any acute pain at this time but does report chronic pain of neuropathy that is supplemented with narcotics. Some nausea. No fever. No recent respiratory illness. No significant change in medications. While in the emergency room, laboratory studies and radiology imaging were performed and discussed below. Patient received 1 L NS bolus. Review of Systems 2 Card: Denies: chest pain Resp: Denies: dyspnea GI: Reports: abdominal pain and nausea; Denies: vomiting, hematochezia or melena Medications/Allergies Home Medications Medication Instructions Recorded Confirmed Last Taken Type oxycodone 10 mg tablet 10 - 20 mg PO QID PRN pain 07/28/20 06/15/23 06/15/23 History docusate sodium 100 mg capsule 100 mg PO BID #60 caps 01/22/22 06/15/23 06/14/23 Rx abatacept (with maltose) [Orencia See Rx Instructions .Route .COMPLEX 02/12/23 06/15/23 05/25/23 History (with maltose)] lisinopril 30 mg tablet 30 mg PO DAILY #90 tabs 02/15/23 06/15/23 06/14/23 Rx amitriptyline 50 mg tablet 50 mg PO BEDTIME #30 tabs 05/16/23 06/15/23 06/14/23 Rx cholecalciferol (vitamin D3) 1,250 50,000 unit PO .once weekly #12 05/22/23 06/15/23 Unknown Rx mcg (50,000 unit) capsule caps ondansetron 4 mg disintegrating 4 mg PO Q8H PRN nausea and 05/28/23 06/15/23 Unknown Rx tablet vomiting #60 tabs tizanidine 4 mg capsule 4 mg PO BID PRN Muscle Spasm 05/28/23 06/15/23 Unknown History amlodipine 10 mg tablet 10 mg PO QPM 06/15/23 06/15/23 06/14/23 History linaclotide 290 mcg capsule 290 mcg PO QPM 06/15/23 06/15/23 06/14/23 History (Linzess) prednisone 2.5 mg tablet 2.5 mg PO QPM 06/15/23 06/15/23 06/14/23 History Allergies Allergy/AdvReac Type Severity Reaction Status Date / Time codeine Allergy Mild Unknown Verified 06/15/23 06:23 isosorbide Allergy Mild Unknown Verified 06/15/23 06:23 latex Allergy ALGY-Rash Verified 06/15/23 06:23 leflunomide AdvReac Mild nausea and Verified 06/15/23 06:23 vomiting azathioprine [From Imuran] AdvReac Unknown ADR-Vomitin Verified 06/15/23 06:23 g PFSH Acute 2 PFSH: Medical History Psoriatic arthritis Gouty arthritis Cellulitis of right foot Right foot pain Abscess of right foot Cellulitis of foot, right Dizziness Pre-syncope Insomnia Autoimmune hepatitis Plaque psoriasis Dysfunctional gallbladder Inflammatory arthritis Psoriasis Encounter for screening for other viral diseases High risk medication use Immunization counseling Psoriatic arthritis Essential (primary) hypertension Peripheral neuropathy Hyperlipemia Depression Surgical History History of appendectomy History of section History of carpal tunnel surgery Family History Mother Cancer Other Aneurysm COPD (chronic obstructive pulmonary disease) Social History Smoking and tobacco/nicotine status: never used tobacco/nicotine Alcohol intake: former Current gender identity: Female Physical Exam 2 Urinary Catheter Management: Morton: Cath Placed During This Visit: yes Data 06/15/23 06:21 06/15/23 06:21 A&P Assessment and plan (1) Bradycardia: Patient noted to be found with profound bradycardia with a heart rate of 30s while in emergency room. This could be multifactorial potentially due to medication usage, vasovagal, or other etiology. EKGs were performed while in the emergency room and discussed above. Patient reports chronic abdominal pain and states does have diarrhea, but denies straining though increased confusion and hallucinations could potentially could have fogged patient's memory. Will obtain CT abdomen pelvis with and without contrast for further evaluation We will hold patient's home medications of amlodipine, lisinopril and amitriptyline until further evaluation. Echocardiogram Cardiology consultation Telemetry N.p.o. CBC, CMP, magnesium in AM. Atropine 0.4mg IV push as needed at bedside for heart rate less than 40. Normal saline at 100 mL/h. Dopamine, titrate, if needed TSH and magnesium was checked and normal Serial troponins (2) Essential hypertension: (3) CKD (chronic kidney disease) stage 3, GFR 30-59 ml/min: Elevated BUN. Creatinine noted to be slightly elevated which seems to be consistent with previous creatinine levels and history of chronic kidney disease. Continue to monitor labs. CMP in a.m. Morton cath in place for urinary retention. Avoid renal toxic medication Qualifiers: Chronic kidney disease stage 3 subtype: stage 3b (GFR 30-44) Qualified Code(s): N18.32 - Chronic kidney disease, stage 3b (4) Peripheral neuropathy: Plan Hallucinations. Check CT head without contrast Plan as stated above. Cardiology consultation. We will obtain an echocardiogram as well as CT abdominal pelvis with contrast and without contrast to further evaluate. Will hold home medications due to profound bradycardia and hypotension. IV hydration. Monitor labs in AM. Atropine at bedside. CODE STATUS: Full code. In the event patient is unable to make decisions for herself, Ruchi daughter, will make decisions for her. DVT prophylaxis: Heparin. Attestations 2 Medical Necessity Statement*: Will need greater than 2 midnight stay for evaluation and treatment of significant bradycardia, with hypotension. Critical Care Time: The high probability of a clinically significant, sudden or life threatening deterioration of the patient's [cardiac, neurologic, renal] system(s) required my full and direct attention, intervention and personal management. The critical care time is as shown. This time is in addition to time spent performing any reported procedures but includes the following: [x] Data and vital sign review and interpretation [x] Patient assessment, examination and intervention [x] Documentation [x] Medication orders and management Critical Care Time (min): 64 Coding Level of Care Code Critical Care >/= 30 minutes Diagnoses Bradycardia R00.1 Essential hypertension I10 Stage 3b chronic kidney disease N18.32 Chronic kidney disease stage 3 subtype: stage 3b (GFR 30-44) Peripheral neuropathy G62.9
[2023-06-15] MEDS: lanolin oint 7 gm 1 APPLIC TOPICAL (09:16)
--- NOTE | 2023-06-15 09:24 | USCV_ITS ---
Usman Hilliard Age: 73 Gender: F : 1950 Exam Date: 06/15/2023 10:42 Ordering Phys: Memo Dietz MD Technologist: Stephen Magallanes Exam Location: [facility] – [place] Indication: bradycardia BP: 118 / 42 HR: 39 Rhythm: Sinus Technical Quality: Adequate MEASUREMENTS (Male / Female) Normal Values 2D ECHO LV Ejection Fraction MOD 2C 60.3 % LV Ejection Fraction 2C AL 59.8 % LA Diameter 3.8 cm LA Width 3.0 cm LA Height 4.7 cm RA Width 3.0 cm RA Height 4.5 cm Aorta at Sinotubular Diameter 2.4 cm IVC Diameter 2.0 cm M-MODE Aortic Annulus Diameter 2.4 cm LA Ao Ratio MM 1.7 MV E Point Septal Separation 0.5 cm DOPPLER AV Peak Velocity 144.0 cm/s LVOT Peak Velocity 94.0 cm/s MV Peak Velocity 130.0 cm/s MV Area PHT 5.0 cm squared Mitral E to A Ratio 0.8 MV E' Velocity 39.5 cm/s Mitral E to MV E' Ratio 8.5 Mitral E to LV E' Lateral Ratio 8.5 Mitral E to LV E' Septal Ratio 8.5 TR Peak Velocity 260.7 cm/s TR Peak Gradient 27.2 mmHg TR Mean Velocity 200.9 cm/s TR Mean Gradient 17.4 mmHg TR Velocity Time Integral 80.6 cm Right Atrial Pressure 3.0 mmHg Pulmonary Artery Systolic Pressu 30.2 mmHg PV Peak Velocity 78.0 cm/s RV Acceleration Time 0.1 s RV Ejection Time 0.4 s RV AcT/ET 0.3 FINDINGS Left Ventricle Left ventricle is normal size. LV systolic function is normal with EF 55 to 60%. No regional wall motion abnormalities are seen. Right Ventricle Normal in size and function Right Atrium Normal in size Left Atrium Normal in size Mitral Valve Structurally normal mitral valve. Trace mitral regurgitation. Aortic Valve Structurally normal aortic valve. Mild aortic regurgitation Tricuspid Valve Mild tricuspid regurgitation. Pulmonary artery systolic pressure is normal. Pulmonic Valve Trace pulmonic regurgitation. Pericardium Normal Aorta Normal in size IVC Appears to be normal CONCLUSIONS LV systolic function is normal with EF 55 to 60%. Trace mitral regurgitation Mild aortic regurgitation Mild tricuspid regurgitation Trace pulmonic regurgitation No comparison studies are available Terence Gong MD (Electronically Signed) Final Date: 15 June 2023 17:03 S
--- NOTE | 2023-06-15 09:24 | CTR_ITS ---
PROCEDURE INFORMATION: Exam: CT Head Without Contrast Exam date and time: 06/15/2023 11:16 AM Age: 73 years old Clinical indication: Altered mental status/memory loss; Additional info: Hallucination TECHNIQUE: Imaging protocol: Computed tomography of the head without contrast. Radiation optimization: All CT scans at this facility use at least one of these dose optimization techniques: automated exposure control; mA and/or kV adjustment per patient size (includes targeted exams where dose is matched to clinical indication); or iterative reconstruction. REPORTING DATA: Count of CT and Cardiac NM exams in prior 12 months: This patient has received 0 known CTs and 0 known cardiac nuclear medicine studies in the 12 months prior to the current study. COMPARISON: No relevant prior studies available. RADIATION DOSE METRICS: Total DLP (mGy-cm): 1047.85 FINDINGS: Brain: Normal. No hemorrhage. Unremarkable white matter. No mass effect. Cerebral ventricles: No ventriculomegaly. Paranasal sinuses: Visualized sinuses are unremarkable. No fluid levels. Mastoid air cells: Visualized mastoid air cells are well aerated. Bones/joints: Unremarkable. No acute fracture. Soft tissues: Unremarkable. CT/CT head wo con* [id number] IMPRESSION: No acute intracranial abnormality.
--- NOTE | 2023-06-15 09:24 | CTR_ITS ---
PROCEDURE INFORMATION: Exam: CT Abdomen And Pelvis With Contrast Exam date and time: 06/15/2023 11:21 AM Age: 73 years old Clinical indication: Abdominal pain; Generalized; Additional info: Abdominal pain, bradycardia TECHNIQUE: Imaging protocol: Computed tomography of the abdomen and pelvis with contrast. Radiation optimization: All CT scans at this facility use at least one of these dose optimization techniques: automated exposure control; mA and/or kV adjustment per patient size (includes targeted exams where dose is matched to clinical indication); or iterative reconstruction. Contrast material: OMNI 350; Contrast volume: 100 ml; Contrast route: INTRAVENOUS (IV); REPORTING DATA: Count of CT and Cardiac NM exams in prior 12 months: This patient has received 0 known CTs and 0 known cardiac nuclear medicine studies in the 12 months prior to the current study. COMPARISON: CR XR abdomen 1V* [id number] 06/15/2023 8:15 AM RADIATION DOSE METRICS: Total DLP (mGy-cm): 497.01 FINDINGS: Lungs: Small subpleural lung nodules, 1 on each side, the largest on the right (4-4) measuring 4 mm. Liver: Normal. No mass. Gallbladder and bile ducts: Normal. No calcified stones. No ductal dilation. Pancreas: Normal. No ductal dilation. Spleen: Normal. No splenomegaly. Adrenal glands: Normal. No mass. Kidneys and ureters: Normal. No hydronephrosis. Stomach and bowel: Diverticulosis without evidence of diverticulitis. There is mild thickening of the wall the sigmoid colon, a mild nonspecific colitis is present. No evidence of diverticulitis. Appendix: No evidence of appendicitis. Intraperitoneal space: Unremarkable. No free air. No significant fluid collection. Vasculature: Unremarkable. No abdominal aortic aneurysm. Lymph nodes: Unremarkable. No enlarged lymph nodes. Urinary bladder: Morton catheter nearly emptying the urinary bladder. Reproductive: Unremarkable as visualized. Bones/joints: Unremarkable. No acute fracture. Soft tissues: Unremarkable. CT/CT abdomen pelvis w con* [id number] IMPRESSION: 1. Mild nonspecific sigmoid colitis. 2. Tiny lower lobe pulmonary nodules. For patients at low risk (minimal or absent history of smoking and of other known risk factors), no routine follow-up is indicated. For patients at high risk (history of smoking or of other known risk factors), consider optional CT Chest at 12 months. (Reference: [place]) References: Sabino Reyna et al. Guidelines for Management of Incidental Pulmonary Nodules Detected on CT Images: From the Fleischner Society 2017. Radiology. 2017;284(1):228-243.
[2023-06-15] MEDS: iohexol 350 mg/mL 500 mL Btl (per mL) IV (11:31)
--- NOTE | 2023-06-15 11:36 | P.CONIM_ITS ---
Providers/Reason For Consult 2 Consulting Physician/Specialty*: Terence Gong MD/ Cardiology Reason for Consult*: Bradycardia Requesting Physician: Dr Leon Attending Physician: Memo Dietz MD Primary Care Provider: Grupo Schaefer DO History of Present Illness History of Present Illness Usman Hilliard is a 73 year old female with no significant prior cardiac history, history of hypertension, neuropathy currently on oxycodone who presented to hospital with confusion and hallucinations. Patient saw changing colors of objects. Family mentions that over the phone as she was noted to act differently in the last few days however yesterday was an acute change. She also felt dizzy and lightheaded. She had recent UTI and was treated for it. In the ER was found to have sinus bradycardia with heart rates in the 30s. She denies chest pain or shortness of breath. Has not passed out. Since coming to the ICU heart rates have improved and now in 60s. No pauses are seen. She has noted increased dyspnea on exertion in the last few months Review of Systems 2 Narrative: Comprehensive 10 point ROS is negative except as noted in the HPI above. Card: Denies: chest pain Resp: Denies: dyspnea GI: Reports: abdominal pain and nausea; Denies: vomiting, hematochezia or melena Medications/Allergies Home Medications Medication Instructions Recorded Confirmed Last Taken Type oxycodone 10 mg tablet 10 - 20 mg PO QID PRN pain 07/28/20 06/15/23 06/15/23 History docusate sodium 100 mg capsule 100 mg PO BID #60 caps 01/22/22 06/15/23 06/14/23 Rx abatacept (with maltose) [Orencia See Rx Instructions .Route .COMPLEX 02/12/23 06/15/23 05/25/23 History (with maltose)] lisinopril 30 mg tablet 30 mg PO DAILY #90 tabs 02/15/23 06/15/23 06/14/23 Rx amitriptyline 50 mg tablet 50 mg PO BEDTIME #30 tabs 05/16/23 06/15/23 06/14/23 Rx cholecalciferol (vitamin D3) 1,250 50,000 unit PO .once weekly #12 05/22/23 06/15/23 Unknown Rx mcg (50,000 unit) capsule caps ondansetron 4 mg disintegrating 4 mg PO Q8H PRN nausea and 05/28/23 06/15/23 Unknown Rx tablet vomiting #60 tabs tizanidine 4 mg capsule 4 mg PO BID PRN Muscle Spasm 05/28/23 06/15/23 Unknown History amlodipine 10 mg tablet 10 mg PO QPM 06/15/23 06/15/23 06/14/23 History linaclotide 290 mcg capsule 290 mcg PO QPM 06/15/23 06/15/23 06/14/23 History (Linzess) prednisone 2.5 mg tablet 2.5 mg PO QPM 06/15/23 06/15/23 06/14/23 History Allergies Allergy/AdvReac Type Severity Reaction Status Date / Time codeine Allergy Mild Unknown Verified 06/15/23 06:23 isosorbide Allergy Mild Unknown Verified 06/15/23 06:23 latex Allergy ALGY-Rash Verified 06/15/23 06:23 leflunomide AdvReac Mild nausea and Verified 06/15/23 06:23 vomiting azathioprine [From Imuran] AdvReac Unknown ADR-Vomitin Verified 06/15/23 06:23 g Current Medications Generic Name Dose Route Start Last Admin Trade Name Freq PRN Reason Stop Dose Admin Sodium Chloride 1,000 mls @ 100 mls/hr 06/15/23 08:45 06/15/23 08:37 Sodium Chloride 0.9% IV 100 mls/hr .Q10H COLTEN Administration PFSH Acute 2 PFSH: Medical History Psoriatic arthritis Gouty arthritis Cellulitis of right foot Right foot pain Abscess of right foot Cellulitis of foot, right Dizziness Pre-syncope Insomnia Autoimmune hepatitis Plaque psoriasis Dysfunctional gallbladder Inflammatory arthritis Psoriasis Encounter for screening for other viral diseases High risk medication use Immunization counseling Psoriatic arthritis Essential (primary) hypertension Peripheral neuropathy Hyperlipemia Depression Surgical History History of appendectomy History of section History of carpal tunnel surgery Family History Mother Cancer Other Aneurysm COPD (chronic obstructive pulmonary disease) Social History Smoking and tobacco/nicotine status: never used tobacco/nicotine Alcohol intake: former Current gender identity: Female Vitals/I&O/Wt Last Vital Signs Temp 98.5 F 06/15/23 06:07 Pulse 63 06/15/23 11:34 Resp 16 06/15/23 11:34 BP 111/80 06/15/23 11:34 Pulse Ox 95 06/15/23 11:34 O2 Del Method Room Air 06/15/23 09:17 06/14/23 06/15/23 06/15/23 22:59 06:59 14:59 Intake Total 1000 / 1000 Balance 1000 / 1000 Weight last 48 hrs Weight 136 lb Physical Exam 2 Narrative: GENERAL: Patient is alert, awake and oriented x3. [] NECK: No jugular vein distension. [] HEENT: No cyanosis. No icterus. No pallor. [] HEART: Regular S1 and S2. No murmur, rub or gallop. [] LUNGS: Clear to auscultate bilaterally. [] CENTRAL NERVOUS SYSTEM: Grossly nonfocal. [] EXTREMITIES: Lower extremities with no edema bilaterally. Urinary Catheter Management: Morton: Cath Placed During This Visit: yes Urinary Catheter Date of Insertion: 06/15/23 Data 06/16/23 03:50 06/16/23 03:50 A&P Assessment and plan (1) Bradycardia: (2) Essential hypertension: (3) CKD (chronic kidney disease) stage 3, GFR 30-59 ml/min: Qualifiers: Chronic kidney disease stage 3 subtype: stage 3b (GFR 30-44) Qualified Code(s): N18.32 - Chronic kidney disease, stage 3b Plan Patient has presented with sinus bradycardia with heart rate in 30s. It has improved to now. She is getting workup for acute confusion and hallucinations. CT head ordered. Continue telemonitoring for now. Sinus bradycardia could be related to medications overdose although patient denies chance of accidental increased doses Hold all rate controlling medications ECHO pending No other rhythm moderate changes are seen of her hospitalization, she can be discharged home with event monitor for 30 days. Thank you for involving us with care of this patient. Will continue to follow. Please call with questions Consult Attestations 2 Medical Necessity Statement: Care expected to cross 2 midnights. Coding Level of Care Code Acute Code for [facility] Fwd Diagnoses Bradycardia R00.1 Essential hypertension I10 Stage 3b chronic kidney disease N18.32 Chronic kidney disease stage 3 subtype: stage 3b (GFR 30-44)
--- NOTE | 2023-06-15 12:10 | PC.NURSE ---
Pt arrives to ICU. Pt alert and oriented. Junctional rhythm , rate in the 40's noted. Pt does complain of foot pain, awaiting pharmacy verification on medication.
[2023-06-15] MEDS: oxyCODONE 5 mg IR Tab/Cap 10 MG PO ×2 (12:47→18:21)
[2023-06-15] MEDS: predniSONE 5 mg Tablet PO (12:48)
[2023-06-15] MEDS: heparin 5,000 unit/mL INJ 1 mL 5000 UNIT SUBCUT (12:49)
[2023-06-15 13:22] LABS: Troponin 5 6HR 10.55 ng/L (0-10)
[2023-06-15 13:23] LABS: Troponin 5 6HR Delta -1.45 ng/L (0-12)
--- NOTE | 2023-06-15 13:25 | ECG_ITS ---
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 Measurements Intervals Josephine Rate: 53 P: 68 IN: 158 QRS: 44 QRSD: 81 T: 61 QT: 419 QTc: 394 Interpretive Statements SINUS BRADYCARDIA Compared to ECG 06/15/2023 08:02:30 No significant changes Electronically Signed On 06-15-2023 14:56:51 NOCTURNIST PHYSICIAN by Terence Gong M.D. [id number]
[2023-06-15] MEDS: sennosides-docusate Tablet 2 TAB PO (18:21)
[2023-06-15] MEDS: acetaminophen 325 mg Tablet 650 MG PO (19:53)
--- NOTE | 2023-06-15 19:58 | PC.NURSE ---
Shift summary: Pt has been resting in bed since her arrival to ICu. She remains alert and oriented. Junctional rhythm noted on admint. Her rhythm has since improved to sinus rhythm with the rate in 80's. VSS. NO ectopy noted on monitor this shift. Ns remains infusing. Pt has had poor appetite today but has had good fluid intake. her and granddaughter were at bedside this afternoon. She had 2000ml of urine output this shift. Her complaints of pain were chronic in nature, the neuropathy in her feet. Oxy IR admin, She stated it helped.
[2023-06-15] MEDS: amitriptyline 25 mg Tablet PO (21:03)
[2023-06-16] VITALS (18 sets, daily range): BP systolic 144–175; BP diastolic 61–81; PULSE 72–95; RESP 14–24; TEMP 36.6–37.3; O2SAT 97–100
[2023-06-16] MEDS: oxyCODONE 5 mg IR Tab/Cap 10 MG PO ×3 (00:27→12:14)
[2023-06-16] MEDS: heparin 5,000 unit/mL INJ 1 mL 5000 UNIT SUBCUT (00:29)
[2023-06-16 04:16] LABS: Basophils % 0.6 %; Eosinophils # 0.1 10^3/uL (0.0-0.8); Eosinophils % 1.5 %; Hematocrit 33.9 % (36-47); Lymphocytes % 36.9 %; Mean Corpuscular HGB Conc 32.4 g/dL (30-55); Mean Corpuscular Hemoglobin 28.1 pg (27-33); Mean Corpuscular Volume 86.7 fl (85-98); Monocytes # 0.3 10^3/uL (0.2-0.9); Monocytes % 5.7 %; Neutrophils % 55.1 %; Nucleated Red Blood Cells % 0 %; Platelet Count 275 10^3/cmm (157-399); Red Blood Count 3.91 10^6/uL (3.85-5.65); White Blood Count 5.44 10^3/uL (3.29-11.43)
[2023-06-16 04:40] LABS: Alanine Aminotransferase 11 U/L (0-33); Albumin Level 3.8 g/dL (3.5-5.2); Alkaline Phosphatase 98 U/L (35-105); Anion Gap 16.2 (5-19); Aspartate Amino Transferase 16 U/L (0-32); Blood Urea Nitrogen 17 mg/dL (8-23); Carbon Dioxide 18 mmol/L (22-29); Chloride 111 mmol/L (98-107); Creatinine Clr Calc Pharmacy 36.2188; Globulin 3.2 g/dL (1.3-4.6); Glucose 92 mg/dL (65-115); Magnesium 1.9 mg/dL (1.7-2.3); Osmolality Calculated 293 mOsm/kg (285-295); Potassium 4.2 mmol/L (3.5-5.1); Sodium 141 mmol/L (136-145); Total Bilirubin 0.3 mg/dL (0.15-1.2)
[2023-06-16] MEDS: sodium chloride 0.9% 1,000 ML 100 ML IV (06:07)
--- NOTE | 2023-06-16 08:34 | P.PN_ITS ---
Subjective 2 Subjective: Patient is doing well. No chest pain. Vitals/I&O/Wt Last Vital Signs Temp 99.2 F 06/16/23 06:00 Pulse 82 06/16/23 06:00 Resp 22 H 06/16/23 06:07 BP 162/71 06/16/23 06:00 Pulse Ox 98 06/16/23 06:07 O2 Del Method Room Air 06/15/23 20:00 06/15/23 06/16/23 06/16/23 22:59 06:59 14:59 Intake Total 1390 / 2490 1480 / 3970 Output Total 2800 / 2800 2450 / 5250 Balance -1410 / -310 -970 / -1280 Weight last 48 hrs Weight 126 lb Weight 129 lb Weight 136 lb Weight 136 lb Physical Exam 2 Narrative: GENERAL: Patient is alert, awake and oriented x3. [] NECK: No jugular vein distension. [] HEENT: No cyanosis. No icterus. No pallor. [] HEART: Regular S1 and S2. No murmur, rub or gallop. [] LUNGS: Clear to auscultate bilaterally. [] CENTRAL NERVOUS SYSTEM: Grossly nonfocal. [] EXTREMITIES: Lower extremities with no edema bilaterally. Urinary Catheter Management: Morton: Cath Placed During This Visit: yes Reason for Continuing Indwelling Catheter: Acute Urinary Retention or Obstruction Urinary Catheter Date of Insertion: 06/15/23 Data 06/16/23 03:50 06/16/23 03:50 A&P Assessment and plan (1) Bradycardia: (2) Essential hypertension: (3) CKD (chronic kidney disease) stage 3, GFR 30-59 ml/min: Qualifiers: Chronic kidney disease stage 3 subtype: stage 3b (GFR 30-44) Qualified Code(s): N18.32 - Chronic kidney disease, stage 3b Plan Patient's heart rate has stayed stable and she is in normal sinus rhythm since yesterday. Echo shows normal LV systolic function. Keep holding any rate limiting agents. Patient can be discharged home with 30-day event monitor. Thank you for involving us with care of this patient. Please call with questions Attestations 2 Medical Necessity Statement*: Care expected to cross 2 midnights. Coding Level of Care Code Acute Code for [facility] Fw Diagnoses Bradycardia R00.1 Essential hypertension I10 Stage 3b chronic kidney disease N18.32 Chronic kidney disease stage 3 subtype: stage 3b (GFR 30-44)
[2023-06-16] MEDS: pantoprazole DR 40 mg Tablet PO (08:45)
[2023-06-16] MEDS: predniSONE 5 mg Tablet PO (08:45)
[2023-06-16] MEDS: acetaminophen 325 mg Tablet 650 MG PO (08:50)
--- NOTE | 2023-06-16 12:51 | PM.DCS ---
Discharge Providers Date of Admission: 06/15/23 08:09 Date of Discharge: June 16, 2023 Attending Provider at Admission: Memo Dietz MD Attending Provider at Discharge: Conrado Way Primary Care Provider: Grupo Schaefer DO Diagnoses at Discharge Discharge Diagnosis (1) Bradycardia: Status: Acute (2) Essential hypertension: Status: Acute (3) CKD (chronic kidney disease) stage 3, GFR 30-59 ml/min: Status: Acute Qualifiers: Chronic kidney disease stage 3 subtype: stage 3b (GFR 30-44) Qualified Code(s): N18.32 - Chronic kidney disease, stage 3b Reason for Visit Reason for Visit: hallucinations Hospital Course Hospital Course Pleasant 73-year-old lady with history of chronic pain, on several different medications including narcotics, but also tizanidine, amitriptyline, presented with bradycardia, unclear etiology, with unremarkable thyroid function, electrolytes, with minimal troponin abnormality, without suggestion of cardiac ischemia, unremarkable UDS, additionally with some symptoms of hallucinations, was assessed by cardiology. Monitor on telemetry. Dopamine was on standby but did not require chronotropic intervention. Dose of amitriptyline was decreased. She additionally states that she increased her dose of tizanidine to twice her previous dose and that she has found that it can cause symptoms like she has been having. She is going to discontinue tizanidine. For now she is continue on half dose amitriptyline as discussed with her and will follow-up with primary provider for reassessment. Echocardiogram was obtained with finding of normal ejection fraction, trace MVR, mild AVR, mild TVR, trace OH. Her heart rates improved and bradycardia resolved, heart rates remaining in the 80s. She was reassessed by cardiology and found in good shape to be able to discharge home and follow-up outpatient with referral for monitoring manager as discussed with her. She is instructed to continue monitoring her heart rates, and continue monitoring blood pressures for optimization of chronic hypertension. Physical Exam Narrative: She reports she is doing very well, request to go home. Denies any additional hallucinations. Heart rate has improved. She ambulated around the unit without issues. Const: COMMON NORMALS: patient oriented x3 and alert GENERAL APPEARANCE: cooperative ORIENTATION/CONSCIOUSNESS: Yes awake HENMT: COMMON NORMALS: oropharynx normal Neck/C-Spine: COMMON NORMALS: no JVD Resp: COMMON NORMALS: normal respiratory effort and clear to auscultation bilaterally AUSCULTATION: clear to auscultation bilaterally Cardio: COMMON NORMALS: no JVD, regular rhythm, S1 normal heart sound present, S2 normal heart sound present and No murmurs present (Cardio) RHYTHM: regular rhythm HEART SOUNDS: S1 normal heart sound present and S2 normal heart sound present GI: COMMON NORMALS: Normal to inspection, nondistended, normoactive bowel sounds present, Soft to palpation and non-tender PALPATION: Yes Soft to palpation Extremity: COMMON NORMALS: no joint enlargement and no pedal edema Neuro: COMMON NORMALS: patient oriented x3 and moves all extremities SENSORIUM/ORIENTATION: Yes alert Skin: COMMON NORMALS: no rashes or lesions noted GENERAL SKIN EXAM: no rashes or lesions noted Urinary Catheter Management: Morton: Cath Placed During This Visit: yes Reason for Continuing Indwelling Catheter: Acute Urinary Retention or Obstruction Urinary Catheter Date of Insertion: 06/15/23 Discharge Data Studies Completed and Pending Completed Studies During Hospitalization Category Date Time Status CT abdomen pelvis w con* [id number] Stat Cat Scan 06/15/23 09:[address] head wo con* [id number] Stat Cat Scan 06/15/23 09:24 Completed XR abdomen 1V* [id number] Stat Exams 06/15/23 08:05 Completed XR chest 1V portable [id number] Stat Exams 06/15/23 06:22 Completed CV. echo complete* [id number] Routine Ultrasound 06/15/23 09:24 Completed Radiology Impressions Chest X-Ray 06/15/23 06:22 IMPRESSION: Support hardware in place. No acute cardiopulmonary disease. Abdomen X-Ray 06/15/23 08:05 IMPRESSION: Limited study. Nonspecific bowel gas pattern. Abdomen/Pelvis CT 06/15/23 09:24 IMPRESSION: 1. Mild nonspecific sigmoid colitis. 2. Tiny lower lobe pulmonary nodules. For patients at low risk (minimal or absent history of smoking and of other known risk factors), no routine follow-up is indicated. For patients at high risk (history of smoking or of other known risk factors), consider optional CT Chest at 12 months. (Reference: Sabino) References: Sabino Reyna, et al. Guidelines for Management of Incidental Pulmonary Nodules Detected on CT Images: From the Fleischner Society 2017. Radiology. 2017;284(1):228-243. Head CT 06/15/23 09:24 IMPRESSION: No acute intracranial abnormality. Laboratory Results WBC 5.44 10^3/uL (3.29-11.43) 06/16/23 03:50 RBC 3.91 10^6/uL (3.85-5.65) 06/16/23 03:50 Hgb 11.00 g/dL (11.27-16.99) L 06/16/23 03:50 Hct 33.9 % (36-47) L 06/16/23 03:50 MCV 86.7 fl (85-98) 06/16/23 03:50 MCH 28.1 pg (27-33) 06/16/23 03:50 MCHC 32.4 g/dL (30-55) 06/16/23 03:50 RDW 13.0 % (12.1-15.1) 06/16/23 03:50 Plt Count 275 10^3/cmm (157-399) 06/16/23 03:50 MPV 9.0 fL (7.4-10.4) 06/16/23 03:50 Neut % (Auto) 55.1 % 06/16/23 03:50 Lymph % (Auto) 36.9 % 06/16/23 03:50 [place] % (Auto) 5.7 % 06/16/23 03:50 Eos % (Auto) 1.5 % 06/16/23 03:50 Baso % (Auto) 0.6 % 06/16/23 03:50 Neut # (Auto) 3.00 10^3/uL (1.8-7.7) 06/16/23 03:50 Lymph # (Auto) 2.0 10^3/uL (0.8-4.8) 06/16/23 03:50 [place] # (Auto) 0.3 10^3/uL (0.2-0.9) 06/16/23 03:50 Eos # (Auto) 0.1 10^3/uL (0.0-0.8) 06/16/23 03:50 Baso # (Auto) 0.0 10^3/uL (0.0-0.1) 06/16/23 03:50 Nucleated RBC % (auto) 0 % 06/16/23 03:50 Nucleated RBCs # 0.0 /100WBC 06/16/23 03:50 PT 13.10 SECONDS (12.1-14.9) 06/15/23 06:21 INR 0.96 (0.8-1.2) 06/15/23 06:21 Sodium 141 mmol/L (136-145) D 06/16/23 03:50 Potassium 4.2 mmol/L (3.5-5.1) 06/16/23 03:50 Chloride 111 mmol/L (98-107) H 06/16/23 03:50 Carbon Dioxide 18 mmol/L (22-29) L 06/16/23 03:50 Anion Gap 16.2 (5-19) 06/16/23 03:50 BUN 17 mg/dL (8-23) 06/16/23 03:50 Creatinine 1.2 mg/dL (0.5-0.9) H 06/16/23 03:50 GFR Calculation Not Reportable 06/16/23 03:50 Glucose 92 mg/dL (65-115) 06/16/23 03:50 Calculated Osmolality 293 mOsm/kg (285-295) 06/16/23 03:50 Calcium 9.0 mg/dL (8.5-10.5) 06/16/23 03:50 Magnesium 1.9 mg/dL (1.7-2.3) 06/16/23 03:50 Total Bilirubin 0.3 mg/dL (0.15-1.2) 06/16/23 03:50 AST 16 U/L (0-32) 06/16/23 03:50 ALT 11 U/L (0-33) 06/16/23 03:50 Alkaline Phosphatase 98 U/L (35-105) 06/16/23 03:50 Troponin T Baseline 12 ng/L (0-10) H 06/15/23 06:21 Troponin T 120 Minute 12.01 ng/L (0-10) H 06/15/23 08:22 Delta Troponin T 0.01 ABS# (0-10) 06/15/23 08:22 Troponin T Hi Sens 6Hr 10.55 ng/L (0-10) H 06/15/23 12:28 Troponin T Hi Sens 6Hr Delta -1.45 ng/L (0-12) L 06/15/23 12:28 Total Protein 7.0 g/dL (6.6-8.7) 06/16/23 03:50 Albumin 3.8 g/dL (3.5-5.2) 06/16/23 03:50 Globulin 3.2 g/dL (1.3-4.6) 06/16/23 03:50 TSH 0.64 uIU/mL (0.27-4.20) 06/15/23 06:21 Urine Color Yellow (Yellow) 06/15/23 06:45 Urine Appearance Clear (CLEAR) 06/15/23 06:45 Urine pH 7 (5-7) 06/15/23 06:45 Ur Specific [place] 1.010 (1.005-1.030) 06/15/23 06:45 Urine Protein Neg (Negative) 06/15/23 06:45 Urine Glucose (UA) Norm (Normal) 06/15/23 06:45 Urine Ketones Negative (Negative) 06/15/23 06:45 Urine Blood Neg (Negative) 06/15/23 06:45 Urine Nitrate Negative (Negative) 06/15/23 06:45 Urine Bilirubin Neg (Negative) 06/15/23 06:45 Urine Urobilinogen Norm mg/dL (Negative) 06/15/23 06:45 Ur Leukocyte Esterase Negative (Negative) 06/15/23 06:45 Urine Opiates Screen Negative ng/mL (Negative) 06/15/23 06:45 Ur Barbiturates Screen Negative ng/mL (Negative) 06/15/23 06:45 Ur Phencyclidine Scrn Negative ng/mL (Negative) 06/15/23 06:45 Ur Amphetamines Screen Negative ng/mL (Negative) 06/15/23 06:45 U Benzodiazepines Scrn Negative ng/mL (Negative) 06/15/23 06:45 Urine Cocaine Screen Negative ng/mL (Negative) 06/15/23 06:45 U Marijuana (THC) Screen Negative ng/mL (Negative) 06/15/23 06:45 Vitals Last Vital Signs Temp 97.9 F 06/16/23 08:00 Pulse 87 06/16/23 12:00 Resp 14 06/16/23 12:14 BP 175/74 06/16/23 12:00 Pulse Ox 100 06/16/23 12:14 O2 Del Method Room Air 06/16/23 12:00 Discharge Plan Discharge Patient Disposition: Home Condition: Stable Prescriptions: New polyethylene glycol 3350 17 gram Powder In Packet 17 g PO BID Qty: 180 0RF amitriptyline 25 mg Tablet 25 mg PO BEDTIME Qty: 1 0RF Continued oxycodone 10 mg tablet 10 - 20 mg PO QID PRN (Reason: pain) abatacept (with maltose) [Orencia (with maltose)] See Rx Instructions .ROUTE .COMPLEX Rx Instructions: intravenously as directed lisinopril 30 mg tablet 30 mg PO DAILY Qty: 90 3RF ondansetron 4 mg tablet,disintegrating 4 mg PO Q8H PRN (Reason: nausea and vomiting) Qty: 60 5RF cholecalciferol (vitamin D3) 1,250 mcg (50,000 unit) capsule 50,000 unit PO .once weekly Qty: 12 0RF docusate sodium 100 mg Capsule 100 mg PO BID Qty: 60 0RF amlodipine 10 mg tablet 10 mg PO QPM Linzess 290 mcg capsule 290 mcg PO QPM prednisone 2.5 mg tablet 2.5 mg PO QPM Discontinued tizanidine 4 mg capsule 4 mg PO BID PRN (Reason: Muscle Spasm) Discharge Orders: Discharge Order (Routine); Ordered 06/16/23 Ordered By: Conrado Way Other Ambulatory Orders: MCT/Event Monitor 21 Days (Routine) Timeframe: 2 Days Facility: [facility] - Location: Radiology Ordered By: Conrado Way Referrals: Grupo Schaefer DO [Primary Care Provider] - 4-7 days Ruchi Cruz FNP [Nurse Practitioner] - 1 week ( 1. Specific procedure: 2. Estimated procedure time? 3. Any dates to be coordinated with appointment? 4. Date of Encounter/Order completed: 5. Special notes (ie. stone protocol, CSF contents cytology, LTD abdomen organ, standing order, etc.): 6. Correct CPT/ICD10/Procedure Codes: 7. Passed ABN? 8. Order signed? 9. Future Order? 10. Note signed and ready for review?) Discharge Diet: Cardiac Patient Instructions: Amitriptyline (By mouth), Tizanidine (By mouth), Bradycardia (GEN), Hypertension (GEN), Opioid Safety Activity Restrictions/Additional Instructions: Continue to monitor heart rates and blood pressures. If INR is persistently low heart rates, less than 60 or low blood pressures, less than 90/50, or any other worsening or new concerning symptoms, seek medical attention. Follow-up for heart monitor. Follow-up with cardiology in office. Continue to monitor blood pressure to help control hypertension. Write down values to bring to her appointment. Discussed with your primary doctor reduction in dose of amitriptyline as well as discontinuation of tizanidine. If your symptoms go away and do not return, consider avoiding tizanidine due to possible intolerance. Discuss consideration of resuming your usual dose of amitriptyline. Follow-up with your primary provider regarding other medical problems including chronic kidney disease, peripheral neuropathy. Please call on Sunday to schedule follow-up appointments with Dr. Schaefer and Ruchi Cruz. Discharge Attestations Time Spent in Discharge Care*: greater than 30 min Quality Metrics Clinical Quality Measures [ No reported AMI, CVA or VTE this stay] Coding Level of Care Code 71982 Total time (in minutes) for Discharge: 50 Diagnoses Bradycardia R00.1 Essential hypertension I10 Stage 3b chronic kidney disease N18.32 Chronic kidney disease stage 3 subtype: stage 3b (GFR 30-44)
--- NOTE | 2023-06-16 13:36 | PC.NURSE ---
Morton catheter removed, patient voided 350ml, IV previously removed per patient request, Patient ambulated in room as well as to and from bathroom and from bed to chair. No cardiac changes noted. Patient at bedside, education provided for follow up appointments with cardiology, primary dr, and for event monitor. Education over medications reviewed with patient, written education also provided. 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 Patient verbalized understanding of all teachings and had no questions. All belongings with patient who went to get vehicle. Patient transported to vehicle via wheelchair.
== END 2023-06-16 13:46 | disposition home or self-care (01) ==
LOC: ER 07:42 → ICU 06-16 08:50
PROVIDERS: Admitting Provider Internal Medicine; Emergency Provider Emergency Medicine; PCP Family Medicine; Visit Provider Internal Medicine
DX: R00.1 Bradycardia, unspecified (principal); R41.0 Disorientation, unspecified; R44.3 Hallucinations, unspecified; I12.9 Hypertensive chronic kidney disease with stage 1 through stage 4 chronic kidney disease, or unspecified chronic kidney disease; N18.32 Chronic kidney disease, stage 3b; E78.5 Hyperlipidemia, unspecified; I08.3 Combined rheumatic disorders of mitral, aortic and tricuspid valves; G62.9 Polyneuropathy, unspecified
CPT/HCPCS: 36415; 51702; 70450; 71045; 74018; 74177; 80053; 80306; 81003; 83735; 84443; 84484; 85025; 85610; 93005; 93306; 96372; 99285; G0378; J1644; J7030; J7512; Q9967

== ENCOUNTER 2023-07-18 13:30 | Oncology outpatient (recurring) (ONCR) | payer MEDICARE, MEDICAID, SELFPAY ==
--- NOTE | 2023-07-04 13:49 | PC.NURSE ---
patient reports recent uti and finished antibiotics 07/01/23. Per Dr. Poole's nurse Padmini, patient to wait 2 weeks from antibiotics and symptom free. patient verbalized understanding. patient to reschedule.
--- NOTE | 2023-07-17 08:57 | PC.NURSE ---
Called pt, verified no antibiotics or s/s of infection in the last two weeks. Confirmed pts appointment. ALTHEA
[2023-07-18] MEDS: sodium chloride 0.9% 250 ML 75 ML IV (14:51)
[2023-07-18] MEDS: acetaminophen 325 mg Tablet 650 MG PO (14:51)
[2023-07-18] MEDS: diphenhydrAMINE 50 mg/mL SDV 1mL 25 MG IVP (14:53)
[2023-07-18] MEDS: methylPREDNISolone sod succ 40 mg/mL INJ IVP (14:56)
[2023-07-18] MEDS: abatacept 750 MG in sodium chloride 0.9% (100 ml) 100 ML 200 MG IV (15:20)
[2023-07-18 15:56] VITALS: BP 148/72; PULSE 67; TEMP 36.4; O2SAT 98
== END 2023-07-18 23:59 | disposition home or self-care (01) ==
PROVIDERS: PCP Family Medicine; Visit Provider Internal Medicine Rheumatology
DX: Z53.9 Procedure and treatment not carried out, unspecified reason (principal); L40.50 Arthropathic psoriasis, unspecified
CPT/HCPCS: 96365; 96375; A4222; J0129; J1200; J2920; J7050

== ENCOUNTER 2023-08-09 11:33 | Outpatient (CLI) | payer MEDICARE, MEDICAID, SELFPAY ==
[2023-08-09 12:03] LABS: Basophils % 0.4 %; Eosinophils # 0.3 10^3/uL (0.0-0.8); Eosinophils % 4.2 %; Hematocrit 36.6 % (36-47); Lymphocytes % 39.9 %; Mean Corpuscular HGB Conc 32.2 g/dL (30-55); Mean Corpuscular Volume 89.9 fl (85-98); Mean Platelet Volume 8.6 fL (7.4-10.4); Monocytes # 0.5 10^3/uL (0.2-0.9); Monocytes % 7.2 %; Neutrophils # 3.54 10^3/uL (1.8-7.7); Neutrophils % 47.9 %; Nucleated Red Blood Cells % 0 %; Platelet Count 282 10^3/cmm (157-399); Red Blood Count 4.07 10^6/uL (3.85-5.65); Red Cell Distribution Width 13.5 % (12.1-15.1); White Blood Count 7.39 10^3/uL (3.29-11.43)
[2023-08-09 12:16] LABS: Alanine Aminotransferase 8 U/L (0-33); Alkaline Phosphatase 103 U/L (35-105); Anion Gap 16.2 (5-19); Aspartate Amino Transferase 12 U/L (0-32); Blood Urea Nitrogen 18 mg/dL (8-23); Calcium 8.5 mg/dL (8.5-10.5); Carbon Dioxide 20 mmol/L (22-29); Chloride 101 mmol/L (98-107); Globulin 3.5 g/dL (1.3-4.6); Glucose 100 mg/dL (65-115); Osmolality Calculated 278 mOsm/kg (285-295); Potassium 4.2 mmol/L (3.5-5.1); Sodium 133 mmol/L (136-145); Total Bilirubin 0.2 mg/dL (0.15-1.2); Total Protein 7.5 g/dL (6.6-8.7)
== END 2023-08-09 11:34 | disposition home or self-care (01) ==
LOC: LAB 11:39
PROVIDERS: PCP Family Medicine; Visit Provider Internal Medicine Gastroenterology
DX: K75.4 Autoimmune hepatitis (principal)
CPT/HCPCS: 36415; 80053; 85025

== ENCOUNTER → 2023-08-13 11:13 | Outpatient (BNVA) | payer MEDICARE, SELFPAY | PROVIDERS: PCP Family Medicine; Visit Provider Internal Medicine Rheumatology | DX: L40.50 Arthropathic psoriasis, unspecified (principal); Z79.899 Other long term (current) drug therapy; Z71.89 Other specified counseling | CPT/HCPCS: 99214 ==

== ENCOUNTER 2023-08-15 13:07 | Oncology outpatient (recurring) (ONCR) | payer MEDICARE, SELFPAY ==
[2023-08-15] MEDS: abatacept 750 MG in sodium chloride 0.9% (100 ml) 100 ML 200 MG IV (13:25)
[2023-08-15 14:01] VITALS: BP 126/65; PULSE 82; RESP 16; TEMP 36.4; O2SAT 99
[2023-08-15] MEDS: sodium chloride 0.9% 250 ML 75 ML IV (14:17)
[2023-08-15] MEDS: acetaminophen 325 mg Tablet 650 MG PO (14:18)
[2023-08-15] MEDS: diphenhydrAMINE 50 mg/mL SDV 1mL 25 MG IVP (14:18)
[2023-08-15] MEDS: methylPREDNISolone sod succ 40 mg/mL INJ IVP (14:18)
[2023-08-15 16:09] VITALS: BP 107/54; PULSE 80; TEMP 36.4; O2SAT 99
== END 2023-08-16 23:59 | disposition home or self-care (01) ==
LOC: ONCMED 13:07
PROVIDERS: PCP Family Medicine; Visit Provider Internal Medicine Rheumatology
DX: L40.50 Arthropathic psoriasis, unspecified (principal)
CPT/HCPCS: 96365; 96375; A4222; J0129; J1200; J2920; J7050

== ENCOUNTER 2023-09-12 12:59 | Oncology outpatient (recurring) (ONCR) | payer MEDICARE, MEDICAID, SELFPAY ==
[2023-09-12 13:34] VITALS: BP 114/60; PULSE 67; RESP 18; TEMP 36.2; O2SAT 95
[2023-09-12] MEDS: diphenhydrAMINE 50 mg/mL SDV 1mL 25 MG IVP (13:44)
[2023-09-12] MEDS: acetaminophen 325 mg Tablet 650 MG PO (13:44)
[2023-09-12] MEDS: sodium chloride 0.9% 250 ML 75 ML IV (13:44)
[2023-09-12] MEDS: methylPREDNISolone sod succ 40 mg/mL INJ IVP (13:48)
[2023-09-12] MEDS: abatacept 750 MG in sodium chloride 0.9% (100 ml) 100 ML 200 MG IV (14:15)
[2023-09-12 15:56] VITALS: BP 107/61; PULSE 65; RESP 16; TEMP 36.4; O2SAT 95
== END 2023-09-16 23:59 | disposition home or self-care (01) ==
PROVIDERS: PCP Family Medicine; Visit Provider Internal Medicine Rheumatology
DX: L40.50 Arthropathic psoriasis, unspecified (principal)
CPT/HCPCS: 96365; 96375; A4222; J0129; J1200; J2920; J7050

== ENCOUNTER 2023-10-10 13:04 | Oncology outpatient (recurring) (ONCR) | payer MEDICARE, MEDICAID, SELFPAY ==
[2023-10-10 13:32] VITALS: BP 133/59; PULSE 65; TEMP 36.2; O2SAT 98
[2023-10-10] MEDS: sodium chloride 0.9% 250 ML 75 ML IV (13:47)
[2023-10-10] MEDS: diphenhydrAMINE 50 mg/mL SDV 1mL 25 MG IVP (13:47)
[2023-10-10] MEDS: acetaminophen 325 mg Tablet 650 MG PO (13:49)
[2023-10-10] MEDS: methylPREDNISolone sod succ 40 mg/mL INJ IVP (13:50)
[2023-10-10] MEDS: abatacept 750 MG in sodium chloride 0.9% (100 ml) 100 ML 200 MG IV (14:10)
[2023-10-10 15:04] VITALS: BP 159/74; PULSE 74; RESP 16; TEMP 36.4; O2SAT 97
== END 2023-10-16 23:59 | disposition home or self-care (01) ==
LOC: ONCMED 13:05
PROVIDERS: PCP Family Medicine; Visit Provider Internal Medicine Rheumatology
DX: L40.50 Arthropathic psoriasis, unspecified; Z79.899 Other long term (current) drug therapy
CPT/HCPCS: 96365; 96375; A4222; J0129; J1200; J2919; J7050

== ENCOUNTER 2023-11-07 07:46 | Oncology outpatient (recurring) (ONCR) | payer MEDICARE, MEDICAID, SELFPAY ==
[2023-11-07 08:00] VITALS: BP 109/67; PULSE 61; RESP 16; TEMP 37.1; O2SAT 96; BMI 25.9
[2023-11-07 08:12] LABS: Basophils % 0.4 %; Eosinophils % 0.6 %; Hematocrit 33.4 % (36-47); Lymphocytes # 2.2 10^3/uL (0.8-4.8); Lymphocytes % 41.5 %; Mean Corpuscular HGB Conc 32.3 g/dL (30-55); Mean Corpuscular Hemoglobin 29.6 pg (27-33); Mean Corpuscular Volume 91.5 fl (85-98); Monocytes # 0.4 10^3/uL (0.2-0.9); Monocytes % 7.4 %; Neutrophils # 2.62 10^3/uL (1.8-7.7); Neutrophils % 49.5 %; Nucleated Red Blood Cells % 0 %; Platelet Count 222 10^3/cmm (157-399); Red Blood Count 3.65 10^6/uL (3.85-5.65); Red Cell Distribution Width 12.7 % (12.1-15.1); White Blood Count 5.28 10^3/uL (3.29-11.43)
[2023-11-07 08:18] VITALS: BP 121/64; PULSE 73; RESP 16; TEMP 36.4; O2SAT 98
[2023-11-07 08:19] LABS: Erythrocyte Sedimentation Rate 10 mm/hr (0-15)
[2023-11-07] MEDS: sodium chloride 0.9% 250 ML 75 ML IV (08:24)
[2023-11-07] MEDS: diphenhydrAMINE 50 mg/mL SDV 1mL 25 MG IVP (08:24)
[2023-11-07] MEDS: acetaminophen 325 mg Tablet 650 MG PO (08:24)
[2023-11-07] MEDS: methylPREDNISolone sod succ 40 mg/mL INJ IVP (08:25)
[2023-11-07 08:28] LABS: Alanine Aminotransferase 10 U/L (0-33); Alkaline Phosphatase 105 U/L (35-105); Aspartate Amino Transferase 17 U/L (0-32); Creatinine Clr Calc Pharmacy 37.8944; Globulin 2.9 g/dL (1.3-4.6); Total Bilirubin 0.2 mg/dL (0.15-1.2); Total Protein 6.9 g/dL (6.6-8.7)
[2023-11-07] MEDS: abatacept 750 MG in sodium chloride 0.9% (100 ml) 100 ML 200 MG IV (08:53)
[2023-11-07 09:41] VITALS: BP 114/65; PULSE 54; RESP 17; TEMP 36.7; O2SAT 95
== END 2023-11-16 23:59 | disposition home or self-care (01) ==
LOC: ONCMED 07:46
PROVIDERS: PCP Family Medicine; Visit Provider Internal Medicine Rheumatology
DX: L40.50 Arthropathic psoriasis, unspecified (principal)
CPT/HCPCS: 80076; 82565; 85025; 85651; 96365; 96375; A4222; J0129; J1200; J2919; J7050

== ENCOUNTER 2023-12-05 13:07 | Oncology outpatient (recurring) (ONCR) | payer MEDICARE, MEDICAID, SELFPAY ==
[2023-12-05 13:20] VITALS: BP 186/69; PULSE 80; RESP 16; TEMP 36.7; O2SAT 97
[2023-12-05 13:25] VITALS: BP 168/69
[2023-12-05] MEDS: diphenhydrAMINE 50 mg/mL SDV 1mL 25 MG IVP (13:50)
[2023-12-05] MEDS: acetaminophen 325 mg Tablet 650 MG PO (13:50)
[2023-12-05] MEDS: sodium chloride 0.9% 250 ML 75 ML IV (13:50)
[2023-12-05] MEDS: methylPREDNISolone sod succ 40 mg/mL INJ IVP (13:51)
[2023-12-05] MEDS: abatacept 750 MG in sodium chloride 0.9% (100 ml) 100 ML 200 MG IV (14:12)
[2023-12-05 14:44] VITALS: BP 176/68; PULSE 67; O2SAT 98
== END 2023-12-16 23:59 | disposition home or self-care (01) ==
PROVIDERS: PCP Family Medicine; Visit Provider Internal Medicine Rheumatology
DX: L40.50 Arthropathic psoriasis, unspecified (principal)
CPT/HCPCS: 96365; 96375; A4222; J0129; J1200; J2919; J7050

== ENCOUNTER → 2024-01-01 11:22 | Outpatient (BNVA) | payer MEDICARE, MEDICAID, SELFPAY | PROVIDERS: PCP Family Medicine; Visit Provider Internal Medicine Rheumatology | DX: L40.50 Arthropathic psoriasis, unspecified (principal); L40.0 Psoriasis vulgaris; Z79.899 Other long term (current) drug therapy; Z71.85 Encounter for immunization safety counseling; Z86.19 Personal history of other infectious and parasitic diseases | CPT/HCPCS: 99214 ==

== ENCOUNTER 2024-01-02 13:20 | Oncology outpatient (recurring) (ONCR) | payer MEDICARE, MEDICAID, SELFPAY ==
[2024-01-02 14:04] VITALS: BP 146/67; PULSE 78; RESP 16; TEMP 36.9; O2SAT 97
[2024-01-02] MEDS: acetaminophen 325 mg Tablet 650 MG PO (14:09)
[2024-01-02] MEDS: methylPREDNISolone sod succ 40 mg/mL INJ IVP (14:12)
[2024-01-02] MEDS: sodium chloride 0.9% 250 ML 75 ML IV (14:13)
[2024-01-02] MEDS: diphenhydrAMINE 50 mg/mL SDV 1mL 25 MG IVP (14:19)
[2024-01-02] MEDS: abatacept 1,000 MG in sodium chloride 0.9% (100 ml) 100 ML 200 MG IV (14:52)
[2024-01-02 15:39] VITALS: BP 164/65; PULSE 71; RESP 16; O2SAT 99
== END 2024-01-16 23:59 | disposition home or self-care (01) ==
LOC: ONCMED 13:21
PROVIDERS: PCP Family Medicine; Visit Provider Internal Medicine Rheumatology
DX: L40.50 Arthropathic psoriasis, unspecified (principal)
CPT/HCPCS: 96365; A4222; J0129; J1200; J2919; J7050

== ENCOUNTER 2024-01-30 13:05 | Oncology outpatient (recurring) (ONCR) | payer MEDICARE, MEDICAID, SELFPAY ==
[2024-01-30] MEDS: sodium chloride 0.9% 250 ML 75 ML IV (14:48)
[2024-01-30] MEDS: acetaminophen 325 mg Tablet 650 MG PO (14:48)
[2024-01-30] MEDS: diphenhydrAMINE 50 mg/mL SDV 1mL 25 MG IVP (14:49)
[2024-01-30] MEDS: methylPREDNISolone sod succ 40 mg/mL INJ IVP (14:54)
[2024-01-30] MEDS: abatacept 1,000 MG in sodium chloride 0.9% (100 ml) 100 ML 200 MG IV (15:18)
== END 2024-02-16 23:59 | disposition home or self-care (01) ==
LOC: ONCMED 13:06
PROVIDERS: PCP Family Medicine; Visit Provider Internal Medicine Rheumatology
DX: L40.50 Arthropathic psoriasis, unspecified (principal); Z79.899 Other long term (current) drug therapy
CPT/HCPCS: 96365; 96375; A4222; J0129; J1200; J2919; J7050

== ENCOUNTER 2024-02-11 08:05 | Outpatient (CLI) | payer MEDICARE, MEDICAID, SELFPAY ==
[2024-02-11 08:31] LABS: Basophils % 0.5 %; Eosinophils # 0.1 10^3/uL (0.0-0.8); Eosinophils % 0.8 %; Hematocrit 31.5 % (36-47); Lymphocytes # 2.2 10^3/uL (0.8-4.8); Lymphocytes % 25.1 %; Mean Corpuscular HGB Conc 32.1 g/dL (30-55); Mean Corpuscular Hemoglobin 28.5 pg (27-33); Mean Corpuscular Volume 88.7 fl (85-98); Mean Platelet Volume 9.2 fL (7.4-10.4); Monocytes # 0.6 10^3/uL (0.2-0.9); Monocytes % 6.7 %; Neutrophils # 5.69 10^3/uL (1.8-7.7); Neutrophils % 66.4 %; Nucleated Red Blood Cells % 0 %; Platelet Count 314 10^3/cmm (157-399); Red Blood Count 3.55 10^6/uL (3.85-5.65); Red Cell Distribution Width 12.1 % (12.1-15.1); White Blood Count 8.56 10^3/uL (3.29-11.43)
[2024-02-11 08:52] LABS: Alanine Aminotransferase 13 U/L (0-33); Albumin Level 3.8 g/dL (3.5-5.2); Alkaline Phosphatase 113 U/L (35-105); Anion Gap 20.2 (5-19); Aspartate Amino Transferase 16 U/L (0-32); Blood Urea Nitrogen 30 mg/dL (8-23); Calcium 8.3 mg/dL (8.5-10.5); Carbon Dioxide 19 mmol/L (22-29); Chloride 93 mmol/L (98-107); Globulin 2.5 g/dL (1.3-4.6); Glucose 154 mg/dL (65-115); Osmolality Calculated 275 mOsm/kg (285-295); Potassium 4.2 mmol/L (3.5-5.1); Sodium 128 mmol/L (136-145); Total Bilirubin 0.3 mg/dL (0.15-1.2); Total Protein 6.3 g/dL (6.6-8.7)
== END 2024-02-11 08:06 | disposition home or self-care (01) ==
LOC: LAB 08:09
PROVIDERS: PCP Family Medicine; Visit Provider Internal Medicine Gastroenterology
DX: K75.4 Autoimmune hepatitis (principal)
CPT/HCPCS: 36415; 80053; 85025

== ENCOUNTER 2024-02-27 13:00 | Oncology outpatient (recurring) (ONCR) | payer MEDICARE, MEDICAID, SELFPAY ==
[2024-02-27 14:00] VITALS: BP 162/68; PULSE 73; RESP 16; TEMP 36.8; O2SAT 99
[2024-02-27] MEDS: acetaminophen 325 mg Tablet 650 MG PO (14:17)
[2024-02-27] MEDS: sodium chloride 0.9% 250 ML 75 ML IV (14:18)
[2024-02-27] MEDS: methylPREDNISolone sod succ 40 mg/mL INJ IVP (14:19)
[2024-02-27] MEDS: diphenhydrAMINE 50 mg/mL SDV 1mL 25 MG IVP (14:21)
[2024-02-27] MEDS: abatacept 1,000 MG in sodium chloride 0.9% (100 ml) 100 ML 200 MG IV (15:12)
[2024-02-27 15:50] VITALS: BP 164/64; TEMP 37.4
== END 2024-03-17 23:59 | disposition home or self-care (01) ==
LOC: ONCMED 13:00
PROVIDERS: PCP Family Medicine; Visit Provider Internal Medicine Rheumatology
DX: L40.50 Arthropathic psoriasis, unspecified (principal); Z79.899 Other long term (current) drug therapy
CPT/HCPCS: 96365; 96375; A4222; J0129; J1200; J2919; J7050

== ENCOUNTER 2024-03-05 07:18 | Emergency (ER) | payer MEDICARE, MEDICAID, SELFPAY ==
[2024-03-05] VITALS (21 sets, daily range): BP systolic 81–194; BP diastolic 41–66; PULSE 76–102; RESP 16–33; TEMP 36.6; O2SAT 91–100; BMI 27.4
--- NOTE | 2024-03-05 07:22 | CT_ITS ---
WS: [id number] CT HEAD NONCONTRAST HISTORY: Encephalopathy, altered mental status TECHNIQUE: Contiguous axial imaging performed through the brain in 2.5 mm imaging. Bone and soft tiss ue windows. Sagittal and coronal reformats reviewed. All CT scans at [facility] use at least one of these dose optimization techniques: automated exposure control; mA and/or kV adjustment per pa tient size (includes targeted exams where dose is matched to clinical indication); or iterative recon struction. DLP: 1566.38 mGy.cm COMPARISON: 06/15/2023 No acute intracranial hemorrhage, midline shift or mass effect. Minimal cerebral atrophy. There is a new area of decreased attenuation with mild sulcal effacement in the posterior RIGHT parietal lobe which is suspicious for a subacute to acute infarct. Mild small ve ssel disease. Ventricles: Normal size with no hydrocephalus. No inferior displacement of the cerebellar tonsils. Paranasal sinuses: As visualized are clear. Mastoid air cells: Well pneumatized. Calvarium and scalp: Skull is intact with no soft tissue edema or swelling. CT/CT head wo con* [id number] IMPRESSION: 1. No acute intracranial hemorrhage or edema. 2. Subtle area of sulcal effacement and decreased attenuation involving the po sterior RIGHT parietal lobe. Evolving infarct is not excluded. 3. Otherwise mild small vessel ischemic disease. Notified Rosangela Lutz MD at 03/05/2024 8:05 AM.
--- NOTE | 2024-03-05 07:22 | XR_ITS ---
WS: [id number] PORTABLE CHEST HISTORY: Weakness COMPARISON: 06/15/2023 Mild pulmonary hyperinflation. No mass. Mild stranding posterior to the LEFT heart consistent with at electasis. No pleural effusion or pneumothorax. Cardiac size: Normal. Mediastinum/Aorta: Normal mediastinum. No osseous abnormality seen. XR/XR chest 1V portable [id number] IMPRESSION: 1. No pneumonia. 2. Suspect minimal subsegmental atelectasis posterior to the LEFT heart. 3. Mild emphysema.
--- NOTE | 2024-03-05 07:23 | ECG_ITS ---
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 Measurements Intervals [place] Rate: 95 P: 62 NM: 152 QRS: 49 QRSD: 99 T: 64 QT: 337 QTc: 425 Interpretive Statements SINUS RHYTHM Compared to ECG 06/15/2023 13:25:43 Sinus bradycardia no longer present Electronically Signed On 03-06-2024 0:18:19 CDT by Elliot Jones M.D. [id number]
[2024-03-05 07:25] LABS: ABG PCO2 36.5 mmHg (35-45); ABG PH Result 7.33 (7.35-7.45); Alveolar-Arterial Oxygen Gradi 0.1 mmHg (5-10); Blood Gas Operator Identificat AMH; Blood Gas Sample Site Brachial, right; Blood Gas Sample Type Arterial; HCO3 ABG 19.3 mmol/L (22-26); HGB O2 Sat 97.5 % (95-100); Ionized Calcium Level - ABG 1.1 mmol/L (1.1-1.4); Methemoglobin 0.1 % (0.4-1.5); Oxygen Saturation ABG 98.6; Potassium Level - ABG 4.3 mmol/L (3.5-5.0); Total Hemoglobin 10.8 g/dL (12-16)
[2024-03-05 07:32] LABS: Glucose Point of Care 172 mg/dL (70-110)
[2024-03-05 07:41] LABS: Basophils % 0.2 %; Eosinophils # 0.1 10^3/uL (0.0-0.8); Eosinophils % 0.4 %; Hematocrit 33.9 % (36-47); Lymphocytes # 3.8 10^3/uL (0.8-4.8); Lymphocytes % 21.3 %; Mean Corpuscular HGB Conc 32.7 g/dL (30-55); Mean Corpuscular Hemoglobin 28.5 pg (27-33); Mean Corpuscular Volume 87.1 fl (85-98); Mean Platelet Volume 9.1 fL (7.4-10.4); Monocytes # 1.3 10^3/uL (0.2-0.9); Monocytes % 7.3 %; Neutrophils # 12.47 10^3/uL (1.8-7.7); Neutrophils % 69.9 %; Nucleated Red Blood Cells % 0 %; Platelet Count 282 10^3/cmm (157-399); Red Blood Count 3.89 10^6/uL (3.85-5.65); Red Cell Distribution Width 12.5 % (12.1-15.1); White Blood Count 17.86 10^3/uL (3.29-11.43)
[2024-03-05 07:53] LABS: Troponin(5th) Baseline 20 ng/L (0-10)
[2024-03-05] MEDS: sodium chloride 0.9% 1,000 ML 999 ML IV ×3 (07:53→09:43)
[2024-03-05 07:54] LABS: Alanine Aminotransferase 14 U/L (0-33); Albumin Level 4.1 g/dL (3.5-5.2); Alkaline Phosphatase 144 U/L (35-105); Anion Gap 21.6 (5-19); Aspartate Amino Transferase 15 U/L (0-32); Blood Urea Nitrogen 44 mg/dL (8-23); C Reactive Protein 163.1 mg/L (0.0-4.9); Calcium 8.7 mg/dL (8.5-10.5); Carbon Dioxide 18 mmol/L (22-29); Chloride 91 mmol/L (98-107); Creatinine Clr Calc Pharmacy 17.9445; Globulin 2.8 g/dL (1.3-4.6); Glucose 184 mg/dL (65-115); Osmolality Calculated 278 mOsm/kg (285-295); Potassium 4.6 mmol/L (3.5-5.1); Sodium 126 mmol/L (136-145); Total Bilirubin 0.6 mg/dL (0.15-1.2); Total Protein 6.9 g/dL (6.6-8.7)
[2024-03-05 08:05] LABS: Acetaminophen < 5.0 ug/mL (10-30); Alcohol Level < 10 mg/dL (0-10); Salicylate < 0.3 mg/dL (3-10)
--- NOTE | 2024-03-05 08:10 | PC.PHAR ---
Pt unable to verify medications or last taken. Med rec completed from current med list from [facility]
[2024-03-05 08:30] LABS: Urine Appearance Clear (CLEAR); Urine Color Yellow (Yellow); pH Urine 5 (5-7)
[2024-03-05 08:31] LABS: Bilirubin Urine Neg (Negative); Blood Urine Neg (Negative); Glucose Urine UA Norm (Normal); Ketones Urine Negative (Negative); Leukocyte Esterase Urine Negative (Negative); Nitrate Urine Negative (Negative); Protein Urine Neg (Negative); Specific Gravity, Urine 1.005 (1.005-1.030); Urobilinogen Urine Norm (Negative)
--- NOTE | 2024-03-05 08:31 | CT_ITS ---
WS: [id number] CT ANGIOGRAM CEREBRAL AND CAROTID ARTERIES HISTORY: Possible stroke TECHNIQUE: CT angiogram is performed of the carotid and cerebral arteries. During arterial injection imaging is obtained from the skull vertex to the aortic arch in 1.25 mm imaging. Coronal and sagittal reformats are submitted. Additional multi planar reformats of the carotid and cerebral arteries are submitted, MIP imaging also reviewed. NASCET criteria utilized. All CT scans at [facility] us e at least one of these dose optimization techniques: automated exposure control; mA and/or kV adjust ment per patient size (includes targeted exams where dose is matched to clinical indication); or iter ative reconstruction. CONTRAST: Omnipaque 350; 100 mL IV. DLP: 454.72 mGy.cm COMPARISON: Noncontrast CT head 03/05/2024 Carotid Angiogram: Right carotid: Common carotid artery: Arises normally from the innominate artery. No significant plaque or stenosis. Mild intimal thickening. Internal carotid artery: Increasing calcified plaque and intimal thickening at the bifurcation. Near complete occlusion of the proximal RIGHT ICA. There does appear to be a string sign remaining with ve ry limited flow. Near occlusion. External carotid artery: Patent. Left carotid: Common carotid artery: Arises normally from the aortic arch. Small amount of calcified plaque and int imal thickening at the cervical bifurcation. Internal carotid artery: Calcified plaque and intimal thickening at the bifurcation. Stenosis estimat ed at just less than 50%. External carotid artery: Patent. Right vertebral artery: Unremarkable. Left vertebral artery: Small caliber but patent. Subclavian arteries: Small amount of plaque at the origin of the LEFT subclavian artery. There is als o mild intimal thickening and scattered soft plaque in the proximal subclavian artery but no high-gra de stenosis. Upper thorax: Breathing and motion artifact. Mildly dilated pulmonary artery. Extensive calcification in the thorax. There is a fluid distended esophagus. Fluid is descendent the esophagus to the lung a pex. Thyroid gland: Normal. Osseous structures: Moderate cervical spondylosis. CEREBRAL ANGIOGRAM: Intracranial vertebral arteries: No stenosis. Very small amount of plaque in the distal RIGHT vertebr al artery. Basilar artery: No significant stenosis or occlusion. No aneurysm. Intracranial Internal carotid arteries: Increasing plaque involving the cavernous carotid arteries wi th at least 60% stenosis bilaterally. No occlusions. Slightly greater plaque on the RIGHT extends sup raclinoid. Middle cerebral arteries: Normal M1 and M2 segments. There is a paucity of vessels in the RIGHT poste rior parietal lobe at the site of the suspected infarct. Suspect thrombosed distal middle cerebral ar justen. Anterior cerebral arteries and ACOM: Normal. Posterior cerebral arteries and PCOM's: Normal. Dural venous sinuses are normally enhancing. Mastoid air cells: Normal. Paranasal sinuses: Normal. Calvarium: Normal. CT/CT angio headneck* [id number] IMPRESSION: 1. 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 String sign is present. Combination of calcified atherosclerotic plaque and soft plaque causing the michelle nosis. 2. Moderate bilateral atherosclerotic plaque through the cavernous carotid art eries with stenosis approaching 60%. 3. Paucity of vessels in the distal RIGHT MCA at the site of the previously de scribed suspected infarct. 4. Mild atherosclerotic plaque proximal LEFT subclavian artery. 5. Markedly fluid distended esophagus to the level of the lung apices. Patient is at risk for aspiration. Notified Rosangela Lutz MD at 03/05/2024 9:24 AM.
[2024-03-05 08:35] LABS: Amphetamines Screen Urine Negative (Negative); Barbiturates Screen Urine Negative (Negative); Benzodiazepines Screen Urine Negative (Negative); Cocaine Screen Urine Negative (Negative); Opiate Screen Urine Positive (Negative); PCP Screen Urine Negative (Negative); THC Screen Urine Negative (Negative)
[2024-03-05 08:36] LABS: Add Urine Culture? No; Bacteria Urine 1+ /hpf; Squamous Epithelial Cell Urine 0-4 /hpf (0-5)
--- NOTE | 2024-03-05 08:39 | W.ED.AMS ---
HPI - Altered Mental Status General: Chief Complaint: Altered Mental Status Stated Complaint: RESP DISTRESS Time Seen by Provider: 03/05/24 07:22 History of Present Illness: 73-year-old female with history of chronic pain syndrome disease, chronic kidney disease, hypertension, hyperlipidemia, and rheumatoid arthritis who presents emergency room by ambulance unresponsive. Last known well time was last night. Apparently somewhere in the middle the night she got up and went to the bathroom. found her in the bathroom on the floor unresponsive around 6 30-6 45 this morning. On presentation she is maintaining her airway with occasional coughing fits but responds only minimally to pain. Narcan had no effect according to EMS. Apparently she was fine yesterday no issues. Related Data Home Medications Medication Instructions Recorded Confirmed abatacept (with maltose) [Orencia See Rx Instructions .Route .COMPLEX 02/12/23 03/05/24 (with maltose)] amitriptyline 50 mg tablet 50 mg PO BEDTIME 03/05/24 03/05/24 amlodipine 10 mg tablet 10 mg PO DAILY 03/05/24 03/05/24 linaclotide 290 mcg capsule 290 mcg PO QPM 03/05/24 03/05/24 (Linzess) Previous Rx's Medication Instructions Recorded docusate sodium 100 mg capsule 100 mg PO BID #60 caps 01/22/22 lisinopril 30 mg tablet 30 mg PO DAILY #90 tabs 02/15/23 cholecalciferol (vitamin D3) 1,250 50,000 unit PO .once weekly #12 05/22/23 mcg (50,000 unit) capsule caps oxycodone 15 mg tablet 15 mg PO QID PRN pain 30 days #120 12/26/23 tabs oxycodone 15 mg tablet 15 mg PO QID PRN pain 30 days #120 12/26/23 tabs prednisone 5 mg tablet 5 mg PO DAILY #90 tabs 01/01/24 prednisone 20 mg tablet See Rx Instructions .Route 01/28/24 .COMPLEX #30 tabs ondansetron 4 mg disintegrating 4 mg PO Q8H PRN nausea and 02/20/24 tablet vomiting #60 tabs Allergies Allergy/AdvReac Type Severity Reaction Status Date / Time codeine Allergy Mild Unknown Verified 01/01/24 11:33 isosorbide Allergy Mild Unknown Verified 01/01/24 11:33 latex Allergy ALGY-Rash Verified 01/01/24 11:33 leflunomide AdvReac Mild nausea and Verified 01/01/24 11:33 vomiting azathioprine [From Imuran] AdvReac Unknown ADR-Vomitin Verified 01/01/24 11:33 g Review of Systems Narrative: Constitutional symptoms: Negative except as documented in HPI. Skin symptoms: Negative except as documented in HPI. Eye symptoms: Negative except as documented in HPI. ENMT symptoms: Negative except as documented in HPI. Respiratory symptoms: Negative except as documented in HPI. Cardiovascular symptoms: Negative except as documented in HPI. Gastrointestinal symptoms: Negative except as documented in HPI. Genitourinary symptoms: Negative except as documented in HPI. Musculoskeletal symptoms: Negative except as documented in HPI. Neurologic symptoms: Negative except as documented in HPI. Psychiatric symptoms: Negative except as documented in HPI. Endocrine symptoms: Negative except as documented in HPI. PFSH ED PFSH: Medical History Psoriatic arthritis Psoriatic arthritis Gouty arthritis Cellulitis of right foot Right foot pain Abscess of right foot Cellulitis of foot, right Dizziness Pre-syncope Insomnia Autoimmune hepatitis Plaque psoriasis Dysfunctional gallbladder Inflammatory arthritis Psoriasis Encounter for screening for other viral diseases High risk medication use Immunization counseling Essential (primary) hypertension Peripheral neuropathy Hyperlipemia Depression Surgical History History of appendectomy History of section History of carpal tunnel surgery Family History Mother Cancer Other Aneurysm COPD (chronic obstructive pulmonary disease) Social History Smoking and tobacco/nicotine status: never used tobacco/nicotine Alcohol intake: former Current gender identity: Female Physical Exam Narrative: General: responds minimally to painful stimuli. Skin: Warm, dry Head: Normocephalic, atraumatic. Neck: Supple, trachea midline. Eye: Extraocular movements are intact. Ears, nose, mouth and throat: Dry oral mucosa. Cardiovascular: Regular rate and rhythm, Normal peripheral perfusion. Respiratory: Lungs are clear to auscultation, respirations are non-labored, breath sounds are equal, Symmetrical chest wall expansion. Gastrointestinal: Soft, Non distended, Normal bowel sounds. Musculoskeletal: no deformity. Neurological: Not Alert and oriented, No obvious focal neurological deficit observed. Psychiatric: unable to assess. Urinary Catheter Management: Morton: Cath Placed During This Visit: yes Urinary Catheter Date of Insertion: 03/05/24 Urinary Catheter Time of Insertion: 08:11 Course Vital Signs: Vital signs: Vital Signs Temperature 97.8 F 03/05/24 07:27 Pulse Rate 83 03/05/24 09:40 Respiratory Rate 21 H 03/05/24 09:40 Blood Pressure 100/50 03/05/24 09:40 Pulse Oximetry 91 03/05/24 09:20 Oxygen Delivery Me thod Room Air 03/05/24 07:27 MDM - Altered Mental Status Medical Decision Making Medical decision making: Differential diagnosis including but not limited to and based on the above HPI, review of systems and physical exam: In this patient with altered mental status: Stroke. Hypoglycemia. Metabolic encephalopathy. Infections such as pneumonia, urinary tract infection, Covid-19, Influenza. Electrolyte abnormalities such as hypernatremia. Renal failure / uremia. Hepatic encephalopathy. Hypoxemia. Hypercapnic respiratory failure. Psychosis. Drug or alcohol intoxication. Medication overdose. Orders placed to evaluate differential diagnosis based on the above differential, HPI and physical exam CT of the head without contrast: Subtle area of sulcal effacement and decreased attenuation involving the posterior right parietal lobe. This could be an evolving infarct. EKG: Time 7:23 AM. Rate 95. Normal sinus rhythm, No ST-T changes, no ectopy, normal LA & QRS intervals, This was reviewed and interpreted by myself the ER physician at 7:25 AM Chest x-ray: No acute process. No infiltrate. No pneumothorax. This was reviewed and interpreted by myself the ER physician. Consultation: I consulted Dr. Teran with neurology shortly after results of CT scan were reported. He has seen the patient in the emergency room. He does agree with transfer at this point. Lab Review: Laboratory results were reviewed and interpreted by myself the emergency room physician. Patient has significant leukocytosis with a white count of 17.8. Hemoglobin stable at 11. BUN and creatinine are significantly elevated over her baseline at 44 and 2.6. Her normal creatinine is around 1.7. Sodium is 126. Recently she was 128. She is always a bit low. Usually in the low 130s. Drug screen positive for opiates. Tylenol and salicylates were negative. Urinalysis does not show signs of infection. CTA of the head and neck: Near complete occlusion of the cervical right ICA. String sign. Moderate stenosis of the cavernous carotid arteries. Paucity of vessels in the area related to the parietal possible stroke. I reviewed the patient's medical record. Reexamination: Patient was initially hypertensive. However she is become hypotensive. She has a white count. I do not have any source of infection but I am going to treat her for possible sepsis. Antibiotics, blood cultures, she has received 3 L of fluid. I discussed last known well time with family. The last time has been actually spoke with her was a little after midnight. And somewhere around 2 AM she had gotten up to go the bathroom. I have spoken extensively with family about findings. Expressed understanding. They agree with transfer to [place] to a tertiary care center. Consultation: [facility] [place]. He agrees to transfer and feels emergency room would be most appropriate so she can continue to be evaluated there. Likely an MRI/MRA at that time. Assessment and plan: Cerebrovascular accident Encephalopathy Unresponsive Acute on chronic renal failure initially hypertensive Hypotension Possible sepsis ?Patient has been accepted to the emergency room in [place] at [facility] by Dr. Perez. ?This is likely a stroke last known well time was within the last 12 hours and she might could benefit from some sort of intervention. Also she has been fairly unstable with high iron and low blood pressures. -Patient not requiring pressors. No clear source of sepsis but we are giving meropenem and bank and appropriate septic fluids. Blood cultures have been drawn. -3 L normal saline bolus. Fluid volumes based on ideal body weight. -Broad-spectrum antibiotics were administered. -Sepsis quality measures. -Lactic acid with a reflex was ordered. -Blood cultures were ordered. -I discussed the patient with the hospitalist on-call who is admitting the patient. - Discussed findings and plan with patient. Answered any questions. - All laboratory values were reviewed and interpreted personally by myself, the ER physician - All imaging was reviewed and interpreted personally by myself, the ER physician. - Evaluation and treatment of this problem were appropriate in the emergency setting Critical care -I spent a total of >70 minutes of critical care time managing the patient, independent of any other practitioner. -The time involved in the performance of separately reportable procedures was not counted towards critical care time. Lab Data 03/05/24 07:28 03/05/24 07:28 Radiology Impressions Chest X-Ray 03/05/24 07:22 IMPRESSION: 1. No pneumonia. 2. Suspect minimal subsegmental atelectasis posterior to the LEFT heart. 3. Mild emphysema. Head CT 03/05/24 07:22 IMPRESSION: 1. No acute intracranial hemorrhage or edema. 2. Subtle area of sulcal effacement and decreased attenuation involving the posterior RIGHT parietal lobe. Evolving infarct is not excluded. 3. Otherwise mild small vessel ischemic disease. Notified Rosangela Lutz MD at 03/05/2024 8:05 AM. Head/Neck CTA 03/05/24 08:31 IMPRESSION: 1. 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 String sign is present. Combination of calcified atherosclerotic plaque and soft plaque causing the stenosis. 2. Moderate bilateral atherosclerotic plaque through the cavernous carotid arteries with stenosis approaching 60%. 3. Paucity of vessels in the distal RIGHT MCA at the site of the previously described suspected infarct. 4. Mild atherosclerotic plaque proximal LEFT subclavian artery. 5. Markedly fluid distended esophagus to the level of the lung apices. Patient is at risk for aspiration. Notified Rosangela Lutz MD at 03/05/2024 9:24 AM. Laboratory Results WBC 17.86 10^3/uL (3.29-11.43) H 03/05/24 07:28 RBC 3.89 10^6/uL (3.85-5.65) 03/05/24 07:28 Hgb 11.10 g/dL (11.27-16.99) L 03/05/24 07:28 Hct 33.9 % (36-47) L 03/05/24 07:28 MCV 87.1 fl (85-98) 03/05/24 07:28 MCH 28.5 pg (27-33) 03/05/24 07: MCHC 32.7 g/dL (30-55) 03/05/24 07:28 RDW 12.5 % (12.1-15.1) 03/05/24 07:28 Plt Count 282 10^3/cmm (157-399) 03/05/24 07:28 MPV 9.1 fL (7.4-10.4) 03/05/24 07: Neut % (Auto) 69.9 % 03/05/24 07:28 Lymph % (Auto) 21.3 % 03/05/24 07:28 Clinch % (Auto) 7.3 % 03/05/24 07:28 Eos % (Auto) 0.4 % 03/05/24 07:28 Baso % (Auto) 0.2 % 03/05/24 07:28 Neut # (Auto) 12.47 10^3/uL (1.8-7.7) H 03/05/24 07:28 Lymph # (Auto) 3.8 10^3/uL (0.8-4.8) 03/05/24 07:28 Clinch # (Auto) 1.3 10^3/uL (0.2-0.9) H 03/05/24 07:28 Eos # (Auto) 0.1 10^3/uL (0.0-0.8) 03/05/24 07: Baso # (Auto) 0.0 10^3/uL (0.0-0.1) 03/05/24 07:28 Nucleated RBC % (auto) 0 % 03/05/24 07: Nucleated RBCs # 0.0 /100WBC 03/05/24 07:28 Specimen Type Arterial 03/05/24 07:15 Sample Site Brachial, right 03/05/24 07:15 ABG pH 7.33 (7.35-7.45) L 03/05/24 07:15 ABG pCO2 36.5 mmHg (35-45) 03/05/24 07:15 ABG pO2 103.0 mmHg (80.0-100.0) H 03/05/24 07:15 ABG HCO3 19.3 mmol/L (22-26) L 03/05/24 07:15 ABG O2 Saturation 98.6 03/05/24 07:15 ABG Base Excess -6.0 mmol/L (-2.0-2.0) L 03/05/24 07:15 Demar Test N/a 03/05/24 07:15 A-a O2 Gradient 0.1 mmHg (5-10) L 03/05/24 07:15 Hematocrit 33.0 % (37-47) L 03/05/24 07:15 Hgb O2 Saturation 97.5 % (95-100) 03/05/24 07:15 Carboxyhemoglobin 1.0 %THgb (0.4-20.1) 03/05/24 07:15 Methemoglobin 0.1 % (0.4-1.5) L 03/05/24 07:15 Total Hemoglobin 10.8 g/dL (12-16) L 03/05/24 07:15 Sodium 125.0 mmol/L (131-143) L 03/05/24 07:15 Potassium 4.3 mmol/L (3.5-5.0) 03/05/24 07:15 Glucose 180.0 mg/dL (70-115) H 03/05/24 07:15 Ionized Calcium 1.1 mmol/L (1.1-1.4) 03/05/24 07:15 O2 Delivery Device None 03/05/24 07:15 Fitter Tacker ID Amh 03/05/24 07:15 Sodium 126 mmol/L (136-145) L 03/05/24 07:28 Potassium 4.6 mmol/L (3.5-5.1) 03/05/24 07:28 Chloride 91 mmol/L (98-107) L 03/05/24 07:28 Carbon Dioxide 18 mmol/L (22-29) L 03/05/24 07:28 Anion Gap 21.6 (5-19) H 03/05/24 07:28 BUN 44 mg/dL (8-23) H 03/05/24 07:28 Creatinine 2.6 mg/dL (0.5-0.9) H 03/05/24 07:28 GFR Calculation Not Reportable 03/05/24 07:28 Glucose 184 mg/dL (65-115) H 03/05/24 07:28 POC Glucose 172 mg/dL (70-110) H 03/05/24 07:24 Calculated Osmolality 278 mOsm/kg (285-295) L 03/05/24 07:28 Lactic Acid 2.0 mmol/L (0.5-2.2) 03/05/24 07:28 Calcium 8.7 mg/dL (8.5-10.5) 03/05/24 07:28 Total Bilirubin 0.6 mg/dL (0.15-1.2) 03/05/24 07:28 AST 15 U/L (0-32) 03/05/24 07:28 ALT 14 U/L (0-33) 03/05/24 07:28 Alkaline Phosphatase 144 U/L (35-105) H 03/05/24 07:28 Troponin T Baseline 20 ng/L (0-10) H 03/05/24 07:28 C-Reactive Protein 163.1 mg/L (0.0-4.9) H 03/05/24 07:28 Total Protein 6.9 g/dL (6.6-8.7) 03/05/24 07:28 Albumin 4.1 g/dL (3.5-5.2) 03/05/24 07:28 Globulin 2.8 g/dL (1.3-4.6) 03/05/24 07:28 Urine Color Yellow (Yellow) 03/05/24 08:06 Urine Appearance Clear (CLEAR) 03/05/24 08:06 Urine pH 5 (5-7) 03/05/24 08:06 Ur Specific [place] 1.005 (1.005-1.030) 03/05/24 08:06 Urine Protein Neg (Negative) 03/05/24 08:06 Urine Glucose (UA) Norm (Normal) 03/05/24 08:06 Urine Ketones Negative (Negative) 03/05/24 08:06 Urine Blood Neg (Negative) 03/05/24 08:06 Urine Nitrate Negative (Negative) 03/05/24 08:06 Urine Bilirubin Neg (Negative) 03/05/24 08:06 Urine Urobilinogen Norm mg/dL (Negative) 03/05/24 08:06 Ur Leukocyte Esterase Negative (Negative) 03/05/24 08:06 Urine RBC None /hpf (0-2) 03/05/24 08:06 Urine WBC None /hpf (0-5) 03/05/24 08:06 Ur Squamous Epith Cells 0-4 /hpf (0-5) H 03/05/24 08:06 Amorphous Sediment Not Reportable 03/05/24 08:06 Urine Bacteria 1+ /hpf (NONE) H 03/05/24 08:06 Salicylates < 0.3 mg/dL (3-10) L 03/05/24 07:28 Urine Opiates Screen Positive ng/mL (Negative) H 03/05/24 08:06 Acetaminophen < 5.0 ug/mL (10-30) L 03/05/24 07:28 Ur Barbiturates Screen Negative ng/mL (Negative) 03/05/24 08:06 Ur Phencyclidine Scrn Negative ng/mL (Negative) 03/05/24 08:06 Ur Amphetamines Screen Negative ng/mL (Negative) 03/05/24 08:06 U Benzodiazepines Scrn Negative ng/mL (Negative) 03/05/24 08:06 Urine Cocaine Screen Negative ng/mL (Negative) 03/05/24 08:06 U Marijuana (THC) Screen Negative ng/mL (Negative) 03/05/24 08:06 Ethyl Alcohol < 10 mg/dL (0-10) 03/05/24 07:28 Coronavirus (PCR) Negative (Negative) 03/05/24 08:15 Influenza A (PCR) Negative (Negative) 03/05/24 08:15 Influenza Type B (PCR) Negative (Negative) 03/05/24 08:15 RSV (PCR) Negative (Negative) 03/05/24 08:15 All radiology interpretation(s) finalized by discharge Discharge Plan Discharge Patient Disposition: Xfer Short-Term Hosp Clinical Impression: Cerebrovascular accident, Sepsis, Encephalopathy acute, Acute on chronic renal failure, Chronic hyponatremia, Accelerated hypertension, Hypotension Condition: Stable Referrals: Grupo Schaefer DO [Primary Care Provider] - Patient Instructions: Altered Mental Status (ED) Coding Level of Care Code ED [employer] Web Application Developer for Yasemin Jay
[2024-03-05] MEDS: iohexol 350 mg/mL 500 mL Btl (per mL) IV (08:58)
[2024-03-05 09:06] LABS: Covid PCR NEGATIVE (Negative); Influenza A NEGATIVE (Negative); Influenza B NEGATIVE (Negative); Respiratory Syncytial Virus Ce NEGATIVE (Negative)
--- NOTE | 2024-03-05 09:23 | ECG_ITS ---
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 Measurements Intervals [place] Rate: 83 P: 67 FL: 197 QRS: 52 QRSD: 109 T: 45 QT: 393 QTc: 462 Interpretive Statements SINUS RHYTHM LOW QRS VOLTAGE IN PRECORDIAL LEADS [QRS DEFLECTION < 1.0 mV IN CHEST LEADS] POSSIBLE RIGHT VENTRICULAR CONDUCTION DELAY [RSR (QR) IN V1/V2] MODERATE ST DEPRESSION [0.05+ mV ST DEPRESSION] Compared to ECG 03/05/2024 07:23:13 Low QRS voltage now present ST (T wave) deviation now present Electronically Signed On 03-06-2024 22:41:14 CDT by Elliot Jones M.D. [id number]
[2024-03-05] MEDS: norepinephrine 4 MG/250 ML BAG 30 MG IV (09:35)
[2024-03-05] MEDS: meropenem 500 mg SDV IVP (09:35)
[2024-03-05] MEDS: linezolid premix 600 MG/300 ML PREMIX 300 MG IV (09:37)
[2024-03-05] MEDS: naloxone 0.4 mg/ml SDV 0.8 MG IVP (10:01)
--- NOTE | 2024-03-05 10:15 | P.CONIM_ITS ---
Providers/Reason For Consult 2 Consulting Physician/Specialty*: Bret Teran MD neurology and epilepsy Reason for Consult*: Right parietal lobe infarction and severe stenosis of the right internal carotid artery and encephalopathy Primary Care Provider: Grupo Schaefer DO History of Present Illness History of Present Illness Usman Hilliard is a 73 year old female with a history of essential hypertension, bilateral carotid bruits, psoriatic arthritis, chronic kidney disease stage III, vitamin D deficiency, and gouty arthritis. According to the patient's and granddaughter, the patient was in her usual state of health on 03/04/2024. According to the granddaughter the patient went to [facility] yesterday on 03/04/2024. Around 8 PM on 03/04/2024 the granddaughter stated the patient attempted to contact her daughter but the daughter missed the call. The patient was reported to go to bed last night, exact time not recalled by the patient's . The patient stated that around 2 AM he woke up and the patient was lying in bed and her light on her cellular phone was on. The stated that he asked his to turn off the light on the cellular phone. He stated that his stated, I am trying . According to the patient's the patient never turn the light off on the cellular phone. Patient stated that he again woke up around 5 AM and noticed the light was on in the bathroom. He stated he did not check on his since it is not unusual for his to go to the bathroom during the night. The stated that around 6 PM he again woke up and noticed the light was still alone in the bathroom and when he entered the bathroom he found his down unconscious. According to the granddaughter, the patient had reported experiencing GI upset with nausea and vomiting the previous weekend but according to the granddaughter the patient stated that she felt better on 03/04/2024 and therefore did not seek immediate medical attention. Noncontrast head CT was obtained in the emergency room on 03/05/2024 and revealed the following: Subtle area of sulcal effacement and decreased attenuation involving the posterior RIGHT parietal lobe. Evolving infarct is not excluded. I was contacted by the ER physician and I recommended that the patient undergo CT angiogram of the head and neck since the patient's last known well could not be determined. Since the patient's last known well could not be determined, patient was not a candidate for intravenous thrombolytics and no intravenous thrombolytics were administered. CT angiogram of the head and neck was obtained on 03/05/2024 and revealed the following: IMPRESSION: 1. 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 String sign is present. Combination of calcified atherosclerotic plaque and soft plaque causing the stenosis. 2. Moderate bilateral atherosclerotic plaque through the cavernous carotid arteries with stenosis approaching 60%. 3. Paucity of vessels in the distal RIGHT MCA at the site of the previously described suspected infarct. 4. Mild atherosclerotic plaque proximal LEFT subclavian artery. 5. Markedly fluid distended esophagus to the level of the lung apices. Patient is at risk for aspiration. In view of the patient's CT angiogram findings and CT's findings the patient will be transferred for further evaluation at another facility to determine if patient is candidate for intra-arterial thrombolysis versus carotid endarterectomy as well as to address the markedly fluid dilatated esophagus and to address any potential sepsis. Glucose Accu-Chek 172 NIH score = 28 (level consciousness: No purposeful movement =3, questions not answered =2, and commands neither followed =2, no movement of the upper or lower extremities bilateral =4x4 =16, sensory no movement to painful stimuli applied to nailbeds on hands or feet =2, speech, patient with decreased level consciousness and not speaking =3). Drug allergies: Codeine type reaction unknown Isosorbide type reaction unknown Latex which resulted in a rash Leflunomide which resulted in nausea and vomiting Azathioprine which resulted in vomiting Current medications: Orencia to use as directed Amitriptyline 50 mg p.o. nightly Norvasc 10 mg p.o. daily Vitamin D3 50,000 international units p.o. weekly Colace 100 mg p.o. twice daily Linzess 290 mcg p.o. daily Lisinopril 30 mg p.o. daily Zofran 4 mg p.o. every 8 hours as needed for nausea vomiting Oxycodone 15 mg p.o. 4 times daily as needed for pain Prednisone 20 mg tablets to take as directed Prednisone 5 mg p.o. daily Past medical history: Bilateral carotid bruits Hypertension Psoriatic arthritis Common bile duct dilatation Vitamin D deficiency Chronic kidney disease stage III Cellulitis right foot Autoimmune hepatitis Dysfunctional gallbladder Insomnia Polynephritis Peripheral neuropathy Habits: The patient smoked but quit approximately 16 years ago Family history: Unknown Social history: Patient lives with her Review of Systems 2 General: Reports: ROS unobtainable due to medical condition Medications/Allergies Home Medications Medication Instructions Recorded Confirmed Last Taken Type docusate sodium 100 mg capsule 100 mg PO BID #60 caps 01/22/22 03/05/24 06/14/23 Rx abatacept (with maltose) [Orencia See Rx Instructions .Route .COMPLEX 02/12/23 03/05/24 05/25/23 History (with maltose)] lisinopril 30 mg tablet 30 mg PO DAILY #90 tabs 02/15/23 03/05/24 06/14/23 Rx cholecalciferol (vitamin D3) 1,250 50,000 unit PO .once weekly #12 05/22/23 03/05/24 Unknown Rx mcg (50,000 unit) capsule caps oxycodone 15 mg tablet 15 mg PO QID PRN pain 30 days #120 12/26/23 03/05/24 Unknown Rx tabs oxycodone 15 mg tablet 15 mg PO QID PRN pain 30 days #120 12/26/23 03/05/24 Unknown Rx tabs prednisone 5 mg tablet 5 mg PO DAILY #90 tabs 01/01/24 03/05/24 Unknown Rx prednisone 20 mg tablet See Rx Instructions .Route 01/28/24 03/05/24 Unknown Rx .COMPLEX #30 tabs ondansetron 4 mg disintegrating 4 mg PO Q8H PRN nausea and 02/20/24 03/05/24 Unknown Rx tablet vomiting #60 tabs amitriptyline 50 mg tablet 50 mg PO BEDTIME 03/05/24 03/05/24 Unknown History amlodipine 10 mg tablet 10 mg PO DAILY 03/05/24 03/05/24 Unknown History linaclotide 290 mcg capsule 290 mcg PO QPM 03/05/24 03/05/24 Unknown History (Linzess) Allergies Allergy/AdvReac Type Severity Reaction Status Date / Time codeine Allergy Mild Unknown Verified 01/01/24 11:33 isosorbide Allergy Mild Unknown Verified 01/01/24 11:33 latex Allergy ALGY-Rash Verified 01/01/24 11:33 leflunomide AdvReac Mild nausea and Verified 01/01/24 11:33 vomiting azathioprine [From Imuran] AdvReac Unknown ADR-Vomitin Verified 01/01/24 11:33 g Current Medications Generic Name Dose Route Start Last Admin Trade Name Danna PRN Reason Stop Dose Admin Norepinephrine Bitartrate 4 mg in 250 mls @ 0 mls/hr 03/05/24 09:30 03/05/24 10:04 Levophed IV 10 mcg/min .Q0M COLTEN 37.5 mls/hr Titration Protocol Per Protocol Linezolid 600 mg in 300 mls @ 300 mls/hr 03/05/24 09:28 03/05/24 09:37 Zyvox Premix IV 03/05/24 10:27 300 mls/hr ONCE ONE Administration Protocol Sodium Chloride 1,000 mls @ 999 mls/hr 03/05/24 09:36 03/05/24 09:43 Sodium Chloride 0.9% IV 03/05/24 10:36 999 mls/hr .Q1H1M ONE Administration PFSH Acute 2 PFSH: Medical History Psoriatic arthritis Psoriatic arthritis Gouty arthritis Cellulitis of right foot Right foot pain Abscess of right foot Cellulitis of foot, right Dizziness Pre-syncope Insomnia Autoimmune hepatitis Plaque psoriasis Dysfunctional gallbladder Inflammatory arthritis Psoriasis Encounter for screening for other viral diseases High risk medication use Immunization counseling Essential (primary) hypertension Peripheral neuropathy Hyperlipemia Depression Surgical History History of appendectomy History of section History of carpal tunnel surgery Family History Mother Cancer Other Aneurysm COPD (chronic obstructive pulmonary disease) Social History Smoking and tobacco/nicotine status: never used tobacco/nicotine Alcohol intake: former Current gender identity: Female Vitals/I&O/Wt Last Vital Signs Temp 97.8 F 03/05/24 07:27 Pulse 83 03/05/24 09:40 Resp 21 H 03/05/24 09:40 BP 100/50 03/05/24 09:40 Pulse Ox 91 03/05/24 09:20 O2 Del Method Room Air 03/05/24 07:27 03/04/24 03/05/24 03/05/24 22:59 06:59 14:59 Intake Total 1014.5 / 1014.5 Balance 1014.5 / 1014.5 Weight last 48 hrs Weight 150 lb Physical Exam 2 Narrative: Glucose Accu-Chek 172 NIH score = 28 (level consciousness: No purposeful movement =3, questions not answered =2, and commands neither followed =2, no movement of the upper or lower extremities bilateral =4x4 =16, sensory no movement to painful stimuli applied to nailbeds on hands or feet =2, speech, patient with decreased level consciousness and not speaking =3). Blood pressure 145/45 on IV dopamine Heart rate 101 bpm Respirations 30 Temperature 97.8 ?F O2 saturation 100% on room air The patient is lying in a supine position. Decerebrate posture. Pupils 3 to 4 mm with reaction to light bilaterally. Patient did have oculocephalic reflexes bilaterally. Voluntary gaze could not be assessed since patient has decreased level consciousness. Cranial nerves II through XII revealed no obvious facial weakness. Patient appeared to have intact corneal reflexes bilaterally. Motor testing unable to assess secondary to decreased level consciousness but patient did not withdrawal to painful stimuli applied to her nailbeds of her fingers or toes on either side. Deep tendon reflex revealed plantar responses bilaterally. There was no clonus. Sensory examination revealed no withdrawal to painful stimuli applied to her nailbeds on the upper or lower extremities. Double sensory stimulation could not be assessed secondary to decreased level consciousness. Due to decreased level consciousness patient was nonverbal. Throat clear. Lungs revealed no obvious wheezes. Heart reveals sinus tachycardia heart rate 101 bpm. Abdomen revealed positive bowel sounds although abdomen appears distended. Extremities were negative for cyanosis. Urinary Catheter Management: Morton: Cath Placed During This Visit: yes Urinary Catheter Date of Insertion: 03/05/24 Urinary Catheter Time of Insertion: 08:11 Data 03/05/24 07:28 03/05/24 07:28 Micro: Microbiology 03/05/24 08:45 Blood Culture - Preliminary Blood SPECIMEN COLLECTED 03/05/24 08:45 Blood Culture - Preliminary Blood SPECIMEN COLLECTED A&P Assessment and plan (1) Right hemisphere, cerebral infarction: Impression: 1. Subtle area of sulcal effacement and decreased attenuation involving the posterior RIGHT parietal lobe. Evolving infarct is not excluded. Paucity of vessels in the distal RIGHT MCA at the site of the previously described suspected infarct 2. 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 String sign is present. Combination of calcified atherosclerotic plaque and soft plaque causing the stenosis. 3. Moderate bilateral atherosclerotic plaque through the cavernous carotid arteries with stenosis approaching 60%. 4. Markedly fluid distended esophagus to the level of the lung apices. Patient is at risk for aspiration. 5. Hypotension were requiring intravenous norepinephrine 6. History of hypertension 7. Elevated white count 17.86K Note: Since the patient's last known well could not be determined, the patient was not a candidate for intravenous thrombolytics and no intravenous thrombolytics were administered. Plan: 1. Agree with transfer to a facility that has the capacity to evaluate patient for intra-arterial thrombolytics versus right carotid endarterectomy secondary to severe right internal carotid artery stenosis in the cervical region with near occlusion and string sign 2. Agree with workup to address dilated esophagus and assess for infection (2) Carotid stenosis, symptomatic, with infarction: (3) Encephalopathy acute: Consult Attestations 2 Medical Necessity Statement: The patient was evaluated by neurology for decreased level consciousness and stroke and severe carotid stenosis Coding Level of Care Code 54695 Diagnoses Right hemisphere, cerebral infarction I63.9 Carotid stenosis, symptomatic, with infarction I63.239 Encephalopathy acute G93.40
[2024-03-05 10:35] LABS: Troponin 5 2HR 13.79 ng/L (0-10)
[2024-03-05 10:39] LABS: Troponin 5 2HR Delta -6.21 ABS# (0-10)
== END 2024-03-05 10:42 | disposition short-term general hospital (02) ==
PROVIDERS: Emergency Provider Emergency Medicine; PCP Family Medicine
DX: I63.9 Cerebral infarction, unspecified (principal); A41.9 Sepsis, unspecified organism; G93.40 Encephalopathy, unspecified; I95.9 Hypotension, unspecified; E87.1 Hypo-osmolality and hyponatremia; I12.9 Hypertensive chronic kidney disease with stage 1 through stage 4 chronic kidney disease, or unspecified chronic kidney disease; N18.9 Chronic kidney disease, unspecified; E78.5 Hyperlipidemia, unspecified
CPT/HCPCS: 0241U; 36415; 36416; 36600; 51702; 70450; 70496; 70498; 71045; 80051; 80053; 80306; 80307; 81001; 82330; 82805; 82962; 83605; 84484; 85025; 86140; 87040; 93005; 96365; 96367; 96375; 99291; 99292; J2020; J2185; J2310; J7030

== ENCOUNTER → 2024-05-13 10:45 | Outpatient (BNVA) | payer MEDICARE, MEDICAID, SELFPAY | PROVIDERS: PCP Family Medicine; Visit Provider Internal Medicine Rheumatology | DX: L40.50 Arthropathic psoriasis, unspecified (principal); Z79.899 Other long term (current) drug therapy; Z71.89 Other specified counseling | CPT/HCPCS: 99214 ==

== ENCOUNTER 2024-07-08 14:12 | Oncology outpatient (recurring) (ONCR) | payer MEDICARE, MEDICAID, SELFPAY ==
[2024-07-08 14:59] LABS: Basophils % 0.5 %; Eosinophils # 0.3 10^3/uL (0.0-0.8); Eosinophils % 3.9 %; Hematocrit 33.6 % (36-47); Lymphocytes # 2.5 10^3/uL (0.8-4.8); Lymphocytes % 39.1 %; Mean Corpuscular HGB Conc 31.5 g/dL (30-55); Mean Corpuscular Hemoglobin 28.2 pg (27-33); Mean Corpuscular Volume 89.4 fl (85-98); Monocytes # 0.6 10^3/uL (0.2-0.9); Neutrophils # 3.03 10^3/uL (1.8-7.7); Neutrophils % 47.2 %; Nucleated Red Blood Cells % 0 %; Platelet Count 374 10^3/cmm (157-399); Red Blood Count 3.76 10^6/uL (3.85-5.65); Red Cell Distribution Width 13.4 % (12.1-15.1); White Blood Count 6.42 10^3/uL (3.29-11.43)
[2024-07-08] MEDS: sodium chloride 0.9% 250 ML 75 ML IV (15:09)
[2024-07-08] MEDS: acetaminophen 325 mg Tablet 650 MG PO (15:10)
[2024-07-08] MEDS: diphenhydrAMINE 50 mg/mL SDV 1mL 25 MG IVP (15:11)
[2024-07-08] MEDS: methylPREDNISolone sod succ 40 mg/mL INJ IVP (15:12)
[2024-07-08 15:14] LABS: Alanine Aminotransferase 11 U/L (0-33); Albumin Level 4.1 g/dL (3.5-5.2); Alkaline Phosphatase 142 U/L (35-105); Aspartate Amino Transferase 15 U/L (0-32); Globulin 3.1 g/dL (1.3-4.6); Total Bilirubin 0.2 mg/dL (0.15-1.2); Total Protein 7.2 g/dL (6.6-8.7)
[2024-07-08 15:16] VITALS: BP 116/71; PULSE 70; RESP 17; TEMP 36.3; O2SAT 98
[2024-07-08] MEDS: abatacept 1,000 MG in sodium chloride 0.9% (100 ml) 100 ML 200 MG IV (15:41)
[2024-07-08 16:26] VITALS: BP 112/76; PULSE 64; RESP 16; TEMP 36.4; O2SAT 96
[2024-07-11 09:56] LABS: Sed Rate by Modified Western 48 mm/h (< OR = 30)
== END 2024-07-18 23:59 | disposition home or self-care (01) ==
PROVIDERS: PCP Family Medicine; Visit Provider Internal Medicine Rheumatology
DX: L40.50 Arthropathic psoriasis, unspecified (principal); Z79.899 Other long term (current) drug therapy
CPT/HCPCS: 80076; 82565; 85025; 85652; 86140; 96365; 96375; A4222; J0129; J1200; J2919; J7050

== ENCOUNTER 2024-08-13 12:51 | Oncology outpatient (recurring) (ONCR) | payer MEDICARE, SELFPAY ==
[2024-08-13 13:10] VITALS: BP 111/63; PULSE 74; RESP 16; TEMP 36.7; O2SAT 98
[2024-08-13] MEDS: sodium chloride 0.9% 250 ML 75 ML IV (13:26)
[2024-08-13] MEDS: acetaminophen 325 mg Tablet 650 MG PO (13:27)
[2024-08-13] MEDS: diphenhydrAMINE 50 mg/mL SDV 1mL 25 MG IVP (13:28)
[2024-08-13] MEDS: methylPREDNISolone sod succ 125 mg/2 mL INJ 40 MG IVP (13:49)
[2024-08-13] MEDS: abatacept 1,000 MG in sodium chloride 0.9% (100 ml) 100 ML 200 MG IV (14:15)
[2024-08-13 15:00] VITALS: BP 124/70; PULSE 63; RESP 17; TEMP 37.2; O2SAT 94
== END 2024-08-15 23:59 | disposition home or self-care (01) ==
PROVIDERS: PCP Family Medicine; Visit Provider Internal Medicine Rheumatology
DX: L40.50 Arthropathic psoriasis, unspecified (principal); Z79.899 Other long term (current) drug therapy
CPT/HCPCS: 96365; 96375; A4222; J0129; J1200; J2919; J7050

== ENCOUNTER 2024-08-18 13:51 | Outpatient (CLI) | payer MEDICARE, SELFPAY ==
[2024-08-18 14:18] LABS: Basophils % 0.1 %; Hematocrit 34.1 % (36-47); Lymphocytes # 1.1 10^3/uL (0.8-4.8); Lymphocytes % 14.6 %; Mean Corpuscular HGB Conc 32.6 g/dL (30-55); Monocytes # 0.1 10^3/uL (0.2-0.9); Monocytes % 0.8 %; Neutrophils # 6.53 10^3/uL (1.8-7.7); Neutrophils % 83.6 %; Nucleated Red Blood Cells % 0 %; Platelet Count 398 10^3/cmm (157-399); Red Blood Count 3.83 10^6/uL (3.85-5.65); Red Cell Distribution Width 13.1 % (12.1-15.1); White Blood Count 7.81 10^3/uL (3.29-11.43)
[2024-08-18 14:23] LABS: Bilirubin Urine Negative (Negative); Blood Urine 1+ (Negative); Glucose Urine UA Negative (Normal); Ketones Urine Negative (Negative); Leukocyte Esterase Urine 3+ (Negative); Nitrate Urine Negative (Negative); Protein Urine Negative (Negative); Specific Gravity, Urine 1.007 (1.005-1.030); Urine Appearance Turbid (CLEAR); Urine Color Yellow (Yellow); Urobilinogen Urine 0.2 mg/dL (Negative); pH Urine 5.5 (5-7)
[2024-08-18 14:42] LABS: Add Urine Microscopic? YES; RBC Urine 0-4 /hpf (0-2); UA Manual Slide Review YES; UA Slide Review UA Slide Review Perf
[2024-08-18 14:43] LABS: Bacteria Urine TRACE /hpf; Squamous Epithelial Cell Urine 25-40 /hpf (0-5); WBC Urine 51-100 /hpf (0-5)
[2024-08-18 14:54] LABS: Folate Level 13.6 ng/mL (4.8-37.3)
[2024-08-18 14:56] LABS: 25 Hydroxy Vitamin D 22 ng/mL (30-100); Alanine Aminotransferase 12 U/L (0-33); Albumin Level 3.9 g/dL (3.5-5.2); Alkaline Phosphatase 113 U/L (35-105); Anion Gap 16.6 (5-19); Aspartate Amino Transferase 12 U/L (0-32); Blood Urea Nitrogen 28 mg/dL (8-23); C Reactive Protein 12.6 mg/L (0.0-4.9); Calcium 8.7 mg/dL (8.5-10.5); Carbon Dioxide 21 mmol/L (22-29); Chloride 97 mmol/L (98-107); Chol HDL Ratio 3.33 mg/dL (0.0-4.40); Cholesterol 153 mg/dL (0-200); Globulin 3.1 g/dL (1.3-4.6); Glucose 302 mg/dL (65-115); HDL Cholesterol 46 mg/dL (60-100); Iron 42 ug/dL (37-145); LDL Cholesterol Calculated 65 mg/dL (50-129); LDL HDL Ratio 1.41 RATIO (0.00-3.22); Osmolality Calculated 287 mOsm/kg (285-295); Potassium 4.6 mmol/L (3.5-5.1); Sodium 130 mmol/L (136-145); Thyroid Stimulating Hormone 0.32 uIU/mL (0.27-4.20); Total Bilirubin 0.2 mg/dL (0.15-1.2); Triglycerides 209 mg/dL (0-150); Vitamin B12 650 pg/mL (232-1245)
== END 2024-08-18 13:52 | disposition home or self-care (01) ==
LOC: LAB 13:54
PROVIDERS: PCP Family Medicine; Visit Provider Internal Medicine Gastroenterology
DX: K75.4 Autoimmune hepatitis (principal); E55.9 Vitamin D deficiency, unspecified; E87.1 Hypo-osmolality and hyponatremia; R41.82 Altered mental status, unspecified; D64.9 Anemia, unspecified; Z79.899 Other long term (current) drug therapy; R79.89 Other specified abnormal findings of blood chemistry; R30.9 Painful micturition, unspecified
CPT/HCPCS: 36415; 80053; 80061; 81001; 82306; 82607; 82746; 83540; 83735; 84439; 84443; 85025; 86140

== ENCOUNTER → 2024-08-27 13:00 | Outpatient (BNVA) | payer MEDICARE, MEDICAID, SELFPAY | PROVIDERS: PCP Family Medicine; Visit Provider Family Medicine | DX: N39.0 Urinary tract infection, site not specified (principal); N18.32 Chronic kidney disease, stage 3b; E83.39 Other disorders of phosphorus metabolism; R73.9 Hyperglycemia, unspecified; Z79.899 Other long term (current) drug therapy | CPT/HCPCS: 80048; 81000; 81003; 82043; 83036; 84100 ==

== ENCOUNTER 2024-09-10 13:39 | Oncology outpatient (recurring) (ONCR) | payer MEDICARE, SELFPAY ==
[2024-09-10 13:47] VITALS: BP 125/63; PULSE 60; TEMP 36.5
[2024-09-10] MEDS: sodium chloride 0.9% 250 ML 75 ML IV (14:05)
[2024-09-10] MEDS: acetaminophen 325 mg Tablet 650 MG PO (14:07)
[2024-09-10] MEDS: methylPREDNISolone sod succ 40 mg/mL INJ IVP (14:09)
[2024-09-10] MEDS: diphenhydrAMINE 50 mg/mL SDV 1mL 25 MG IVP (14:14)
[2024-09-10] MEDS: abatacept 1,000 MG in sodium chloride 0.9% (100 ml) 100 ML 200 MG IV (14:40)
[2024-09-10 15:20] VITALS: BP 116/61; PULSE 60; RESP 17; TEMP 36.6; O2SAT 98
== END 2024-09-15 23:59 | disposition home or self-care (01) ==
PROVIDERS: PCP Family Medicine; Visit Provider Internal Medicine Rheumatology
DX: L40.50 Arthropathic psoriasis, unspecified (principal); Z79.899 Other long term (current) drug therapy
CPT/HCPCS: 96365; 96375; A4222; J0129; J1200; J2919; J7050; J9999

== ENCOUNTER → 2024-09-23 09:39 | Outpatient (BNVA) | payer MEDICARE, MEDICAID, SELFPAY | PROVIDERS: PCP Family Medicine; Visit Provider Internal Medicine Rheumatology | DX: L40.50 Arthropathic psoriasis, unspecified (principal); Z79.899 Other long term (current) drug therapy; Z71.89 Other specified counseling | CPT/HCPCS: 99214 ==

== ENCOUNTER 2024-10-08 13:30 | Oncology outpatient (recurring) (ONCR) | payer OTHER, SELFPAY ==
[2024-10-08 13:50] VITALS: BP 152/69; PULSE 72; RESP 16; TEMP 36.6; O2SAT 99
[2024-10-08] MEDS: sodium chloride 0.9% 250 ML 75 ML IV (14:13)
[2024-10-08] MEDS: acetaminophen 325 mg Tablet 650 MG PO (14:13)
[2024-10-08] MEDS: methylPREDNISolone sod succ 40 mg/mL INJ IVP (14:14)
[2024-10-08] MEDS: diphenhydrAMINE 50 mg/mL SDV 1mL 25 MG IVP (14:17)
[2024-10-08] MEDS: abatacept 1,000 MG in sodium chloride 0.9% (100 ml) 100 ML 200 MG IV (14:53)
== END 2024-10-15 23:59 | disposition home or self-care (01) ==
LOC: ONCMED 13:30
PROVIDERS: PCP Family Medicine; Visit Provider Internal Medicine Rheumatology
DX: L40.50 Arthropathic psoriasis, unspecified (principal); Z79.899 Other long term (current) drug therapy
CPT/HCPCS: 96365; 96375; A4222; J0129; J1200; J2919; J7050; J9999

== ENCOUNTER 2024-11-26 08:13 | Oncology outpatient (recurring) (ONCR) | payer MEDICARE, SELFPAY ==
[2024-11-26 08:24] VITALS: BP 130/57; PULSE 74; RESP 16; TEMP 36.4; O2SAT 98
[2024-11-26 08:53] LABS: Basophils % 0.2 %; Eosinophils # 0.1 10^3/uL (0.0-0.8); Eosinophils % 1.7 %; Hematocrit 35.8 % (36-47); Lymphocytes # 3.1 10^3/uL (0.8-4.8); Lymphocytes % 38.1 %; Mean Corpuscular HGB Conc 31.3 g/dL (30-55); Mean Corpuscular Hemoglobin 28.1 pg (27-33); Mean Corpuscular Volume 89.7 fl (85-98); Mean Platelet Volume 9.5 fL (7.4-10.4); Monocytes # 0.6 10^3/uL (0.2-0.9); Monocytes % 7.5 %; Neutrophils # 4.29 10^3/uL (1.8-7.7); Neutrophils % 52.1 %; Nucleated Red Blood Cells % 0 %; Platelet Count 321 10^3/cmm (157-399); Red Blood Count 3.99 10^6/uL (3.85-5.65); Red Cell Distribution Width 12.9 % (12.1-15.1); White Blood Count 8.24 10^3/uL (3.29-11.43)
[2024-11-26 09:09] LABS: Erythrocyte Sedimentation Rate 30 mm/hr (0-15)
[2024-11-26] MEDS: sodium chloride 0.9% 250 ML 75 ML IV (09:13)
[2024-11-26] MEDS: methylPREDNISolone sod succ 40 mg/mL INJ IVP (09:15)
[2024-11-26] MEDS: acetaminophen 325 mg Tablet 650 MG PO (09:16)
[2024-11-26] MEDS: diphenhydrAMINE 50 mg/mL SDV 1mL 25 MG IVP (09:19)
[2024-11-26] MEDS: abatacept 750 MG in sodium chloride 0.9% (100 ml) 100 ML 200 MG IV (10:06)
[2024-11-26 11:24] LABS: Alanine Aminotransferase 14 U/L (0-33); Alkaline Phosphatase 78 U/L (35-105); Aspartate Amino Transferase 17 U/L (0-32); Bilirubin Direct 0.08 mg/dL (0.00-0.30); Globulin 2.8 g/dL (1.3-4.6); Total Bilirubin 0.2 mg/dL (0.15-1.2); Total Protein 6.8 g/dL (6.6-8.7)
== END 2024-12-15 23:59 | disposition home or self-care (01) ==
PROVIDERS: PCP Family Medicine; Visit Provider Internal Medicine Rheumatology
DX: L40.50 Arthropathic psoriasis, unspecified (principal); Z79.899 Other long term (current) drug therapy
CPT/HCPCS: 80076; 82565; 85025; 85651; 86140; 96365; A4222; J0129; J1200; J2919; J7050; J9999

== ENCOUNTER 2024-12-24 08:14 | Oncology outpatient (recurring) (ONCR) | payer MEDICARE, SELFPAY ==
[2024-12-24 08:21] VITALS: BP 163/70; PULSE 62; TEMP 36.8; O2SAT 98
[2024-12-24] MEDS: diphenhydrAMINE 50 mg/mL SDV 1mL 25 MG IVP (09:09)
[2024-12-24] MEDS: abatacept 750 MG in sodium chloride 0.9% (100 ml) 100 ML 200 MG IV (09:43)
[2024-12-24 10:26] VITALS: BP 134/50; PULSE 67; TEMP 36.6; O2SAT 97
== END 2025-01-15 23:59 | disposition home or self-care (01) ==
PROVIDERS: PCP Family Medicine; Visit Provider Internal Medicine Rheumatology
DX: Z53.9 Procedure and treatment not carried out, unspecified reason; Z51.12 Encounter for antineoplastic immunotherapy; L40.50 Arthropathic psoriasis, unspecified; Z79.899 Other long term (current) drug therapy
CPT/HCPCS: 96365; 96375; A4222; J0129; J1200; J7050; J9999

== ENCOUNTER → 2025-01-20 11:06 | Outpatient (BNVA) | payer MEDICARE, MEDICAID, SELFPAY | PROVIDERS: PCP Family Medicine; Visit Provider Internal Medicine Rheumatology | DX: L40.50 Arthropathic psoriasis, unspecified (principal); Z79.899 Other long term (current) drug therapy; Z71.85 Encounter for immunization safety counseling | CPT/HCPCS: 99214 ==

== ENCOUNTER 2025-01-21 08:15 | Oncology outpatient (recurring) (ONCR) | payer MEDICARE, SELFPAY ==
[2025-01-21 08:23] VITALS: BP 129/65; PULSE 70; RESP 16; TEMP 36.7; O2SAT 99
[2025-01-21] MEDS: diphenhydrAMINE 50 mg/mL SDV 1mL 25 MG IVP (09:06)
[2025-01-21] MEDS: abatacept 750 MG in sodium chloride 0.9% (100 ml) 100 ML 200 MG IV (09:51)
[2025-01-21 10:31] VITALS: BP 124/63; PULSE 73; RESP 17; TEMP 36.1; O2SAT 98
== END 2025-02-15 23:59 | disposition home or self-care (01) ==
LOC: ONCMED 08:15
PROVIDERS: PCP Family Medicine; Visit Provider Internal Medicine Rheumatology
DX: L40.50 Arthropathic psoriasis, unspecified (principal); Z79.899 Other long term (current) drug therapy
CPT/HCPCS: 96365; 96375; A4222; J0129; J1200; J7050; J9999

== ENCOUNTER 2025-04-15 09:21 | Outpatient (CLI) | payer MEDICARE, MEDICAID, SELFPAY ==
[2025-04-15 09:59] LABS: Hematocrit 37.3 % (36-47); Hemoglobin 12.10 g/dL (11.27-16.99); Mean Corpuscular HGB Conc 32.4 g/dL (30-55); Mean Corpuscular Hemoglobin 28.3 pg (27-33); Mean Corpuscular Volume 87.4 fl (85-98); Nucleated Red Blood Cells % 0 %; Platelet Count 320 10^3/cmm (157-399); Red Blood Count 4.27 10^6/uL (3.85-5.65); White Blood Count 7.48 10^3/uL (3.29-11.43)
[2025-04-15 10:30] LABS: Alanine Aminotransferase 11 U/L (0-33); Albumin Level 4.3 g/dL (3.5-5.2); Alkaline Phosphatase 112 U/L (35-105); Aspartate Amino Transferase 13 U/L (0-32); Globulin 3.3 g/dL (1.3-4.6); Total Protein 7.6 g/dL (6.6-8.7)
[2025-04-15 10:47] LABS: Hepatitis B Surface Antigen Non-Reactive (Nonreactive)
== END 2025-04-15 09:22 | disposition home or self-care (01) ==
LOC: LAB 09:23
PROVIDERS: PCP Family Medicine; Visit Provider Internal Medicine Rheumatology
DX: Z79.899 Other long term (current) drug therapy (principal); L40.50 Arthropathic psoriasis, unspecified
CPT/HCPCS: 36415; 80076; 82306; 82565; 85025; 85651; 86140; 86480; 86704; 86803; 87340

== ENCOUNTER → 2025-05-05 11:00 | Outpatient (BNVA) | payer MEDICARE, MEDICAID, SELFPAY | PROVIDERS: PCP Family Medicine; Visit Provider Family Medicine | DX: L40.50 Arthropathic psoriasis, unspecified (principal); G62.9 Polyneuropathy, unspecified; F41.9 Anxiety disorder, unspecified; F32.A Depression, unspecified; Z79.899 Other long term (current) drug therapy | CPT/HCPCS: 82607; 82746; 84443; 85025 ==

== ENCOUNTER → 2025-06-02 10:38 | Outpatient (BNVA) | payer MEDICARE, MEDICAID, SELFPAY | PROVIDERS: PCP Family Medicine; Visit Provider Internal Medicine Rheumatology | DX: L40.50 Arthropathic psoriasis, unspecified (principal); Z79.899 Other long term (current) drug therapy; Z71.85 Encounter for immunization safety counseling; M13.80 Other specified arthritis, unspecified site | CPT/HCPCS: 99214 ==